=== PATIENT | female | born 1940 | race Caucasian/White ===

== ENCOUNTER 2017-08-24 09:43 | Inpatient (IN) | payer MEDICARE, OTHER ==
[~2017-08-24] VITALS: Ht 160 cm; Wt 91.3 kg
[~2017-08-24 09:43] MED LIST: ASPI81CH43 PO; ATEN-60 PO; DULO30CA2 PO; FURO20TA3 PO; GABA100C9; LEVA3NEB9 IN; LEVO200I5 IV; LEVO75TA6; LIS10T PO; MORP15TA PO; NITR0.4S29 SL; POT10T PO; SENN-58 PO; SIMV-8 PO; TIOTCAP IN
[2017-08-24] MEDS ORDERED: LEVOFLOXACIN 500MG 100 ML IV ONE (11:30)
[2017-08-24] MEDS ORDERED: methylPREDNISolone SOD SUCC 125 MG/2 ML VL IV ONE (11:30)
[2017-08-24] MEDS ORDERED: ALBUTEROL SULF 2.5 MG/0.5ML(0.5%) NEB SOLN HHN ONE (11:30)
[2017-08-24] MEDS ORDERED: IPRATROPIUM BROM 0.5 MG/2.5ML INH SOL HHN ONE (11:30)
[2017-08-24 13:25] LABS: Basophils # (auto) 0 uL; Basophils % (auto) 0.4 % (0.0-2.0); Eosinophils # (auto) 0.1 uL; Eosinophils % (auto) 0.5 % (0.0-7.0); Hematocrit 41.7 % (36.0-46.0); Hemoglobin 13.3 g/dL (12.2-16.2); Lymphocytes # (auto) 0.9 uL; Lymphocytes % (auto) 7.1 % (10.0-50.0); Mean Corpuscular Hemoglobin 26.7 pg (28.0-32.0); Mean Corpuscular Hgb Conc. 31.8 g/dL (32.0-36.0); Mean Corpuscular Volume 84.2 fL (80.0-100.0); Monocytes # (auto) 0.9 uL; Monocytes % (auto) 6.4 % (0.0-12.0); Neutrophils # (auto) 11.4 uL; Neutrophils % (auto) 85.6 % (37.0-80.0); Nucleated Red Blood Cells % 0.1 %; Platelet Count (auto) 358 10^3/uL (140-450); Red Blood Cells 4.96 10^6/uL (4.0-5.20); Red Cell Distribution Width 14.5 % (11.8-14.3); White Blood Cell 13.4 10^3/uL (4.4-10.8)
[2017-08-24 13:38] LABS: BUN/Creatinine Ratio 11.7; Bilirubin, Total 0.7 mg/dL (0.2-1.0); Calcium 8.4 mg/dL (8.5-10.1); Magnesium 2.5 mg/dL (1.6-2.6); Potassium 3.9 mmol/L (3.5-5.1); Total Protein 7.7 g/dL (6.4-8.2)
[2017-08-24] MEDS ORDERED: POTASSIUM CHL 10 Meq TABLET PO ONE (18:45)
[2017-08-24] MEDS ORDERED: FUROSEMIDE 40 MG/4 ML VIAL IV ONE (18:45)
[2017-08-24] MEDS ORDERED: SENNA 8.6 MG TAB PO PRN (19:00)
[2017-08-24] MEDS ORDERED: ACETAMINOPHEN 325 MG TAB PO PRN (19:00)
[2017-08-24] MEDS ORDERED: NITROGLYCERIN 0.4 MG SL TAB SL PRN (19:00)
[2017-08-24] MEDS ORDERED: ONDANSETRON HCL 4 MG/2 ML VIAL IV PRN (19:00)
[2017-08-24] MEDS ORDERED: cefTRIAXone 1GM/10ml IVPUSH 10 ML IV ONE (19:00)
[2017-08-24] MEDS ORDERED: TEMAZEPAM 15 MG CAP PO PRN (19:00)
[2017-08-24] MEDS ORDERED: MORPHINE SULFATE 10 MG/ML INJ 1ML SDV IV PRN ×2 (19:00)
[2017-08-24 20:00] VITALS: BP 151/56
[2017-08-24] MEDS: FAMOTIDINE 20 MG TAB PO SCH (21:35)
[2017-08-24] MEDS: SODIUM CHLOR 0.9% PF (SALINE LOCK) 10ML VIAL IV SCH (21:37)
[2017-08-25 02:40] VITALS: BP 151/56
[2017-08-25 05:52] VITALS: BP 138/69
[2017-08-25] MEDS: ALBUTEROL SULF 2.5 MG/0.5ML(0.5%) NEB SOLN NEB SCH ×4 (05:59→20:18)
[2017-08-25] MEDS: IPRATROPIUM BROM 0.5 MG/2.5ML INH SOL NEB SCH ×4 (05:59→20:18)
[2017-08-25] MEDS: SODIUM CHLOR 0.9% PF (SALINE LOCK) 10ML VIAL IV SCH ×3 (06:12→22:10)
[2017-08-25] MEDS: LEVOTHYROXINE SODIUM 50 MCG TAB PO SCH (06:13)
[2017-08-25 06:33] LABS: Basophils # (auto) 0 uL; Basophils % (auto) 0.2 % (0.0-2.0); Eosinophils # (auto) 0 uL; Hemoglobin 12.9 g/dL (12.2-16.2); Lymphocytes # (auto) 0.6 uL; Lymphocytes % (auto) 6.1 % (10.0-50.0); Mean Corpuscular Hemoglobin 27.6 pg (28.0-32.0); Mean Corpuscular Volume 83.6 fL (80.0-100.0); Monocytes # (auto) 0.3 uL; Monocytes % (auto) 2.9 % (0.0-12.0); Neutrophils % (auto) 90.8 % (37.0-80.0); Platelet Count (auto) 329 10^3/uL (140-450); Red Blood Cells 4.67 10^6/uL (4.0-5.20); Red Cell Distribution Width 14.4 % (11.8-14.3); White Blood Cell 9.9 10^3/uL (4.4-10.8)
[2017-08-25 06:59] LABS: BUN/Creatinine Ratio 21.4; Bilirubin, Total 0.5 mg/dL (0.2-1.0); Calcium 8.5 mg/dL (8.5-10.1); Potassium 4.7 mmol/L (3.5-5.1); Total Protein 7.6 g/dL (6.4-8.2)
[2017-08-25 09:01] VITALS: BP 119/60
[2017-08-25] MEDS: MELOXICAM 7.5 MG PO SCH (10:00)
[2017-08-25] MEDS: LOSARTAN POTASSIUM 50 MG TAB PO SCH ×2 (10:00→17:46)
[2017-08-25] MEDS: FAMOTIDINE 20 MG TAB PO SCH ×2 (10:00→22:00)
[2017-08-25] MEDS: POTASSIUM CHL 10 Meq TABLET PO SCH (10:02)
[2017-08-25] MEDS: ASPirin-EC 81 mg tab PO SCH (10:02)
[2017-08-25] MEDS: MULTIPLE VITAMIN TAB PO SCH (10:03)
[2017-08-25] MEDS: HYDROcodone-ACET 5/325MG TAB PO PRN (10:03)
[2017-08-25] MEDS: Boost Glucose Control 8 Ounces PO SCH ×3 (10:04→18:01)
[2017-08-25] MEDS: FUROSEMIDE 40 MG/4 ML VIAL IV SCH (10:05)
[2017-08-25 12:02] VITALS: BP 120/67
[2017-08-25] MEDS: cefTRIAXone 1GM/10ml IVPUSH 10 ML IV SCH (12:26)
[2017-08-25 16:00] VITALS: BP 147/69
[2017-08-25] MEDS ORDERED: THROAT LOZENGES(CEPASTAT) MT PRN (18:00)
[2017-08-25] MEDS: PROMETHAZINE W/CODEINE 5 ML ORAL SYRUP PO PRN ×2 (18:25→22:28)
[2017-08-25 22:32] LABS: Urine Bacteria NONE SEEN /hpf (None Seen); Urine Blood Negative /uL (Negative); Urine Specific Gravity 1.017 (1.001-1.035); Urine WBC 2 /hpf (0 - 5)
[2017-08-25 22:59] VITALS: BP 162/82
[2017-08-26] VITALS (34 sets, daily range): BP systolic 45–185; BP diastolic 26–88
[2017-08-26] MEDS: ALBUTEROL SULF 2.5 MG/0.5ML(0.5%) NEB SOLN NEB SCH ×4 (00:28→18:17)
[2017-08-26] MEDS: IPRATROPIUM BROM 0.5 MG/2.5ML INH SOL NEB SCH ×4 (00:28→18:17)
[2017-08-26] MEDS: HYDROcodone-ACET 5/325MG TAB PO PRN (01:34)
[2017-08-26] MEDS ORDERED: METOPROLOL TARTRATE 1MG/1ML-5ML VIAL IV ONE (03:00)
[2017-08-26] MEDS: LEVOTHYROXINE SODIUM 50 MCG TAB PO SCH (06:00)
[2017-08-26] MEDS: SODIUM CHLOR 0.9% PF (SALINE LOCK) 10ML VIAL IV SCH ×3 (06:13→21:56)
[2017-08-26 06:41] LABS: Basophils # (auto) 0 uL; Basophils % (auto) 0.1 % (0.0-2.0); Eosinophils # (auto) 0 uL; Eosinophils % (auto) 0.1 % (0.0-7.0); Hematocrit 38.9 % (36.0-46.0); Hemoglobin 12.9 g/dL (12.2-16.2); Lymphocytes # (auto) 0.8 uL; Lymphocytes % (auto) 7.5 % (10.0-50.0); Mean Corpuscular Hemoglobin 27.2 pg (28.0-32.0); Mean Corpuscular Hgb Conc. 33.2 g/dL (32.0-36.0); Mean Corpuscular Volume 81.8 fL (80.0-100.0); Monocytes # (auto) 1.1 uL; Monocytes % (auto) 10.3 % (0.0-12.0); Neutrophils # (auto) 8.8 uL; Nucleated Red Blood Cells % 0.1 %; Platelet Count (auto) 309 10^3/uL (140-450); Red Blood Cells 4.76 10^6/uL (4.0-5.20); Red Cell Distribution Width 14.8 % (11.8-14.3); White Blood Cell 10.7 10^3/uL (4.4-10.8)
[2017-08-26 07:27] LABS: Albumin 3.1 g/dL (3.4-5.0); BUN/Creatinine Ratio 25.6; Bilirubin, Total 0.4 mg/dL (0.2-1.0); Calcium 8.5 mg/dL (8.5-10.1); Potassium 4.3 mmol/L (3.5-5.1); Total Protein 7.6 g/dL (6.4-8.2)
[2017-08-26] MEDS ORDERED: LABETALOL HCL 5 MG/ML ML 20ML VIAL IV ONE ×2 (09:39→13:30)
[2017-08-26] MEDS: LOSARTAN POTASSIUM 50 MG TAB PO SCH (10:00)
[2017-08-26] MEDS: MULTIPLE VITAMIN TAB PO SCH (10:00)
[2017-08-26] MEDS: ASPirin-EC 81 mg tab PO SCH (10:00)
[2017-08-26] MEDS: MELOXICAM 7.5 MG PO SCH (10:00)
[2017-08-26] MEDS: POTASSIUM CHL 10 Meq TABLET PO SCH (10:00)
[2017-08-26] MEDS: FAMOTIDINE 20 MG TAB PO SCH ×2 (10:00→21:55)
[2017-08-26] MEDS ORDERED: FUROSEMIDE 40 MG/4 ML VIAL IV ONE (12:00)
[2017-08-26] MEDS ORDERED: ALBUTEROL SULF 2.5 MG/0.5ML(0.5%) NEB SOLN NEB ONE (12:00)
[2017-08-26] MEDS ORDERED: IPRATROPIUM BROM 0.5 MG/2.5ML INH SOL NEB ONE (12:00)
[2017-08-26] MEDS: Boost Glucose Control 8 Ounces PO SCH ×3 (12:00→18:00)
[2017-08-26] MEDS: cefTRIAXone 1GM/10ml IVPUSH 10 ML IV SCH (13:25)
[2017-08-26] MEDS: FUROSEMIDE 40 MG/4 ML VIAL IV SCH ×2 (13:27→20:23)
[2017-08-26] MEDS ORDERED: LORazepam 2MG/ML-1ML VIAL ONE (14:07)
[2017-08-26] MEDS ORDERED: LORazepam 2MG/ML-1ML VIAL IV ONE (14:15)
[2017-08-26] MEDS ORDERED: ETOMIDATE (2MG/ML) 20ML VIAL IV ONE (16:21)
[2017-08-26] MEDS ORDERED: ROCURONIUM 10MG/ML 10ML VIAL IV ONE (16:22)
[2017-08-26] MEDS ORDERED: SUCCINYLCHOLINE CHLORIDE 20 MG/ML 10ML VIAL IV ONE (16:22)
[2017-08-26] MEDS ORDERED: MIDAZOLAM HCL 1MG/1ML-2 ML VIAL ONE (16:28)
[2017-08-26] MEDS ORDERED: PROPOFOL 100 ML IV ONE (16:32)
[2017-08-26] MEDS ORDERED: NOREPINEPHRINE 8 MG/250ML KIT 250 ML IV ONE (18:30)
[2017-08-26] MEDS: PROPOFOL 100 ML IV SCH (19:20)
[2017-08-26] MEDS: NOREPINEPHRINE 8 MG/250ML KIT 250 ML IV SCH (20:11)
[2017-08-26] MEDS: MIDAZOLAM DRIP 50 mg/50mL 50 ML IV SCH (20:11)
[2017-08-26] MEDS: fentaNYL Drip 2500mCg/250mlNS 250 ML IV SCH (20:48)
[2017-08-26] MEDS ORDERED: POTASSIUM CHL 10 Meq TABLET PO SCH (22:00)
[2017-08-27] VITALS (105 sets, daily range): BP systolic 68–142; BP diastolic 43–79
[2017-08-27] MEDS: ALBUTEROL SULF 2.5 MG/0.5ML(0.5%) NEB SOLN NEB SCH ×4 (00:13→18:00)
[2017-08-27] MEDS: IPRATROPIUM BROM 0.5 MG/2.5ML INH SOL NEB SCH ×4 (00:14→18:00)
[2017-08-27] MEDS: MIDAZOLAM DRIP 50 mg/50mL 50 ML IV SCH ×2 (01:34→10:15)
[2017-08-27] MEDS: NOREPINEPHRINE 8 MG/250ML KIT 250 ML IV SCH ×2 (01:35→14:28)
[2017-08-27 03:27] LABS: Hemoglobin 11.8 g/dL (12.2-16.2); Mean Corpuscular Hgb Conc. 32.9 g/dL (32.0-36.0); Platelet Count (auto) 274 10^3/uL (140-450); Red Blood Cells 4.39 10^6/uL (4.0-5.20); Red Cell Distribution Width 15.1 % (11.8-14.3); White Blood Cell 7.7 10^3/uL (4.4-10.8)
[2017-08-27 03:30] LABS: Basophils % (manual) 0 (0.0-2.0); Blast Cells 0; Eosinophils % (manual) 0 (0-7); Metamyelocytes % 0; Myelocytes % 0; Promyelocytes % 0; Reactive Lymphocytes 0
[2017-08-27 04:03] LABS: Albumin 2.7 g/dL (3.4-5.0); BUN/Creatinine Ratio 23.7; Bilirubin, Total 0.6 mg/dL (0.2-1.0); Calcium 7.6 mg/dL (8.5-10.1); Potassium 3.8 mmol/L (3.5-5.1); Total Protein 6.6 g/dL (6.4-8.2)
[2017-08-27] MEDS: SODIUM CHLOR 0.9% PF (SALINE LOCK) 10ML VIAL IV SCH ×3 (05:42→21:29)
[2017-08-27] MEDS: FUROSEMIDE 40 MG/4 ML VIAL IV SCH ×2 (05:42→10:01)
[2017-08-27] MEDS: LEVOTHYROXINE SODIUM 50 MCG TAB PO SCH (06:34)
[2017-08-27 06:54] LABS: Band Neutrophils % (manual) 6; Lymphocytes % (manual) 19 (10.0-50.0); Monocytes % (manual) 22 (0-12)
[2017-08-27] MEDS: Boost Glucose Control 8 Ounces PO SCH ×2 (08:00→12:00)
[2017-08-27] MEDS: LOSARTAN POTASSIUM 50 MG TAB PO SCH (10:00)
[2017-08-27] MEDS: ASPirin-EC 81 mg tab PO SCH (10:00)
[2017-08-27] MEDS: MELOXICAM 7.5 MG PO SCH (10:00)
[2017-08-27] MEDS: MULTIPLE VITAMIN TAB PO SCH (10:01)
[2017-08-27] MEDS: FAMOTIDINE 20 MG TAB PO SCH (10:01)
[2017-08-27] MEDS: POTASSIUM CHL 10% (20 MEQ/15ML) 15ml ORAL SOLN PO SCH ×2 (10:02→21:29)
[2017-08-27] MEDS: cefTRIAXone 1GM/10ml IVPUSH 10 ML IV SCH (10:03)
[2017-08-27] MEDS ORDERED: ENOXAPARIN SOD 40 MG/0.4 ML SYRINGE SC ONE (13:00)
[2017-08-27] MEDS: CLINDAMYCIN 600MG IV 50 ML IV SCH ×2 (13:28→21:29)
[2017-08-27] MEDS: PROPOFOL 100 ML IV SCH (14:49)
[2017-08-27] MEDS: fentaNYL Drip 2500mCg/250mlNS 250 ML IV SCH (15:53)
[2017-08-27] MEDS: MIDAZOLAM DRIP 100 mg/100mL NS 100 ML IV SCH (21:30)
[2017-08-28] VITALS (100 sets, daily range): BP systolic 79–136; BP diastolic 43–99
[2017-08-28] MEDS: ALBUTEROL SULF 2.5 MG/0.5ML(0.5%) NEB SOLN NEB SCH ×5 (00:03→23:50)
[2017-08-28] MEDS: IPRATROPIUM BROM 0.5 MG/2.5ML INH SOL NEB SCH ×5 (00:03→23:50)
[2017-08-28 04:22] LABS: Basophils # (auto) 0 uL; Basophils % (auto) 0.8 % (0.0-2.0); Eosinophils # (auto) 0 uL; Eosinophils % (auto) 0.3 % (0.0-7.0); Hemoglobin 11.6 g/dL (12.2-16.2); Lymphocytes # (auto) 1.2 uL; Lymphocytes % (auto) 21.7 % (10.0-50.0); Mean Corpuscular Hemoglobin 26.8 pg (28.0-32.0); Mean Corpuscular Hgb Conc. 33.2 g/dL (32.0-36.0); Mean Corpuscular Volume 80.8 fL (80.0-100.0); Monocytes # (auto) 0.9 uL; Monocytes % (auto) 16.3 % (0.0-12.0); Neutrophils # (auto) 3.5 uL; Neutrophils % (auto) 60.9 % (37.0-80.0); Nucleated Red Blood Cells % 0.1 %; Platelet Count (auto) 231 10^3/uL (140-450); Red Blood Cells 4.34 10^6/uL (4.0-5.20); Red Cell Distribution Width 14.7 % (11.8-14.3); White Blood Cell 5.7 10^3/uL (4.4-10.8)
[2017-08-28 04:31] LABS: Potassium 3.7 mmol/L (3.5-5.1)
[2017-08-28 04:34] LABS: BUN/Creatinine Ratio 26.5; Calcium 8.2 mg/dL (8.5-10.1)
[2017-08-28] MEDS: SODIUM CHLOR 0.9% PF (SALINE LOCK) 10ML VIAL IV SCH ×3 (05:47→22:13)
[2017-08-28] MEDS: CLINDAMYCIN 600MG IV 50 ML IV SCH ×2 (05:47→14:35)
[2017-08-28] MEDS: LEVOTHYROXINE SODIUM 25 MCG TAB PO SCH (05:48)
[2017-08-28] MEDS: MIDAZOLAM DRIP 100 mg/100mL NS 100 ML IV SCH ×2 (06:43→19:00)
[2017-08-28] MEDS: cefTRIAXone 1GM/10ml IVPUSH 10 ML IV SCH (10:11)
[2017-08-28] MEDS: ENOXAPARIN SOD 40 MG/0.4 ML SYRINGE SC SCH (10:11)
[2017-08-28] MEDS: ASPirin 81 mg TAB PO SCH (10:11)
[2017-08-28] MEDS: FAMOTIDINE (10MG/ML) 2ML VL IV SCH (10:11)
[2017-08-28] MEDS: POTASSIUM CHL 10% (20 MEQ/15ML) 15ml ORAL SOLN PO SCH ×2 (10:16→22:30)
[2017-08-28] MEDS ORDERED: VANCOMYCIN PER PHARMACY 0 MG IV SCH (16:15)
[2017-08-28] MEDS ORDERED: FLUCONAZOLE 200MG/100ML 100 ML IV ONE (16:15)
[2017-08-28] MEDS ORDERED: Fibersource Hn 1 Liter GT SCH (16:15)
[2017-08-28] MEDS ORDERED: Nutren Pulmonary 1 Liter GT SCH (16:45)
[2017-08-28] MEDS: PROPOFOL 100 ML IV SCH (16:46)
[2017-08-28] MEDS: fentaNYL Drip 2500mCg/250mlNS 250 ML IV SCH ×2 (17:09→19:42)
[2017-08-28] MEDS ORDERED: VANCOMYCIN 1,250 MG in D5W 5% 250 ML IV SCH (18:00)
[2017-08-28] MEDS: NOREPINEPHRINE 8 MG/250ML KIT 250 ML IV SCH (19:42)
[2017-08-29] VITALS (101 sets, daily range): BP systolic 83–197; BP diastolic 43–131
[2017-08-29 04:40] LABS: Basophils # (auto) 0 uL; Eosinophils # (auto) 0 uL; Lymphocytes # (auto) 1.1 uL; Monocytes # (auto) 0.6 uL; Neutrophils # (auto) 2.2 uL; White Blood Cell 3.9 10^3/uL (4.4-10.8)
[2017-08-29 04:43] LABS: Basophils % (auto) 0.6 % (0.0-2.0); Eosinophils % (auto) 0.9 % (0.0-7.0); Hematocrit 34.7 % (36.0-46.0); Hemoglobin 11.4 g/dL (12.2-16.2); Lymphocytes % (auto) 27.1 % (10.0-50.0); Mean Corpuscular Hemoglobin 26.9 pg (28.0-32.0); Mean Corpuscular Hgb Conc. 32.8 g/dL (32.0-36.0); Monocytes % (auto) 15.5 % (0.0-12.0); Neutrophils % (auto) 55.9 % (37.0-80.0); Nucleated Red Blood Cells % 0.1 %; Platelet Count (auto) 189 10^3/uL (140-450); Red Blood Cells 4.23 10^6/uL (4.0-5.20); Red Cell Distribution Width 14.8 % (11.8-14.3)
[2017-08-29 04:58] LABS: BUN/Creatinine Ratio 38.3; Calcium 8.3 mg/dL (8.5-10.1); Potassium 3.5 mmol/L (3.5-5.1)
[2017-08-29] MEDS: LEVOTHYROXINE SODIUM 25 MCG TAB PO SCH (05:49)
[2017-08-29] MEDS: SODIUM CHLOR 0.9% PF (SALINE LOCK) 10ML VIAL IV SCH ×3 (05:50→21:29)
[2017-08-29] MEDS: IPRATROPIUM BROM 0.5 MG/2.5ML INH SOL NEB SCH ×3 (06:07→18:50)
[2017-08-29] MEDS: ALBUTEROL SULF 2.5 MG/0.5ML(0.5%) NEB SOLN NEB SCH ×3 (06:07→18:50)
[2017-08-29] MEDS: FLUCONAZOLE 200MG/100ML 100 ML IV SCH (09:56)
[2017-08-29] MEDS: FAMOTIDINE (10MG/ML) 2ML VL IV SCH (09:56)
[2017-08-29] MEDS: ENOXAPARIN SOD 40 MG/0.4 ML SYRINGE SC SCH (09:56)
[2017-08-29] MEDS: ASPirin 81 mg TAB PO SCH (09:56)
[2017-08-29] MEDS: POTASSIUM CHL 10% (20 MEQ/15ML) 15ml ORAL SOLN PO SCH ×2 (09:57→21:29)
[2017-08-29] MEDS: cefTRIAXone 1GM/10ml IVPUSH 10 ML IV SCH (09:57)
[2017-08-29] MEDS: PROPOFOL 100 ML IV SCH (16:46)
[2017-08-29] MEDS: VANCOMYCIN 1,250 MG in SODIUM CHL 0.9% 250 ML IV SCH (18:09)
[2017-08-29] MEDS: MIDAZOLAM DRIP 100 mg/100mL NS 100 ML IV SCH (19:00)
[2017-08-29] MEDS: NOREPINEPHRINE 8 MG/250ML KIT 250 ML IV SCH (19:18)
[2017-08-29] MEDS: fentaNYL Drip 2500mCg/250mlNS 250 ML IV SCH (21:30)
[2017-08-30] VITALS (109 sets, daily range): BP systolic 90–140; BP diastolic 41–82
[2017-08-30] MEDS: ALBUTEROL SULF 2.5 MG/0.5ML(0.5%) NEB SOLN NEB SCH ×4 (00:26→18:31)
[2017-08-30] MEDS: IPRATROPIUM BROM 0.5 MG/2.5ML INH SOL NEB SCH ×4 (00:26→18:31)
[2017-08-30 04:47] LABS: Basophils # (auto) 0 uL; Eosinophils # (auto) 0.1 uL; Lymphocytes # (auto) 1.6 uL; Monocytes # (auto) 0.7 uL; Neutrophils # (auto) 2.8 uL; Red Blood Cells 4.36 10^6/uL (4.0-5.20)
[2017-08-30 04:49] LABS: Basophils % (auto) 0.8 % (0.0-2.0); Eosinophils % (auto) 1.7 % (0.0-7.0); Hematocrit 35.7 % (36.0-46.0); Hemoglobin 11.6 g/dL (12.2-16.2); Lymphocytes % (auto) 30.3 % (10.0-50.0); Mean Corpuscular Hemoglobin 26.6 pg (28.0-32.0); Mean Corpuscular Hgb Conc. 32.4 g/dL (32.0-36.0); Mean Corpuscular Volume 81.9 fL (80.0-100.0); Monocytes % (auto) 14.2 % (0.0-12.0); Nucleated Red Blood Cells % 0.1 %; Platelet Count (auto) 215 10^3/uL (140-450); Red Cell Distribution Width 14.9 % (11.8-14.3); White Blood Cell 5.2 10^3/uL (4.4-10.8)
[2017-08-30 05:07] LABS: BUN/Creatinine Ratio 37.6; Calcium 8.6 mg/dL (8.5-10.1); Potassium 3.8 mmol/L (3.5-5.1)
[2017-08-30] MEDS: SODIUM CHLOR 0.9% PF (SALINE LOCK) 10ML VIAL IV SCH ×3 (05:50→21:41)
[2017-08-30] MEDS: LEVOTHYROXINE SODIUM 25 MCG TAB PO SCH (06:36)
[2017-08-30] MEDS: FLUCONAZOLE 200MG/100ML 100 ML IV SCH (09:42)
[2017-08-30] MEDS: FAMOTIDINE (10MG/ML) 2ML VL IV SCH (09:42)
[2017-08-30] MEDS: ENOXAPARIN SOD 40 MG/0.4 ML SYRINGE SC SCH (09:42)
[2017-08-30] MEDS: ASPirin 81 mg TAB PO SCH (09:42)
[2017-08-30] MEDS: cefTRIAXone 1GM/10ml IVPUSH 10 ML IV SCH (09:43)
[2017-08-30] MEDS: POTASSIUM CHL 10% (20 MEQ/15ML) 15ml ORAL SOLN PO SCH ×2 (09:43→21:35)
[2017-08-30] MEDS: PROPOFOL 100 ML IV SCH (16:46)
[2017-08-30] MEDS: VANCOMYCIN 1,250 MG in SODIUM CHL 0.9% 250 ML IV SCH (18:30)
[2017-08-30] MEDS: MIDAZOLAM DRIP 100 mg/100mL NS 100 ML IV SCH (19:00)
[2017-08-30] MEDS: NOREPINEPHRINE 8 MG/250ML KIT 250 ML IV SCH (19:18)
[2017-08-31] VITALS (94 sets, daily range): BP systolic 91–168; BP diastolic 48–118
[2017-08-31] MEDS: IPRATROPIUM BROM 0.5 MG/2.5ML INH SOL NEB SCH ×4 (00:09→18:46)
[2017-08-31] MEDS: ALBUTEROL SULF 2.5 MG/0.5ML(0.5%) NEB SOLN NEB SCH ×4 (00:09→18:46)
[2017-08-31 04:00] LABS: Basophils # (auto) 0 uL; Eosinophils # (auto) 0.1 uL; Lymphocytes # (auto) 1.2 uL; Neutrophils # (auto) 3.3 uL
[2017-08-31 04:03] LABS: Basophils % (auto) 0.8 % (0.0-2.0); Eosinophils % (auto) 2.3 % (0.0-7.0); Hemoglobin 11.5 g/dL (12.2-16.2); Lymphocytes % (auto) 23.1 % (10.0-50.0); Mean Corpuscular Hemoglobin 26.9 pg (28.0-32.0); Mean Corpuscular Hgb Conc. 32.7 g/dL (32.0-36.0); Mean Corpuscular Volume 82.3 fL (80.0-100.0); Monocytes # (auto) 0.6 uL; Monocytes % (auto) 11.4 % (0.0-12.0); Neutrophils % (auto) 62.4 % (37.0-80.0); Platelet Count (auto) 203 10^3/uL (140-450); Red Blood Cells 4.26 10^6/uL (4.0-5.20); Red Cell Distribution Width 14.8 % (11.8-14.3); White Blood Cell 5.4 10^3/uL (4.4-10.8)
[2017-08-31 04:18] LABS: Albumin 2.3 g/dL (3.4-5.0); BUN/Creatinine Ratio 34.1; Calcium 8.5 mg/dL (8.5-10.1); Potassium 3.9 mmol/L (3.5-5.1)
[2017-08-31 04:21] LABS: Bilirubin, Total 0.4 mg/dL (0.2-1.0); Total Protein 6.5 g/dL (6.4-8.2)
[2017-08-31] MEDS: SODIUM CHLOR 0.9% PF (SALINE LOCK) 10ML VIAL IV SCH ×3 (06:32→21:45)
[2017-08-31] MEDS: LEVOTHYROXINE SODIUM 25 MCG TAB PO SCH (06:32)
[2017-08-31] MEDS: DEXMEDETOMIDINE HCL 400 MCG in D5W 5% 96 ML IV SCH (08:51)
[2017-08-31] MEDS: cefTRIAXone 1GM/10ml IVPUSH 10 ML IV SCH (09:00)
[2017-08-31] MEDS: ASPirin 81 mg TAB PO SCH (10:21)
[2017-08-31] MEDS: ENOXAPARIN SOD 40 MG/0.4 ML SYRINGE SC SCH (10:21)
[2017-08-31] MEDS: FAMOTIDINE (10MG/ML) 2ML VL IV SCH (10:21)
[2017-08-31] MEDS: FLUCONAZOLE 200MG/100ML 100 ML IV SCH (10:21)
[2017-08-31] MEDS: POTASSIUM CHL 10% (20 MEQ/15ML) 15ml ORAL SOLN PO SCH ×2 (10:21→21:46)
[2017-08-31] MEDS ORDERED: POTASSIUM CHL 10% (20 MEQ/15ML) 15ml ORAL SOLN GT ONE (12:45)
[2017-08-31] MEDS ORDERED: FUROSEMIDE 20 MG/2 ML VIAL IV ONE (12:45)
[2017-08-31] MEDS: methylPREDNISolone SOD SUCC 40 MG/ML VL IV SCH ×2 (14:07→21:46)
[2017-08-31] MEDS: fentaNYL Drip 2500mCg/250mlNS 250 ML IV SCH (15:07)
[2017-08-31] MEDS: PROPOFOL 100 ML IV SCH (16:46)
[2017-08-31] MEDS: VANCOMYCIN 1,250 MG in SODIUM CHL 0.9% 250 ML IV SCH (18:00)
[2017-08-31] MEDS: MIDAZOLAM DRIP 100 mg/100mL NS 100 ML IV SCH (19:00)
[2017-08-31] MEDS: NOREPINEPHRINE 8 MG/250ML KIT 250 ML IV SCH (19:18)
[2017-09-01] VITALS (97 sets, daily range): BP systolic 113–185; BP diastolic 52–111
[2017-09-01] MEDS: ALBUTEROL SULF 2.5 MG/0.5ML(0.5%) NEB SOLN NEB SCH ×4 (00:29→19:52)
[2017-09-01] MEDS: IPRATROPIUM BROM 0.5 MG/2.5ML INH SOL NEB SCH ×4 (00:29→19:52)
[2017-09-01 03:51] LABS: Basophils # (auto) 0 uL; Basophils % (auto) 0.6 % (0.0-2.0); Eosinophils # (auto) 0 uL; Hematocrit 36.1 % (36.0-46.0); Lymphocytes # (auto) 0.6 uL; Lymphocytes % (auto) 12.8 % (10.0-50.0); Mean Corpuscular Hgb Conc. 33.2 g/dL (32.0-36.0); Mean Corpuscular Volume 81.4 fL (80.0-100.0); Monocytes # (auto) 0 uL; Monocytes % (auto) 1.1 % (0.0-12.0); Neutrophils # (auto) 3.7 uL; Neutrophils % (auto) 85.5 % (37.0-80.0); Nucleated Red Blood Cells % 0.1 %; Platelet Count (auto) 229 10^3/uL (140-450); Red Blood Cells 4.44 10^6/uL (4.0-5.20); Red Cell Distribution Width 14.6 % (11.8-14.3); White Blood Cell 4.3 10^3/uL (4.4-10.8)
[2017-09-01 04:13] LABS: BUN/Creatinine Ratio 29.8; Calcium 8.8 mg/dL (8.5-10.1); Potassium 4.5 mmol/L (3.5-5.1)
[2017-09-01] MEDS: DEXMEDETOMIDINE HCL 400 MCG in D5W 5% 96 ML IV SCH (04:33)
[2017-09-01] MEDS ORDERED: VANCOMYCIN 750 MG in SODIUM CHL 0.9% 250 ML IV SCH (06:00)
[2017-09-01] MEDS: methylPREDNISolone SOD SUCC 40 MG/ML VL IV SCH ×3 (06:10→21:41)
[2017-09-01] MEDS: SODIUM CHLOR 0.9% PF (SALINE LOCK) 10ML VIAL IV SCH ×3 (06:10→21:41)
[2017-09-01] MEDS: VANCOMYCIN 750 MG in D5W 5% 250 ML IV SCH ×2 (06:10→17:52)
[2017-09-01] MEDS: LEVOTHYROXINE SODIUM 25 MCG TAB PO SCH (06:51)
[2017-09-01] MEDS: cefTRIAXone 1GM/10ml IVPUSH 10 ML IV SCH (09:00)
[2017-09-01] MEDS: ASPirin 81 mg TAB PO SCH (09:31)
[2017-09-01] MEDS: FLUCONAZOLE 200MG/100ML 100 ML IV SCH (09:31)
[2017-09-01] MEDS: FAMOTIDINE (10MG/ML) 2ML VL IV SCH (09:31)
[2017-09-01] MEDS: ENOXAPARIN SOD 40 MG/0.4 ML SYRINGE SC SCH (09:32)
[2017-09-01] MEDS: POTASSIUM CHL 10% (20 MEQ/15ML) 15ml ORAL SOLN PO SCH ×2 (09:32→21:42)
[2017-09-01] MEDS ORDERED: LACTULOSE 20Gm/30ML SOLN ONE (09:41)
[2017-09-01] MEDS ORDERED: FUROSEMIDE 20 MG/2 ML VIAL IV ONE (13:00)
[2017-09-01] MEDS ORDERED: POTASSIUM CHL 10% (20 MEQ/15ML) 15ml ORAL SOLN GT ONE (13:00)
[2017-09-01] MEDS ORDERED: MORPHINE SULFATE 10 MG/ML INJ 1ML SDV IV PRN (13:00)
[2017-09-01] MEDS ORDERED: METOPROLOL TARTRATE 25 MG TAB PO ONE (13:00)
[2017-09-01] MEDS ORDERED: LACTULOSE 20Gm/30ML SOLN PO ONE (13:15)
[2017-09-01] MEDS: METOPROLOL TARTRATE 25 MG TAB PO SCH (21:42)
[2017-09-02] VITALS (28 sets, daily range): BP systolic 129–195; BP diastolic 31–118
[2017-09-02] MEDS: IPRATROPIUM BROM 0.5 MG/2.5ML INH SOL NEB SCH ×4 (00:40→19:21)
[2017-09-02] MEDS: ALBUTEROL SULF 2.5 MG/0.5ML(0.5%) NEB SOLN NEB SCH ×4 (00:40→19:21)
[2017-09-02] MEDS: MORPHINE SULF INJ 2 MG/ML SYRINGE 1ML IV PRN (02:50)
[2017-09-02] MEDS: DOCUSATE SOD 100 MG CAP PO PRN (04:17)
[2017-09-02] MEDS: VANCOMYCIN 750 MG in D5W 5% 250 ML IV SCH ×2 (06:00→18:00)
[2017-09-02] MEDS: methylPREDNISolone SOD SUCC 40 MG/ML VL IV SCH ×3 (06:23→22:10)
[2017-09-02] MEDS: LEVOTHYROXINE SODIUM 25 MCG TAB PO SCH (06:23)
[2017-09-02] MEDS: SODIUM CHLOR 0.9% PF (SALINE LOCK) 10ML VIAL IV SCH ×3 (06:23→22:00)
[2017-09-02] MEDS: cefTRIAXone 1GM/10ml IVPUSH 10 ML IV SCH (07:51)
[2017-09-02 08:32] LABS: Basophils # (auto) 0 uL; Eosinophils # (auto) 0 uL; Lymphocytes # (auto) 0.6 uL; Monocytes # (auto) 0.3 uL; White Blood Cell 8.4 10^3/uL (4.4-10.8)
[2017-09-02 08:33] LABS: Basophils % (auto) 0.3 % (0.0-2.0); Hematocrit 38.5 % (36.0-46.0); Hemoglobin 12.3 g/dL (12.2-16.2); Lymphocytes % (auto) 7.1 % (10.0-50.0); Mean Corpuscular Hemoglobin 26.5 pg (28.0-32.0); Mean Corpuscular Volume 82.8 fL (80.0-100.0); Monocytes % (auto) 3.8 % (0.0-12.0); Neutrophils # (auto) 7.5 uL; Neutrophils % (auto) 88.8 % (37.0-80.0); Platelet Count (auto) 300 10^3/uL (140-450); Red Blood Cells 4.65 10^6/uL (4.0-5.20); Red Cell Distribution Width 14.5 % (11.8-14.3)
[2017-09-02 09:02] LABS: Potassium 3.8 mmol/L (3.5-5.1)
[2017-09-02 09:03] LABS: BUN/Creatinine Ratio 36.6; Calcium 9.1 mg/dL (8.5-10.1)
[2017-09-02] MEDS: FLUCONAZOLE 200MG/100ML 100 ML IV SCH (09:05)
[2017-09-02] MEDS: METOPROLOL TARTRATE 25 MG TAB PO SCH ×2 (09:06→22:10)
[2017-09-02] MEDS: ENOXAPARIN SOD 40 MG/0.4 ML SYRINGE SC SCH (09:06)
[2017-09-02] MEDS: ASPirin 81 mg TAB PO SCH (09:06)
[2017-09-02] MEDS: POTASSIUM CHL 10% (20 MEQ/15ML) 15ml ORAL SOLN PO SCH ×2 (09:07→22:10)
[2017-09-02] MEDS: FAMOTIDINE (10MG/ML) 2ML VL IV SCH (09:07)
[2017-09-02] MEDS ORDERED: FUROSEMIDE 40 MG/4 ML VIAL IV ONE (12:30)
[2017-09-02] MEDS ORDERED: MORPHINE SULF 15mg ER tab PO ONE (12:30)
[2017-09-02] MEDS ORDERED: POTASSIUM CHL 20 Meq TABLET PO ONE ×2 (12:30)
[2017-09-02] MEDS ORDERED: MORPHINE SULF INJ 2 MG/ML SYRINGE 1ML IM ONE (13:00)
[2017-09-03] MEDS: ALBUTEROL SULF 2.5 MG/0.5ML(0.5%) NEB SOLN NEB SCH ×4 (00:18→18:59)
[2017-09-03] MEDS: IPRATROPIUM BROM 0.5 MG/2.5ML INH SOL NEB SCH ×4 (00:18→18:59)
[2017-09-03] MEDS: cloNIDine HCL 0.1 MG TAB PO PRN ×5 (00:41→23:03)
[2017-09-03 04:54] VITALS: BP 189/89
[2017-09-03] MEDS: SODIUM CHLOR 0.9% PF (SALINE LOCK) 10ML VIAL IV SCH ×3 (06:00→21:42)
[2017-09-03] MEDS: methylPREDNISolone SOD SUCC 40 MG/ML VL IV SCH (06:00)
[2017-09-03 06:28] LABS: Basophils # (auto) 0 uL; Eosinophils # (auto) 0 uL; Monocytes # (auto) 0.4 uL; Monocytes % (auto) 4.8 % (0.0-12.0); Red Cell Distribution Width 14.4 % (11.8-14.3); White Blood Cell 7.5 10^3/uL (4.4-10.8)
[2017-09-03 06:31] LABS: Basophils % (auto) 0.1 % (0.0-2.0); Hematocrit 38.8 % (36.0-46.0); Hemoglobin 12.6 g/dL (12.2-16.2); Lymphocytes # (auto) 0.5 uL; Lymphocytes % (auto) 7.3 % (10.0-50.0); Mean Corpuscular Hemoglobin 26.8 pg (28.0-32.0); Mean Corpuscular Hgb Conc. 32.6 g/dL (32.0-36.0); Mean Corpuscular Volume 82.1 fL (80.0-100.0); Neutrophils # (auto) 6.6 uL; Neutrophils % (auto) 87.8 % (37.0-80.0); Nucleated Red Blood Cells % 0.1 %; Platelet Count (auto) 318 10^3/uL (140-450); Red Blood Cells 4.72 10^6/uL (4.0-5.20)
[2017-09-03] MEDS: LEVOTHYROXINE SODIUM 25 MCG TAB PO SCH (06:44)
[2017-09-03 06:47] LABS: BUN/Creatinine Ratio 41.6; Calcium 9.3 mg/dL (8.5-10.1); Potassium 4.2 mmol/L (3.5-5.1)
[2017-09-03 07:30] VITALS: BP 189/89
[2017-09-03] MEDS: cefTRIAXone 1GM/10ml IVPUSH 10 ML IV SCH (09:28)
[2017-09-03] MEDS: FUROSEMIDE 40 MG TAB PO SCH (09:29)
[2017-09-03] MEDS: ASPirin 81 mg TAB PO SCH (09:30)
[2017-09-03] MEDS: METOPROLOL TARTRATE 25 MG TAB PO SCH ×2 (09:30→22:00)
[2017-09-03] MEDS: LISINOPRIL 10 MG TAB PO SCH (09:30)
[2017-09-03] MEDS: POTASSIUM CHL 10% (20 MEQ/15ML) 15ml ORAL SOLN PO SCH ×2 (09:31→21:59)
[2017-09-03] MEDS: ENOXAPARIN SOD 40 MG/0.4 ML SYRINGE SC SCH (09:31)
[2017-09-03] MEDS: MORPHINE SULF 15mg ER tab PO PRN ×2 (09:47→22:00)
[2017-09-03] MEDS: FLUCONAZOLE 200MG/100ML 100 ML IV SCH (09:47)
[2017-09-03] MEDS: VANCOMYCIN 1GM/250ML 250 ML IV SCH (09:49)
[2017-09-03 11:00] VITALS: BP 160/79
[2017-09-03 18:05] VITALS: BP 154/87
[2017-09-03] MEDS: DOCUSATE SOD 100 MG CAP PO PRN (19:04)
[2017-09-03] MEDS ORDERED: LACTULOSE 20Gm/30ML SOLN PO PRN (20:30)
[2017-09-03] MEDS: FAMOTIDINE 20 MG TAB PO SCH (21:59)
[2017-09-03 22:02] VITALS: BP 162/79
[2017-09-04] MEDS: ALBUTEROL SULF 2.5 MG/0.5ML(0.5%) NEB SOLN NEB SCH ×3 (00:11→13:20)
[2017-09-04] MEDS: IPRATROPIUM BROM 0.5 MG/2.5ML INH SOL NEB SCH ×3 (00:11→13:20)
[2017-09-04] MEDS: MORPHINE SULF INJ 2 MG/ML SYRINGE 1ML IV PRN (02:36)
[2017-09-04] MEDS: SODIUM CHLOR 0.9% PF (SALINE LOCK) 10ML VIAL IV SCH (05:19)
[2017-09-04 05:24] VITALS: BP 155/76
[2017-09-04 06:32] LABS: Basophils # (auto) 0 uL; Basophils % (auto) 0.1 % (0.0-2.0); Eosinophils # (auto) 0 uL; Lymphocytes # (auto) 1.5 uL
[2017-09-04 06:38] LABS: Eosinophils % (auto) 0.1 % (0.0-7.0); Hematocrit 36.6 % (36.0-46.0); Hemoglobin 11.9 g/dL (12.2-16.2); Lymphocytes % (auto) 16.1 % (10.0-50.0); Mean Corpuscular Hemoglobin 26.7 pg (28.0-32.0); Mean Corpuscular Hgb Conc. 32.4 g/dL (32.0-36.0); Mean Corpuscular Volume 82.2 fL (80.0-100.0); Monocytes % (auto) 11.3 % (0.0-12.0); Neutrophils # (auto) 6.7 uL; Neutrophils % (auto) 72.4 % (37.0-80.0); Nucleated Red Blood Cells % 0.1 %; Platelet Count (auto) 299 10^3/uL (140-450); Red Blood Cells 4.45 10^6/uL (4.0-5.20); Red Cell Distribution Width 14.4 % (11.8-14.3); White Blood Cell 9.2 10^3/uL (4.4-10.8)
[2017-09-04] MEDS: LEVOTHYROXINE SODIUM 25 MCG TAB PO SCH (06:40)
[2017-09-04 06:46] LABS: BUN/Creatinine Ratio 39.3; Calcium 8.7 mg/dL (8.5-10.1); Potassium 3.7 mmol/L (3.5-5.1)
[2017-09-04 07:30] VITALS: BP 151/72
[2017-09-04 09:00] VITALS: BP 165/84
[2017-09-04] MEDS: cefTRIAXone 1GM/10ml IVPUSH 10 ML IV SCH (09:27)
[2017-09-04] MEDS: FAMOTIDINE 20 MG TAB PO SCH (09:28)
[2017-09-04] MEDS: ASPirin 81 mg TAB PO SCH (09:28)
[2017-09-04] MEDS: LISINOPRIL 10 MG TAB PO SCH (09:28)
[2017-09-04] MEDS: METOPROLOL TARTRATE 25 MG TAB PO SCH (09:29)
[2017-09-04] MEDS: ENOXAPARIN SOD 40 MG/0.4 ML SYRINGE SC SCH (09:30)
[2017-09-04] MEDS: FUROSEMIDE 40 MG TAB PO SCH (09:30)
[2017-09-04] MEDS: POTASSIUM CHL 10% (20 MEQ/15ML) 15ml ORAL SOLN PO SCH (10:00)
[2017-09-04] MEDS ORDERED: predniSONE 20 MG TAB PO SCH (10:00)
[2017-09-04] MEDS: FLUCONAZOLE 200MG/100ML 100 ML IV SCH (10:31)
[2017-09-04] MEDS: VANCOMYCIN 1GM/250ML 250 ML IV SCH (10:31)
[2017-09-04] MEDS ORDERED: FLEET MINERAL OIL ENEMA 133 ML PR ONE (11:15)
[2017-09-04 11:55] VITALS: BP 165/84
[2017-09-04 13:00] VITALS: BP 158/85
== END 2017-09-04 14:00 | DRG 870 ==
LOC: EDBD 09:43 → ER 09:43 → TELE 09:44 → TELE-CENTR 19:50 → DOU IN ICU 08-26 16:09 → ICU WEST 08-26 23:13 → TELE-WESTW 09-02 10:57
PROVIDERS: ADMIT Internal Medicine; ATTEND Family Medicine
PROC: 5A1955Z Respiratory Ventilation, Greater than 96 Consecutive Hours (ICD-10-PCS; principal; 2017-08-26)
PROC: 0BH17EZ Insertion of Endotracheal Airway into Trachea, Via Natural or Artificial Opening (ICD-10-PCS; 2017-08-26)
PROC: 5A09357 Assistance with Respiratory Ventilation, Less than 24 Consecutive Hours, Continuous Positive Airway Pressure (ICD-10-PCS; 2017-08-26)
DX: A41.9 Sepsis, unspecified organism (principal); J96.01 Acute respiratory failure with hypoxia; I50.43 Acute on chronic combined systolic (congestive) and diastolic (congestive) heart failure; J44.0 Chronic obstructive pulmonary disease with (acute) lower respiratory infection; J15.6 Pneumonia due to other Gram-negative bacteria; G93.40 Encephalopathy, unspecified; N17.9 Acute kidney failure, unspecified; E44.0 Moderate protein-calorie malnutrition; I13.0 Hypertensive heart and chronic kidney disease with heart failure and stage 1 through stage 4 chronic kidney disease, or unspecified chronic kidney disease; J44.1 Chronic obstructive pulmonary disease with (acute) exacerbation; E87.1 Hypo-osmolality and hyponatremia; N18.3 Chronic kidney disease, stage 3 (moderate); E11.21 Type 2 diabetes mellitus with diabetic nephropathy; F03.90 Unspecified dementia, unspecified severity, without behavioral disturbance, psychotic disturbance, mood disturbance, and anxiety; E66.01 Morbid (severe) obesity due to excess calories; E11.22 Type 2 diabetes mellitus with diabetic chronic kidney disease; E03.9 Hypothyroidism, unspecified; E78.5 Hyperlipidemia, unspecified; E83.51 Hypocalcemia; F17.210 Nicotine dependence, cigarettes, uncomplicated; J20.9 Acute bronchitis, unspecified; R55 Syncope and collapse; D72.829 Elevated white blood cell count, unspecified; M19.90 Unspecified osteoarthritis, unspecified site; F41.9 Anxiety disorder, unspecified; I25.10 Atherosclerotic heart disease of native coronary artery without angina pectoris; I25.2 Old myocardial infarction; Z82.49 Family history of ischemic heart disease and other diseases of the circulatory system; Z98.1 Arthrodesis status; Z90.710 Acquired absence of both cervix and uterus
CPT/HCPCS: 36415; 36600; 70450; 71045; 80048; 80053; 80202; 81001; 82805; 82962; 83036; 83605; 83735; 83880; 84443; 84484; 85007; 85025; 85027; 87040; 87070; 87076; 87081; 87086; 87205; 92610; 93005; 93306; 94002; 94003; 94640; 94644; 94660; 94761; 96365; 96366; 96375; 97163; J0330; J1450; J1956; J2250; J2704; J3010; J3490; J7060

== ENCOUNTER → 2018-06-17 | Outpatient (CLI) | payer OTHER ==
[~2018-06-17] MED LIST changes: -DULO30CA2 PO; -GABA100C9; -LEVA3NEB9 IN; -TIOTCAP IN
[2018-06-17 09:21] LABS: Basophils # (auto) 0.1 uL; Eosinophils # (auto) 0.3 uL; Eosinophils % (auto) 4.8 % (0.0-7.0); Hematocrit 41.8 % (36.0-46.0); Lymphocytes # (auto) 1.7 uL; Lymphocytes % (auto) 27.8 % (10.0-50.0); Mean Corpuscular Hgb Conc. 33.4 g/dL (32.0-36.0); Mean Corpuscular Volume 83.9 fL (80.0-100.0); Monocytes # (auto) 0.4 uL; Monocytes % (auto) 7.1 % (0.0-12.0); Neutrophils # (auto) 3.7 uL; Neutrophils % (auto) 59.3 % (37.0-80.0); Nucleated Red Blood Cells % 0.1 %; Platelet Count (auto) 243 10^3/uL (140-450); Red Blood Cells 4.98 10^6/uL (4.0-5.20); Red Cell Distribution Width 13.2 % (11.8-14.3); White Blood Cell 6.3 10^3/uL (4.4-10.8)
[2018-06-17 09:45] LABS: Albumin 4.1 g/dL (3.4-5.0); BUN/Creatinine Ratio 13.8; Calcium 9.7 mg/dL (8.5-10.1); Potassium 4.3 mmol/L (3.5-5.1)
[2018-06-17 09:48] LABS: Bilirubin, Total 1.2 mg/dL (0.2-1.0); Total Protein 8.1 g/dL (6.4-8.2)
== END | disposition home or self-care (01) ==
LOC: LAB 08:45
PROVIDERS: ATTEND Internal Medicine
DX: Z12.11 Encounter for screening for malignant neoplasm of colon (principal); I10 Essential (primary) hypertension; E78.5 Hyperlipidemia, unspecified; E03.9 Hypothyroidism, unspecified
CPT/HCPCS: 36415; 80053; 80061; 82306; 84443; 85025

== ENCOUNTER → 2018-07-22 | Outpatient (CLI) | payer MEDICARE, OTHER | END | disposition home or self-care (01) | LOC: XYW 08:55 | PROVIDERS: ATTEND Internal Medicine | DX: I27.23 Pulmonary hypertension due to lung diseases and hypoxia (principal); I70.0 Atherosclerosis of aorta | CPT/HCPCS: 93306 ==

== ENCOUNTER → 2019-02-18 | Outpatient (CLI) | payer OTHER ==
[2019-02-18 09:02] LABS: Basophils # (auto) 0.1 uL; Basophils % (auto) 1.3 % (0.0-2.0); Eosinophils # (auto) 0.4 uL; Eosinophils % (auto) 7.9 % (0.0-7.0); Hematocrit 41.1 % (36.0-46.0); Hemoglobin 13.6 g/dL (12.2-16.2); Lymphocytes # (auto) 1.4 uL; Lymphocytes % (auto) 27.3 % (10.0-50.0); Mean Corpuscular Hgb Conc. 33.1 g/dL (32.0-36.0); Mean Corpuscular Volume 84.6 fL (80.0-100.0); Monocytes # (auto) 0.5 uL; Monocytes % (auto) 8.8 % (0.0-12.0); Neutrophils # (auto) 2.8 uL; Neutrophils % (auto) 54.7 % (37.0-80.0); Platelet Count (auto) 195 10^3/uL (140-450); Red Blood Cells 4.87 10^6/uL (4.0-5.20); Red Cell Distribution Width 13.5 % (11.8-14.3); Urine Bacteria FEW /hpf (None Seen); Urine Blood Negative /uL (Negative); Urine Specific Gravity 1.006 (1.001-1.035); Urine WBC <1 /hpf (0 - 5); White Blood Cell 5.2 10^3/uL (4.4-10.8)
[2019-02-18 09:16] LABS: Albumin 3.9 g/dL (3.4-5.0); Calcium 9.8 mg/dL (8.5-10.1); Potassium 4.4 mmol/L (3.5-5.1)
[2019-02-18 09:23] LABS: BUN/Creatinine Ratio 13.7; Bilirubin, Total 0.9 mg/dL (0.2-1.0); Total Protein 7.5 g/dL (6.4-8.2)
== END | disposition home or self-care (01) ==
LOC: LAB 08:31
PROVIDERS: ATTEND Nurse Practitioner
DX: E78.5 Hyperlipidemia, unspecified (principal); J44.9 Chronic obstructive pulmonary disease, unspecified; I11.0 Hypertensive heart disease with heart failure; I50.43 Acute on chronic combined systolic (congestive) and diastolic (congestive) heart failure
CPT/HCPCS: 36415; 80053; 80061; 81001; 84443; 85025

== ENCOUNTER 2019-09-11 23:07 | Emergency (ER) | payer OTHER ==
[~2019-09-11] VITALS: Ht 160 cm; Wt 90.7 kg
[2019-09-11 23:58] LABS: Basophils # (auto) 0.1 uL; Basophils % (auto) 1.1 % (0.0-2.0); Eosinophils # (auto) 0.4 uL; Hematocrit 40.4 % (36.0-46.0); Hemoglobin 13.2 g/dL (12.2-16.2); Lymphocytes # (auto) 1.3 uL; Lymphocytes % (auto) 17.8 % (10.0-50.0); Mean Corpuscular Hemoglobin 27.8 pg (28.0-32.0); Mean Corpuscular Hgb Conc. 32.7 g/dL (32.0-36.0); Mean Corpuscular Volume 84.8 fL (80.0-100.0); Monocytes # (auto) 0.8 uL; Monocytes % (auto) 10.9 % (0.0-12.0); Neutrophils # (auto) 4.6 uL; Neutrophils % (auto) 65.2 % (37.0-80.0); Nucleated Red Blood Cells % 0.1 %; Platelet Count (auto) 194 10^3/uL (140-450); Red Blood Cells 4.76 10^6/uL (4.0-5.20); Red Cell Distribution Width 13.2 % (11.8-14.3); White Blood Cell 7.1 10^3/uL (4.4-10.8)
[2019-09-12 00:10] LABS: INR 0.96 (0.9-1.15); Partial Thromboplastin Time 27.6 sec (23.64-32.05)
[2019-09-12 00:13] LABS: Albumin 3.5 g/dL (3.4-5.0); Anion Gap 7 (5-15); BUN/Creatinine Ratio 13.7; Blood Urea Nitrogen 14 mg/dL (7-18); Calcium 8.8 mg/dL (8.5-10.1); Carbon Dioxide 30 mmol/L (21-32); Chloride 103 mmol/L (98-107); GFR African American 67 mL/min; GFR Non-African American 56 mL/min; Glucose 102 mg/dL (74-106); Magnesium 2.6 mg/dL (1.6-2.6); Potassium 3.6 mmol/L (3.5-5.1); Sodium 140 mmol/L (136-145)
[2019-09-12 00:18] LABS: Alanine Aminotransferase 17 U/L (13-56); Alkaline Phosphatase 193 U/L (45-117); Aspartate Aminotransferase 14 U/L (15-37); Bilirubin, Total 0.5 mg/dL (0.2-1.0); Total Protein 7.4 g/dL (6.4-8.2)
[2019-09-12] MEDS ORDERED: SODIUM CHLORIDE 0.9% 1,000 ML IV ONE (01:00)
[2019-09-12] MEDS ORDERED: ALBUTEROL SULF 2.5 MG/0.5ML(0.5%) NEB SOLN NEB ONE (01:00)
[2019-09-12] MEDS ORDERED: IPRATROPIUM BROM 0.5 MG/2.5ML INH SOL NEB ONE (01:00)
[2019-09-12] MEDS ORDERED: cefTRIAXone 1GM/50ML D5W 50 ML IV ONE (01:00)
[2019-09-12 01:11] LABS: Basophils # (auto) 0.1 uL; Basophils % (auto) 0.8 % (0.0-2.0); Eosinophils # (auto) 0.3 uL; Eosinophils % (auto) 4.8 % (0.0-7.0); Hematocrit 38.9 % (36.0-46.0); Hemoglobin 12.9 g/dL (12.2-16.2); Lymphocytes # (auto) 1.2 uL; Lymphocytes % (auto) 16.5 % (10.0-50.0); Mean Corpuscular Hemoglobin 28.1 pg (28.0-32.0); Mean Corpuscular Hgb Conc. 33.3 g/dL (32.0-36.0); Mean Corpuscular Volume 84.4 fL (80.0-100.0); Monocytes # (auto) 0.7 uL; Monocytes % (auto) 10.7 % (0.0-12.0); Neutrophils # (auto) 4.7 uL; Neutrophils % (auto) 67.2 % (37.0-80.0); Platelet Count (auto) 188 10^3/uL (140-450); Red Blood Cells 4.61 10^6/uL (4.0-5.20); Red Cell Distribution Width 13.1 % (11.8-14.3)
[2019-09-12 01:30] LABS: Albumin 3.5 g/dL (3.4-5.0); BUN/Creatinine Ratio 13.4; Calcium 8.8 mg/dL (8.5-10.1); Potassium 3.7 mmol/L (3.5-5.1)
[2019-09-12 01:33] LABS: Bilirubin, Total 0.5 mg/dL (0.2-1.0); Total Protein 7.3 g/dL (6.4-8.2)
[2019-09-12 06:11] VITALS: BP 122/49
== END 2019-09-12 08:13 | disposition home or self-care (01) ==
LOC: EDBD 23:07 → ER 23:09
DX: J20.9 Acute bronchitis, unspecified (principal); E11.9 Type 2 diabetes mellitus without complications; R53.1 Weakness; I13.0 Hypertensive heart and chronic kidney disease with heart failure and stage 1 through stage 4 chronic kidney disease, or unspecified chronic kidney disease; E11.22 Type 2 diabetes mellitus with diabetic chronic kidney disease; N18.9 Chronic kidney disease, unspecified; I50.9 Heart failure, unspecified; F17.210 Nicotine dependence, cigarettes, uncomplicated
CPT/HCPCS: 36415; 71045; 80053; 83735; 83880; 84484; 85025; 85610; 85730; 87804; 94640; 96365; 99284; J0696; J7611; J7644

== ENCOUNTER → 2019-10-11 | Outpatient (CLI) | payer OTHER ==
[~2019-10-11] MED LIST changes: +LACT10SO3 PO; -LEVO75TA6; +LEVO75TA6 PO
[2019-10-11 09:41] LABS: Basophils # (auto) 0.1 uL; Basophils % (auto) 1.1 % (0.0-2.0); Eosinophils # (auto) 0.3 uL; Eosinophils % (auto) 5.3 % (0.0-7.0); Hematocrit 40.3 % (36.0-46.0); Hemoglobin 13.7 g/dL (12.2-16.2); Lymphocytes # (auto) 1.5 uL; Lymphocytes % (auto) 23.9 % (10.0-50.0); Mean Corpuscular Hemoglobin 28.8 pg (28.0-32.0); Mean Corpuscular Volume 84.7 fL (80.0-100.0); Monocytes # (auto) 0.5 uL; Monocytes % (auto) 7.6 % (0.0-12.0); Neutrophils # (auto) 3.9 uL; Neutrophils % (auto) 62.1 % (37.0-80.0); Nucleated Red Blood Cells % 0.1 %; Platelet Count (auto) 187 10^3/uL (140-450); Red Blood Cells 4.76 10^6/uL (4.0-5.20); Red Cell Distribution Width 13.5 % (11.8-14.3); White Blood Cell 6.2 10^3/uL (4.4-10.8)
[2019-10-11 09:44] LABS: Urine Bacteria FEW /hpf (None Seen); Urine Blood Negative /uL (Negative); Urine Specific Gravity 1.014 (1.001-1.035); Urine WBC 2 /hpf (0 - 5)
[2019-10-11 10:08] LABS: Potassium 3.8 mmol/L (3.5-5.1)
[2019-10-11 10:24] LABS: Albumin 3.6 g/dL (3.4-5.0); BUN/Creatinine Ratio 12.1; Bilirubin, Total 0.8 mg/dL (0.2-1.0); Calcium 9.3 mg/dL (8.5-10.1); Total Protein 7.3 g/dL (6.4-8.2)
== END | disposition home or self-care (01) ==
LOC: LAB 08:23
PROVIDERS: ATTEND Nurse Practitioner
DX: Z00.00 Encounter for general adult medical examination without abnormal findings (principal); E78.5 Hyperlipidemia, unspecified
CPT/HCPCS: 36415; 80053; 80061; 81001; 84443; 85025

== ENCOUNTER 2019-10-14 13:44 | Inpatient (IN) | payer OTHER ==
[~2019-10-14] VITALS: Ht 160 cm; Wt 90.4 kg
[~2019-10-14 13:44] MED LIST changes: -LACT10SO3 PO
[2019-10-14] MEDS ORDERED: FUROSEMIDE 40 MG/4 ML VIAL IV ONE (14:45)
[2019-10-14] MEDS ORDERED: cefTRIAXone 1GM/50ML D5W 50 ML IV ONE (14:45)
[2019-10-14] MEDS ORDERED: AZITHROMYCIN 500MG/ 250ML 250 ML IV ONE (14:45)
[2019-10-14 17:04] LABS: Urine Bacteria NONE SEEN /hpf (None Seen); Urine Blood Negative /uL (Negative); Urine Mucus FEW (None Seen); Urine Specific Gravity 1.013 (1.001-1.035); Urine WBC 2 /hpf (0 - 5)
[2019-10-14 19:13] LABS: Albumin 3.9 g/dL (3.4-5.0); Anion Gap 4 (5-15); Blood Urea Nitrogen 11 mg/dL (7-18); Calcium 9.3 mg/dL (8.5-10.1); Carbon Dioxide 31 mmol/L (21-32); Chloride 99 mmol/L (98-107); Glucose 102 mg/dL (74-106); Potassium 4.1 mmol/L (3.5-5.1); Sodium 134 mmol/L (136-145)
[2019-10-14 19:14] LABS: Basophils # (auto) 0.1 uL; Basophils % (auto) 0.6 % (0.0-2.0); Eosinophils # (auto) 0.3 uL; Eosinophils % (auto) 2.5 % (0.0-7.0); Hematocrit 43.4 % (36.0-46.0); Hemoglobin 14.2 g/dL (12.2-16.2); Lymphocytes # (auto) 1.3 uL; Lymphocytes % (auto) 11.2 % (10.0-50.0); Mean Corpuscular Hgb Conc. 32.7 g/dL (32.0-36.0); Mean Corpuscular Volume 85.4 fL (80.0-100.0); Monocytes # (auto) 0.7 uL; Monocytes % (auto) 5.7 % (0.0-12.0); Neutrophils # (auto) 9.5 uL; Nucleated Red Blood Cells % 0.3 %; Platelet Count (auto) 198 10^3/uL (140-450); Red Blood Cells 5.08 10^6/uL (4.0-5.20); Red Cell Distribution Width 13.5 % (11.8-14.3); White Blood Cell 11.8 10^3/uL (4.4-10.8)
[2019-10-14 19:15] LABS: Alanine Aminotransferase 19 U/L (13-56); Aspartate Aminotransferase 14 U/L (15-37); BUN/Creatinine Ratio 11.8; GFR African American 75 mL/min; GFR Non-African American 62 mL/min
[2019-10-14 19:20] LABS: Alkaline Phosphatase 180 U/L (45-117); Total Protein 8.3 g/dL (6.4-8.2)
[2019-10-14 19:27] LABS: INR 0.95 (0.9-1.15); Partial Thromboplastin Time 28.2 sec (23.64-32.05)
[2019-10-14] MEDS ORDERED: MORPHINE SULF 15mg ER tab PO PRN (21:15)
[2019-10-14] MEDS ORDERED: DOCUSATE SOD 100 MG CAP PO PRN (21:15)
[2019-10-14] MEDS ORDERED: HYDROcodone-ACET 5/325MG TAB PO PRN (21:15)
[2019-10-14] MEDS ORDERED: ONDANSETRON HCL 4 MG/2 ML VIAL IV PRN (21:15)
[2019-10-14 21:25] VITALS: BP 109/85
[2019-10-14] MEDS: ATORVASTATIN 20 MG TAB PO SCH (22:19)
[2019-10-14] MEDS: IPRATROPIUM BROM 0.5 MG/2.5ML INH SOL NEB PRN (22:37)
[2019-10-15 00:17] VITALS: BP 109/63
[2019-10-15] MEDS ORDERED: LACT10SO3 PO (00:55)
[2019-10-15 05:39] VITALS: BP 103/63
[2019-10-15 07:22] LABS: Basophils # (auto) 0.1 uL; Basophils % (auto) 0.4 % (0.0-2.0); Eosinophils # (auto) 0 uL; Eosinophils % (auto) 0.2 % (0.0-7.0); Hematocrit 37.7 % (36.0-46.0); Hemoglobin 12.4 g/dL (12.2-16.2); Lymphocytes # (auto) 1.4 uL; Lymphocytes % (auto) 10.1 % (10.0-50.0); Mean Corpuscular Hemoglobin 27.9 pg (28.0-32.0); Mean Corpuscular Hgb Conc. 32.8 g/dL (32.0-36.0); Monocytes % (auto) 7.3 % (0.0-12.0); Neutrophils # (auto) 11.5 uL; Platelet Count (auto) 174 10^3/uL (140-450); Red Blood Cells 4.44 10^6/uL (4.0-5.20); Red Cell Distribution Width 13.5 % (11.8-14.3)
[2019-10-15 07:38] LABS: BUN/Creatinine Ratio 13.9; Calcium 8.6 mg/dL (8.5-10.1); Potassium 3.7 mmol/L (3.5-5.1)
[2019-10-15 08:03] VITALS: BP 102/63
[2019-10-15] MEDS: MORPHINE SULF 15mg ER tab PO PRN ×3 (08:23→20:09)
[2019-10-15] MEDS: cefTRIAXone 1GM/50ML D5W 50 ML IV SCH (09:53)
[2019-10-15] MEDS: ASPirin 81 mg TAB PO SCH (09:54)
[2019-10-15] MEDS ORDERED: FUROSEMIDE 20 MG TAB PO SCH (10:00)
[2019-10-15] MEDS ORDERED: LISINOPRIL 10 MG TAB PO SCH (10:00)
[2019-10-15] MEDS ORDERED: ATENOLOL 25 MG TAB PO SCH (10:00)
[2019-10-15] MEDS: AZITHROMYCIN 500MG/ 250ML 250 ML IV SCH (11:43)
[2019-10-15 12:12] VITALS: BP 100/45
[2019-10-15] MEDS ORDERED: SODIUM CHLORIDE 0.9% 1,000 ML IV ONE (13:15)
[2019-10-15] MEDS ORDERED: LACTULOSE 20Gm/30ML SOLN PO PRN (13:45)
[2019-10-15 16:44] VITALS: BP 97/49
[2019-10-15] MEDS ORDERED: FUROSEMIDE 40 MG/4 ML VIAL IV SCH (18:00)
[2019-10-15] MEDS ORDERED: FLEET ENEMA(ADULT) 135 ML PR ONE (18:15)
[2019-10-15] MEDS ORDERED: guaiFENesin-DM 100/10mg/5ml SYR PO PRN (19:00)
[2019-10-15] MEDS: ATORVASTATIN 20 MG TAB PO SCH (22:00)
[2019-10-15 22:17] VITALS: BP 100/46
[2019-10-16 05:05] VITALS: BP 132/66
[2019-10-16 07:53] VITALS: BP 131/59
[2019-10-16] MEDS: cefTRIAXone 1GM/50ML D5W 50 ML IV SCH (09:01)
[2019-10-16] MEDS: POTASSIUM CHL 20 Meq TABLET PO SCH (09:02)
[2019-10-16] MEDS: ACETAMINOPHEN 325 MG TAB PO PRN ×2 (09:02→20:42)
[2019-10-16] MEDS: ASPirin 81 mg TAB PO SCH (09:02)
[2019-10-16] MEDS: AZITHROMYCIN 500MG/ 250ML 250 ML IV SCH (10:00)
[2019-10-16 12:49] LABS: Albumin 2.8 g/dL (3.4-5.0); Calcium 8.5 mg/dL (8.5-10.1); Potassium 4.5 mmol/L (3.5-5.1)
[2019-10-16 12:53] LABS: Bilirubin, Total 0.9 mg/dL (0.2-1.0); Total Protein 7.1 g/dL (6.4-8.2)
[2019-10-16 13:00] VITALS: BP 130/55
[2019-10-16 14:34] LABS: Basophils # (auto) 0 uL; Basophils % (auto) 0.2 % (0.0-2.0); Eosinophils # (auto) 0 uL; Eosinophils % (auto) 0.2 % (0.0-7.0); Hematocrit 35.3 % (36.0-46.0); Hemoglobin 11.6 g/dL (12.2-16.2); Lymphocytes # (auto) 0.9 uL; Lymphocytes % (auto) 5.6 % (10.0-50.0); Mean Corpuscular Hemoglobin 28.3 pg (28.0-32.0); Mean Corpuscular Volume 85.8 fL (80.0-100.0); Monocytes # (auto) 1.4 uL; Monocytes % (auto) 8.8 % (0.0-12.0); Neutrophils # (auto) 13.7 uL; Neutrophils % (auto) 85.2 % (37.0-80.0); Platelet Count (auto) 168 10^3/uL (140-450); Red Blood Cells 4.12 10^6/uL (4.0-5.20); Red Cell Distribution Width 13.6 % (11.8-14.3); White Blood Cell 16.1 10^3/uL (4.4-10.8)
[2019-10-16] MEDS ORDERED: VANCOMYCIN PER PHARMACY 0 MG IV SCH (17:30)
[2019-10-16] MEDS: VANCOMYCIN 1GM/250ML 250 ML IV SCH (17:58)
[2019-10-16] MEDS ORDERED: PIPERACILLIN-TAZOB 3.375GM 100 ML IV SCH (18:00)
[2019-10-16] MEDS: PIPERACILLIN-TAZO 4.5GM 100 ML IV SCH (20:30)
[2019-10-16] MEDS: ATORVASTATIN 20 MG TAB PO SCH (20:42)
[2019-10-16 22:00] VITALS: BP 123/62
[2019-10-17] MEDS: PIPERACILLIN-TAZO 4.5GM 100 ML IV SCH ×2 (02:36→07:04)
[2019-10-17 05:00] VITALS: BP 144/64
[2019-10-17] MEDS: ACETAMINOPHEN 325 MG TAB PO PRN ×3 (05:36→23:12)
[2019-10-17 06:07] LABS: Hemoglobin 11.9 g/dL (12.2-16.2); Mean Corpuscular Hemoglobin 27.4 pg (28.0-32.0); Mean Corpuscular Hgb Conc. 32.1 g/dL (32.0-36.0); Mean Corpuscular Volume 85.4 fL (80.0-100.0); Platelet Count (auto) 174 10^3/uL (140-450); Red Blood Cells 4.33 10^6/uL (4.0-5.20); Red Cell Distribution Width 13.5 % (11.8-14.3); White Blood Cell 18.9 10^3/uL (4.4-10.8)
[2019-10-17 06:26] LABS: Band Neutrophils % (manual) 0; Basophils % (manual) 0 (0.0-2.0); Blast Cells 0; Eosinophils % (manual) 0 (0-7); Metamyelocytes % 0; Myelocytes % 0; Promyelocytes % 0; Reactive Lymphocytes 0
[2019-10-17 06:30] LABS: Calcium 8.7 mg/dL (8.5-10.1); Potassium 4.3 mmol/L (3.5-5.1)
[2019-10-17 06:35] LABS: BUN/Creatinine Ratio 23.3
[2019-10-17 08:22] LABS: Lymphocytes % (manual) 1 (10.0-50.0); Monocytes % (manual) 11 (0-12)
[2019-10-17 09:00] VITALS: BP 126/63
[2019-10-17] MEDS: POTASSIUM CHL 20 Meq TABLET PO SCH (12:40)
[2019-10-17] MEDS: ASPirin 81 mg TAB PO SCH (12:40)
[2019-10-17] MEDS: VANCOMYCIN 1GM/250ML 250 ML IV SCH (12:40)
[2019-10-17 13:00] VITALS: BP 123/69
[2019-10-17] MEDS: PIPERACILLIN-TAZOB 3.375GM 100 ML IV SCH ×2 (14:17→18:25)
[2019-10-17 17:00] VITALS: BP 121/63
[2019-10-17 17:01] LABS: INR 1.07 (0.9-1.15); Partial Thromboplastin Time 30.1 sec (23.64-32.05)
[2019-10-17 19:43] VITALS: BP 121/63
[2019-10-17] MEDS: ATORVASTATIN 20 MG TAB PO SCH (22:00)
[2019-10-18] MEDS: PIPERACILLIN-TAZOB 3.375GM 100 ML IV SCH ×4 (01:37→18:50)
[2019-10-18 05:00] VITALS: BP 141/64
[2019-10-18 05:42] LABS: Basophils # (auto) 0.1 uL; Basophils % (auto) 0.8 % (0.0-2.0); Eosinophils # (auto) 0 uL; Eosinophils % (auto) 0.3 % (0.0-7.0); Hematocrit 35.8 % (36.0-46.0); Hemoglobin 11.9 g/dL (12.2-16.2); Lymphocytes # (auto) 0.6 uL; Lymphocytes % (auto) 4.5 % (10.0-50.0); Mean Corpuscular Hemoglobin 28.3 pg (28.0-32.0); Mean Corpuscular Hgb Conc. 33.2 g/dL (32.0-36.0); Mean Corpuscular Volume 85.3 fL (80.0-100.0); Monocytes # (auto) 1.1 uL; Monocytes % (auto) 8.4 % (0.0-12.0); Neutrophils # (auto) 11.4 uL; Platelet Count (auto) 190 10^3/uL (140-450); Red Blood Cells 4.19 10^6/uL (4.0-5.20); Red Cell Distribution Width 13.1 % (11.8-14.3); White Blood Cell 13.3 10^3/uL (4.4-10.8)
[2019-10-18] MEDS: VANCOMYCIN 1GM/250ML 250 ML IV SCH (05:58)
[2019-10-18 06:02] LABS: Calcium 8.9 mg/dL (8.5-10.1); Potassium 3.9 mmol/L (3.5-5.1)
[2019-10-18 06:06] LABS: Albumin 2.6 g/dL (3.4-5.0); BUN/Creatinine Ratio 17.7; Bilirubin, Total 1.2 mg/dL (0.2-1.0); Total Protein 6.9 g/dL (6.4-8.2)
[2019-10-18 08:56] VITALS: BP 142/57
[2019-10-18] MEDS: POTASSIUM CHL 20 Meq TABLET PO SCH ×2 (10:00→23:19)
[2019-10-18] MEDS: ASPirin 81 mg TAB PO SCH (10:00)
[2019-10-18] MEDS: metroNIDAZOLE 500MG/100ML 100 ML IV SCH ×3 (11:21→23:36)
[2019-10-18 13:00] VITALS: BP 135/67
[2019-10-18 16:49] VITALS: BP 136/62
[2019-10-18 22:00] VITALS: BP 150/73
[2019-10-18] MEDS: ATORVASTATIN 20 MG TAB PO SCH (22:00)
[2019-10-19] VITALS (37 sets, daily range): BP systolic 91–158; BP diastolic 45–86
[2019-10-19] MEDS: ACETAMINOPHEN 325 MG TAB PO PRN (00:22)
[2019-10-19] MEDS: PIPERACILLIN-TAZOB 3.375GM 100 ML IV SCH ×2 (01:09→06:22)
[2019-10-19] MEDS: metroNIDAZOLE 500MG/100ML 100 ML IV SCH ×3 (05:00→22:19)
[2019-10-19 05:26] LABS: Basophils # (auto) 0.1 uL; Basophils % (auto) 0.9 % (0.0-2.0); Eosinophils # (auto) 0.1 uL; Eosinophils % (auto) 1.4 % (0.0-7.0); Hematocrit 34.7 % (36.0-46.0); Hemoglobin 11.4 g/dL (12.2-16.2); Lymphocytes # (auto) 0.9 uL; Lymphocytes % (auto) 9.7 % (10.0-50.0); Mean Corpuscular Hemoglobin 28.1 pg (28.0-32.0); Mean Corpuscular Hgb Conc. 32.8 g/dL (32.0-36.0); Mean Corpuscular Volume 85.6 fL (80.0-100.0); Monocytes # (auto) 0.8 uL; Monocytes % (auto) 9.3 % (0.0-12.0); Neutrophils # (auto) 7.2 uL; Neutrophils % (auto) 78.7 % (37.0-80.0); Platelet Count (auto) 204 10^3/uL (140-450); Red Blood Cells 4.06 10^6/uL (4.0-5.20); Red Cell Distribution Width 13.3 % (11.8-14.3); White Blood Cell 9.1 10^3/uL (4.4-10.8)
[2019-10-19 05:53] LABS: Albumin 2.5 g/dL (3.4-5.0); Calcium 8.7 mg/dL (8.5-10.1); Potassium 3.9 mmol/L (3.5-5.1)
[2019-10-19 05:58] LABS: BUN/Creatinine Ratio 16.5; Bilirubin, Total 0.8 mg/dL (0.2-1.0); Total Protein 6.7 g/dL (6.4-8.2)
[2019-10-19] MEDS ORDERED: POVIDONE IODINE 10 % TOPICAL OINT 30GM TOP ONE (07:47)
[2019-10-19] MEDS ORDERED: SUCCINYLCHOLINE CHLORIDE 20 MG/ML 10ML VIAL IV ONE (07:47)
[2019-10-19] MEDS ORDERED: HYDROmorphone HCL 2 MG/ML VL ONE ×2 (07:49→08:26)
[2019-10-19] MEDS ORDERED: fentaNYL CITRATE 100 MCG/2 ML VL ONE (07:49)
[2019-10-19] MEDS ORDERED: MIDAZOLAM HCL 1MG/1ML-2 ML VIAL ONE ×2 (07:49→08:27)
[2019-10-19] MEDS ORDERED: ROCURONIUM 10MG/ML 10ML VIAL IV ONE ×2 (07:49→08:54)
[2019-10-19] MEDS ORDERED: PHENYLEPHRINE HCL 10 MG/ML VL ONE (08:37)
[2019-10-19] MEDS ORDERED: ETOMIDATE (2MG/ML) 20ML VIAL IV ONE (08:54)
[2019-10-19] MEDS ORDERED: HYDROmorphone HCL 2 MG/ML VL IV PRN (09:00)
[2019-10-19] MEDS ORDERED: LABETALOL HCL 5 MG/ML 4ML SYRINGE IV PRN (09:00)
[2019-10-19] MEDS ORDERED: MORPHINE SULF INJ 2 MG/ML SYRINGE 1ML IV PRN ×2 (09:00→09:15)
[2019-10-19] MEDS ORDERED: fentaNYL CITRATE 100 MCG/2 ML VL IV PRN (09:00)
[2019-10-19] MEDS ORDERED: ACCU-CHEK COMFORT CURVE STRIP VI ONE (09:00)
[2019-10-19] MEDS ORDERED: ePHEDrine SULFATE 50 MG/ML AMP IV PRN (09:00)
[2019-10-19] MEDS ORDERED: MIDAZOLAM HCL 1MG/1ML-2 ML VIAL IV PRN (09:00)
[2019-10-19] MEDS ORDERED: MIDAZOLAM DRIP 50 mg/50mL 50 ML IV ONE (09:11)
[2019-10-19] MEDS ORDERED: NITROGLYCERIN 0.4 MG SL TAB SL PRN (09:15)
[2019-10-19] MEDS: ASPirin 81 mg TAB PO SCH (10:00)
[2019-10-19 10:59] LABS: Albumin 1.9 g/dL (3.4-5.0); Calcium 8.1 mg/dL (8.5-10.1)
[2019-10-19 11:03] LABS: Bilirubin, Total 1.3 mg/dL (0.2-1.0); Total Protein 5.6 g/dL (6.4-8.2)
[2019-10-19 11:12] LABS: Basophils # (auto) 0.1 uL; Basophils % (auto) 1.1 % (0.0-2.0); Eosinophils # (auto) 0.1 uL; Eosinophils % (auto) 1.7 % (0.0-7.0); Hematocrit 32.4 % (36.0-46.0); Hemoglobin 10.5 g/dL (12.2-16.2); Lymphocytes # (auto) 0.8 uL; Lymphocytes % (auto) 10.7 % (10.0-50.0); Mean Corpuscular Hemoglobin 27.6 pg (28.0-32.0); Mean Corpuscular Hgb Conc. 32.4 g/dL (32.0-36.0); Mean Corpuscular Volume 85.1 fL (80.0-100.0); Monocytes # (auto) 0.6 uL; Monocytes % (auto) 8.1 % (0.0-12.0); Neutrophils # (auto) 5.8 uL; Neutrophils % (auto) 78.4 % (37.0-80.0); Platelet Count (auto) 182 10^3/uL (140-450); Red Cell Distribution Width 13.2 % (11.8-14.3); White Blood Cell 7.4 10^3/uL (4.4-10.8)
[2019-10-19 11:33] LABS: Potassium 3.9 mmol/L (3.5-5.1)
[2019-10-19] MEDS ORDERED: PANTOPRAZOLE 40 MG/10 ML VIAL INJ IV ONE (13:45)
[2019-10-19] MEDS ORDERED: SODIUM CHLORIDE 0.9% 1,000 ML IV SCH (13:45)
[2019-10-19] MEDS: MIDAZOLAM DRIP 50 mg/50mL 50 ML IV SCH ×2 (14:28→22:20)
[2019-10-19] MEDS: ceFAZolin 1GM/50ML 50 ML IV SCH ×2 (14:46→22:20)
[2019-10-19] MEDS: D5W/SOD CHL 0.45%/KCL 20MEQ 1,000 ML IV SCH ×2 (14:49→19:15)
[2019-10-19] MEDS ORDERED: PHENYLEPHRINE IV 0 ML IV ONE (15:49)
[2019-10-19] MEDS ORDERED: PHENYLEPHRINE IV 250 ML IV ONE (16:28)
[2019-10-19] MEDS: PHENYLEPHRINE INJ 20 MG in SODIUM CHL 0.9% 250 ML IV SCH (17:20)
[2019-10-19] MEDS: HYDROmorphone HCL 2 MG/ML VL IV PRN (17:20)
[2019-10-19] MEDS: fentaNYL Drip 2500mCg/250mlNS 250 ML IV SCH (21:12)
[2019-10-19] MEDS: ATORVASTATIN 20 MG TAB PO SCH (22:00)
[2019-10-20] VITALS (101 sets, daily range): BP systolic 84–174; BP diastolic 31–81
[2019-10-20] MEDS: D5W/SOD CHL 0.45%/KCL 20MEQ 1,000 ML IV SCH ×2 (01:58→12:08)
[2019-10-20] MEDS ORDERED: PHENYLEPHRINE IV 250 ML IV ONE (03:59)
[2019-10-20] MEDS: PHENYLEPHRINE INJ 20 MG in SODIUM CHL 0.9% 250 ML IV SCH ×3 (04:05→16:45)
[2019-10-20 05:26] LABS: Basophils # (auto) 0.1 uL; Basophils % (auto) 0.7 % (0.0-2.0); Eosinophils # (auto) 0.1 uL; Eosinophils % (auto) 1.7 % (0.0-7.0); Hematocrit 27.6 % (36.0-46.0); Hemoglobin 9.3 g/dL (12.2-16.2); Lymphocytes # (auto) 1.1 uL; Lymphocytes % (auto) 12.9 % (10.0-50.0); Mean Corpuscular Hemoglobin 28.3 pg (28.0-32.0); Mean Corpuscular Hgb Conc. 33.6 g/dL (32.0-36.0); Mean Corpuscular Volume 84.3 fL (80.0-100.0); Monocytes # (auto) 0.8 uL; Monocytes % (auto) 9.5 % (0.0-12.0); Neutrophils # (auto) 6.4 uL; Neutrophils % (auto) 75.2 % (37.0-80.0); Platelet Count (auto) 213 10^3/uL (140-450); Red Blood Cells 3.27 10^6/uL (4.0-5.20); Red Cell Distribution Width 13.3 % (11.8-14.3); White Blood Cell 8.5 10^3/uL (4.4-10.8)
[2019-10-20] MEDS: ceFAZolin 1GM/50ML 50 ML IV SCH ×3 (05:43→22:06)
[2019-10-20] MEDS: metroNIDAZOLE 500MG/100ML 100 ML IV SCH ×3 (05:43→22:06)
[2019-10-20 05:51] LABS: Potassium 3.5 mmol/L (3.5-5.1)
[2019-10-20 06:00] LABS: Albumin 1.9 g/dL (3.4-5.0); BUN/Creatinine Ratio 19.3; Bilirubin, Total 0.5 mg/dL (0.2-1.0); Calcium 7.9 mg/dL (8.5-10.1); Total Protein 5.3 g/dL (6.4-8.2)
[2019-10-20] MEDS ORDERED: FUROSEMIDE 40 MG/4 ML VIAL IV ONE ×2 (09:15→18:30)
[2019-10-20] MEDS: POTASSIUM EFFERVESENT TAB 25 MEQ PO SCH (10:12)
[2019-10-20] MEDS: ASPirin 81 mg TAB PO SCH (10:12)
[2019-10-20] MEDS: PANTOPRAZOLE 40 MG/10 ML VIAL INJ IV SCH (10:12)
[2019-10-20] MEDS: IPRATROPIUM BROM 0.5 MG/2.5ML INH SOL NEB PRN (10:39)
[2019-10-20] MEDS: HYDROmorphone HCL 2 MG/ML VL IV PRN ×3 (16:45→23:52)
[2019-10-20] MEDS: fentaNYL Drip 2500mCg/250mlNS 250 ML IV SCH (20:04)
[2019-10-20] MEDS: ATORVASTATIN 20 MG TAB PO SCH (22:06)
[2019-10-21] VITALS (26 sets, daily range): BP systolic 108–187; BP diastolic 51–81
[2019-10-21] MEDS ORDERED: FUROSEMIDE 40 MG/4 ML VIAL IV SCH (06:00)
[2019-10-21] MEDS: metroNIDAZOLE 500MG/100ML 100 ML IV SCH ×3 (06:05→22:00)
[2019-10-21] MEDS: PHENYLEPHRINE INJ 20 MG in SODIUM CHL 0.9% 250 ML IV SCH ×2 (06:06→09:25)
[2019-10-21] MEDS: ceFAZolin 1GM/50ML 50 ML IV SCH ×3 (06:06→21:30)
[2019-10-21] MEDS: D5W/SOD CHL 0.45%/KCL 20MEQ 1,000 ML IV SCH ×3 (06:06→21:15)
[2019-10-21] MEDS: MIDAZOLAM DRIP 50 mg/50mL 50 ML IV SCH (09:01)
[2019-10-21] MEDS: ASPirin 81 mg TAB PO SCH (10:00)
[2019-10-21] MEDS: SERTRALINE HCL 50 MG TAB PO SCH (10:00)
[2019-10-21] MEDS: PANTOPRAZOLE 40 MG/10 ML VIAL INJ IV SCH (10:48)
[2019-10-21] MEDS: POTASSIUM EFFERVESENT TAB 25 MEQ PO SCH (11:13)
[2019-10-21] MEDS ORDERED: LORazepam 2MG/ML-1ML VIAL IV PRN (14:15)
[2019-10-21] MEDS: ATORVASTATIN 20 MG TAB PO SCH (21:30)
[2019-10-21] MEDS: HYDROmorphone HCL 2 MG/ML VL IV PRN (23:48)
[2019-10-22] VITALS: BP 120/54
[2019-10-22 04:00] VITALS: BP 119/56
[2019-10-22] MEDS: D5W/SOD CHL 0.45%/KCL 20MEQ 1,000 ML IV SCH ×2 (04:40→17:48)
[2019-10-22] MEDS: metroNIDAZOLE 500MG/100ML 100 ML IV SCH ×3 (05:52→22:27)
[2019-10-22] MEDS: ceFAZolin 1GM/50ML 50 ML IV SCH ×3 (06:00→22:27)
[2019-10-22 06:13] LABS: BUN/Creatinine Ratio 9.7; Calcium 8.7 mg/dL (8.5-10.1)
[2019-10-22 07:40] VITALS: BP 114/66
[2019-10-22] MEDS: PANTOPRAZOLE 40 MG/10 ML VIAL INJ IV SCH (11:01)
[2019-10-22] MEDS: FUROSEMIDE 40 MG/4 ML VIAL IV SCH (11:02)
[2019-10-22] MEDS: POTASSIUM EFFERVESENT TAB 25 MEQ PO SCH (11:02)
[2019-10-22] MEDS: ASPirin 81 mg TAB PO SCH (11:03)
[2019-10-22] MEDS: SERTRALINE HCL 50 MG TAB PO SCH (11:04)
[2019-10-22 11:50] VITALS: BP 134/79
[2019-10-22] MEDS: IPRATROPIUM BROM 0.5 MG/2.5ML INH SOL NEB PRN ×2 (15:58→23:49)
[2019-10-22 17:00] VITALS: BP 160/75
[2019-10-22] MEDS: HYDROmorphone HCL 2 MG/ML VL IV PRN (21:02)
[2019-10-22 22:00] VITALS: BP 144/72
[2019-10-22] MEDS: ATORVASTATIN 20 MG TAB PO SCH (22:27)
[2019-10-23] MEDS: D5W/SOD CHL 0.45%/KCL 20MEQ 1,000 ML IV SCH ×3 (03:15→23:15)
[2019-10-23] MEDS: HYDROmorphone HCL 2 MG/ML VL IV PRN ×2 (04:27→21:00)
[2019-10-23] MEDS: metroNIDAZOLE 500MG/100ML 100 ML IV SCH ×3 (05:34→21:35)
[2019-10-23] MEDS: ceFAZolin 1GM/50ML 50 ML IV SCH ×3 (05:34→21:36)
[2019-10-23 05:36] VITALS: BP 145/76
[2019-10-23 06:43] LABS: Calcium 8.8 mg/dL (8.5-10.1); Potassium 3.7 mmol/L (3.5-5.1)
[2019-10-23 06:47] LABS: BUN/Creatinine Ratio 8.2
[2019-10-23 08:00] VITALS: BP 160/79
[2019-10-23] MEDS: IPRATROPIUM BROM 0.5 MG/2.5ML INH SOL NEB PRN ×2 (09:20→16:47)
[2019-10-23] MEDS: PANTOPRAZOLE 40 MG/10 ML VIAL INJ IV SCH (09:57)
[2019-10-23] MEDS: ASPirin 81 mg TAB PO SCH (09:58)
[2019-10-23] MEDS: POTASSIUM EFFERVESENT TAB 25 MEQ PO SCH (09:58)
[2019-10-23] MEDS: SERTRALINE HCL 50 MG TAB PO SCH (09:58)
[2019-10-23] MEDS: FUROSEMIDE 40 MG/4 ML VIAL IV SCH (09:58)
[2019-10-23 12:00] VITALS: BP 144/74
[2019-10-23 16:46] VITALS: BP 149/81
[2019-10-23] MEDS: ATORVASTATIN 20 MG TAB PO SCH (21:36)
[2019-10-23 22:00] VITALS: BP 154/89
[2019-10-23] MEDS: ACETAMINOPHEN 325 MG TAB PO PRN (23:56)
[2019-10-24] MEDS: HYDROmorphone HCL 2 MG/ML VL IV PRN ×3 (00:42→13:06)
[2019-10-24 03:10] VITALS: BP 154/89
[2019-10-24 05:27] VITALS: BP 158/80
[2019-10-24] MEDS: metroNIDAZOLE 500MG/100ML 100 ML IV SCH ×2 (06:31→14:00)
[2019-10-24] MEDS: ceFAZolin 1GM/50ML 50 ML IV SCH ×2 (06:31→14:00)
[2019-10-24 08:40] LABS: Folate (Folic Acid) 17.36 ng/mL (5.38-24)
[2019-10-24 09:00] VITALS: BP 143/62
[2019-10-24] MEDS: D5W/SOD CHL 0.45%/KCL 20MEQ 1,000 ML IV SCH (09:16)
[2019-10-24] MEDS: POTASSIUM EFFERVESENT TAB 25 MEQ PO SCH (09:45)
[2019-10-24] MEDS: ASPirin 81 mg TAB PO SCH (09:45)
[2019-10-24] MEDS: PANTOPRAZOLE 40 MG/10 ML VIAL INJ IV SCH (09:45)
[2019-10-24] MEDS: SERTRALINE HCL 50 MG TAB PO SCH (09:46)
[2019-10-24] MEDS ORDERED: POTASSIUM CHL 20 Meq TABLET PO ONE (10:45)
[2019-10-24 13:00] VITALS: BP 173/78
[2019-10-24 17:00] VITALS: BP 192/80
== END 2019-10-24 17:00 | disposition home or self-care (01) | DRG 853 ==
LOC: EDBD 13:44 → ER 13:51 → TELE 13:52 → TELE-WESTW 23:28 → ICU WEST 10-19 12:48 → DOU IN ICU 10-21 15:17 → WEST WING 10-22 14:28
PROVIDERS: ADMIT Hospitalist; ATTEND Family Medicine
PROC: 0BH17EZ Insertion of Endotracheal Airway into Trachea, Via Natural or Artificial Opening (ICD-10-PCS; 2019-10-19)
PROC: 5A1935Z Respiratory Ventilation, Less than 24 Consecutive Hours (ICD-10-PCS; 2019-10-19)
PROC: 0FT44ZZ Resection of Gallbladder, Percutaneous Endoscopic Approach (ICD-10-PCS; principal; 2019-10-19 07:55)
DX: A41.9 Sepsis, unspecified organism (principal); I50.43 Acute on chronic combined systolic (congestive) and diastolic (congestive) heart failure; J96.20 Acute and chronic respiratory failure, unspecified whether with hypoxia or hypercapnia; G93.41 Metabolic encephalopathy; J96.00 Acute respiratory failure, unspecified whether with hypoxia or hypercapnia; J18.9 Pneumonia, unspecified organism; Q24.4 Congenital subaortic stenosis; J44.1 Chronic obstructive pulmonary disease with (acute) exacerbation; F05 Delirium due to known physiological condition; N17.9 Acute kidney failure, unspecified; I13.0 Hypertensive heart and chronic kidney disease with heart failure and stage 1 through stage 4 chronic kidney disease, or unspecified chronic kidney disease; K80.00 Calculus of gallbladder with acute cholecystitis without obstruction; E03.9 Hypothyroidism, unspecified; K82.8 Other specified diseases of gallbladder; F41.9 Anxiety disorder, unspecified; M19.90 Unspecified osteoarthritis, unspecified site; I25.10 Atherosclerotic heart disease of native coronary artery without angina pectoris; E11.22 Type 2 diabetes mellitus with diabetic chronic kidney disease; E78.5 Hyperlipidemia, unspecified; F03.90 Unspecified dementia, unspecified severity, without behavioral disturbance, psychotic disturbance, mood disturbance, and anxiety; F32.9 Major depressive disorder, single episode, unspecified; N18.3 Chronic kidney disease, stage 3 (moderate); E66.9 Obesity, unspecified; M54.5 Low back pain; E66.01 Morbid (severe) obesity due to excess calories; G89.29 Other chronic pain; R34 Anuria and oliguria; I95.81 Postprocedural hypotension; I25.2 Old myocardial infarction; Z79.82 Long term (current) use of aspirin; Z68.35 Body mass index [BMI] 35.0-35.9, adult; Z90.710 Acquired absence of both cervix and uterus; Z90.49 Acquired absence of other specified parts of digestive tract; Z82.49 Family history of ischemic heart disease and other diseases of the circulatory system; Z87.891 Personal history of nicotine dependence; Z79.51 Long term (current) use of inhaled steroids; Z79.899 Other long term (current) drug therapy
CPT/HCPCS: 36415; 36600; 70450; 71045; 74176; 76705; 80048; 80053; 81001; 82140; 82607; 82746; 82805; 82962; 83036; 83605; 83880; 84484; 85007; 85025; 85027; 85610; 85730; 86850; 86900; 86901; 87040; 87070; 87081; 87086; 87205; 87804; 93005; 93306; 94002; 94003; 94640; 97116; 97530; A4565; C9113; G0378; J0330; J0690; J0696; J2250; J2543; J3490

== ENCOUNTER → 2020-02-15 | Outpatient (CLI) | payer OTHER ==
[~2020-02-15] MED LIST changes: +LACT10SO3 PO; -LEVO200I5 IV
[2020-02-15 08:46] LABS: Basophils # (auto) 0.1 10 ^3/uL (0-0.2); Basophils % (auto) 1.2 % (0.0-2.0); Eosinophils # (auto) 0.4 10 ^3/uL (0-0.8); Eosinophils % (auto) 6.5 % (0.0-7.0); Hematocrit 42.2 % (36.0-46.0); Hemoglobin 13.8 g/dL (12.2-16.2); Lymphocytes # (auto) 1.4 10 ^3/uL (0.4-5.4); Lymphocytes % (auto) 26.8 % (10.0-50.0); Mean Corpuscular Hemoglobin 27.3 pg (28.0-32.0); Mean Corpuscular Hgb Conc. 32.8 g/dL (32.0-36.0); Mean Corpuscular Volume 83.1 fL (80.0-100.0); Monocytes # (auto) 0.4 10 ^3/uL (0-1.3); Monocytes % (auto) 6.9 % (0.0-12.0); Neutrophils # (auto) 3.2 10 ^3/uL (1.6-8.6); Neutrophils % (auto) 58.6 % (37.0-80.0); Nucleated Red Blood Cells % 0.1 %; Platelet Count (auto) 213 10^3/uL (140-450); Red Blood Cells 5.08 10^6/uL (4.0-5.20); Red Cell Distribution Width 13.9 % (11.8-14.3); White Blood Cell 5.4 10^3/uL (4.4-10.8)
[2020-02-15 08:58] LABS: Urine Bacteria FEW /hpf (None Seen); Urine Blood Negative /uL (Negative); Urine Mucus FEW (None Seen); Urine Specific Gravity 1.022 (1.001-1.035); Urine WBC 3 /hpf (0 - 5)
[2020-02-15 09:02] LABS: INR 0.96 (0.9-1.15); Partial Thromboplastin Time 27.3 sec (23.64-32.05)
[2020-02-15 09:15] LABS: Albumin 3.7 g/dL (3.4-5.0); Calcium 9.1 mg/dL (8.5-10.1); Potassium 3.9 mmol/L (3.5-5.1)
[2020-02-15 09:17] LABS: BUN/Creatinine Ratio 14.5; Bilirubin, Total 0.7 mg/dL (0.2-1.0); Total Protein 7.5 g/dL (6.4-8.2)
== END | disposition home or self-care (01) ==
LOC: LAB 08:20
PROVIDERS: ATTEND Nurse Practitioner
DX: Z01.818 Encounter for other preprocedural examination (principal)
CPT/HCPCS: 36415; 80053; 81001; 85025; 85610; 85730

== ENCOUNTER → 2020-03-07 | Outpatient (CLI) | payer OTHER ==
[2020-03-07 09:20] LABS: Urine Blood Negative /uL (Negative); Urine Specific Gravity 1.005 (1.001-1.035)
[2020-03-07 09:21] LABS: Basophils # (auto) 0.1 10 ^3/uL (0-0.2); Basophils % (auto) 1.1 % (0.0-2.0); Eosinophils # (auto) 0.4 10 ^3/uL (0-0.8); Eosinophils % (auto) 6.6 % (0.0-7.0); Hematocrit 42.2 % (36.0-46.0); Hemoglobin 13.6 g/dL (12.2-16.2); Lymphocytes # (auto) 1.5 10 ^3/uL (0.4-5.4); Lymphocytes % (auto) 24.2 % (10.0-50.0); Mean Corpuscular Hgb Conc. 32.3 g/dL (32.0-36.0); Mean Corpuscular Volume 83.7 fL (80.0-100.0); Monocytes # (auto) 0.5 10 ^3/uL (0-1.3); Monocytes % (auto) 7.6 % (0.0-12.0); Neutrophils # (auto) 3.7 10 ^3/uL (1.6-8.6); Neutrophils % (auto) 60.5 % (37.0-80.0); Nucleated Red Blood Cells % 0.1 %; Platelet Count (auto) 210 10^3/uL (140-450); Red Blood Cells 5.04 10^6/uL (4.0-5.20); Red Cell Distribution Width 14.5 % (11.8-14.3); White Blood Cell 6.1 10^3/uL (4.4-10.8)
[2020-03-07 09:44] LABS: Potassium 4.5 mmol/L (3.5-5.1)
[2020-03-07 09:55] LABS: Albumin 3.8 g/dL (3.4-5.0); BUN/Creatinine Ratio 17.9; Bilirubin, Total 0.8 mg/dL (0.2-1.0); Calcium 9.5 mg/dL (8.5-10.1); Total Protein 7.8 g/dL (6.4-8.2)
[2020-03-07 10:21] LABS: INR 0.95 (0.9-1.15); Partial Thromboplastin Time 27.9 sec (23.64-32.05)
== END | disposition home or self-care (01) ==
LOC: LAB 08:49
PROVIDERS: ATTEND Specialist
DX: Z01.82 Encounter for allergy testing (principal); H25.11 Age-related nuclear cataract, right eye; D68.311 Acquired hemophilia; Z79.01 Long term (current) use of anticoagulants
CPT/HCPCS: 36415; 80053; 81003; 85025; 85610; 85730

== ENCOUNTER → 2021-04-04 | Outpatient (CLI) | payer OTHER ==
[2021-04-04 08:37] LABS: Basophils # (auto) 0.1 10 ^3/uL (0-0.2); Basophils % (auto) 1.3 % (0.0-2.0); Eosinophils # (auto) 0.5 10 ^3/uL (0-0.8); Eosinophils % (auto) 8.5 % (0.0-7.0); Hematocrit 39.2 % (36.0-46.0); Hemoglobin 13.2 g/dL (12.2-16.2); Lymphocytes # (auto) 1.8 10 ^3/uL (0.4-5.4); Lymphocytes % (auto) 29.4 % (10.0-50.0); Mean Corpuscular Hemoglobin 27.6 pg (28.0-32.0); Mean Corpuscular Hgb Conc. 33.7 g/dL (32.0-36.0); Mean Corpuscular Volume 81.8 fL (80.0-100.0); Monocytes # (auto) 0.4 10 ^3/uL (0-1.3); Monocytes % (auto) 7.1 % (0.0-12.0); Neutrophils # (auto) 3.2 10 ^3/uL (1.6-8.6); Neutrophils % (auto) 53.7 % (37.0-80.0); Red Blood Cells 4.79 10^6/uL (4.0-5.20); Red Cell Distribution Width 13.8 % (11.8-14.3)
[2021-04-04 08:47] LABS: Albumin 3.5 g/dL (3.4-5.0); Calcium 9.2 mg/dL (8.5-10.1); Potassium 4.5 mmol/L (3.5-5.1)
[2021-04-04 08:54] LABS: BUN/Creatinine Ratio 13.3; Bilirubin, Total 0.9 mg/dL (0.2-1.0); Total Protein 7.8 g/dL (6.4-8.2)
[2021-04-04 14:10] LABS: Urine Bacteria FEW /hpf (None Seen); Urine Blood Negative /uL (Negative); Urine Specific Gravity 1.007 (1.001-1.035); Urine WBC 1 /hpf (0 - 5)
== END | disposition home or self-care (01) ==
LOC: LAB 07:46
PROVIDERS: ATTEND Nurse Practitioner
DX: I10 Essential (primary) hypertension (principal); E78.5 Hyperlipidemia, unspecified
CPT/HCPCS: 36415; 80053; 80061; 81001; 84443; 85025

== ENCOUNTER 2021-09-05 06:38 | Emergency (ER) | payer OTHER ==
[~2021-09-05] VITALS: Ht 160 cm; Wt 88.5 kg
[2021-09-05 09:06] LABS: Basophils # (auto) 0 10 ^3/uL (0-0.2); Basophils % (auto) 0.4 % (0.0-2.0); Eosinophils # (auto) 0.2 10 ^3/uL (0-0.8); Eosinophils % (auto) 5.2 % (0.0-7.0); Hematocrit 39.7 % (36.0-46.0); Hemoglobin 13.1 g/dL (12.2-16.2); Lymphocytes # (auto) 0.8 10 ^3/uL (0.4-5.4); Lymphocytes % (auto) 19.9 % (10.0-50.0); Mean Corpuscular Hemoglobin 27.3 pg (28.0-32.0); Mean Corpuscular Hgb Conc. 33.1 g/dL (32.0-36.0); Mean Corpuscular Volume 82.7 fL (80.0-100.0); Monocytes # (auto) 0.4 10 ^3/uL (0-1.3); Monocytes % (auto) 9.7 % (0.0-12.0); Neutrophils # (auto) 2.6 10 ^3/uL (1.6-8.6); Neutrophils % (auto) 64.8 % (37.0-80.0); Red Cell Distribution Width 14.2 % (11.8-14.3)
[2021-09-05 09:26] LABS: INR 0.99 (0.9-1.15); Partial Thromboplastin Time 28.2 sec (23.6-33.0)
[2021-09-05 09:47] LABS: Albumin 3.6 g/dL (3.4-5.0); BUN/Creatinine Ratio 16.1; Bilirubin, Total 0.8 mg/dL (0.2-1.0); Calcium 8.7 mg/dL (8.5-10.1); Magnesium 2.5 mg/dL (1.6-2.6); Total Protein 7.5 g/dL (6.4-8.2)
[2021-09-05 11:47] LABS: Urine Bacteria FEW /hpf (None Seen); Urine Blood Negative /uL (Negative); Urine WBC 1 /hpf (0 - 5)
[2021-09-05] MEDS ORDERED: IOHEXOL 350 MG/ML 100ML IJ ONE (15:20)
[2021-09-05 15:30] VITALS: BP 134/71
[2021-09-05] MEDS ORDERED: LEVO-28 PO (16:52)
== END 2021-09-05 16:05 | disposition home or self-care (01) ==
LOC: ER 06:38 → EDSEX 06:38 → EDBD 06:38 → ER 16:05
DX: J18.9 Pneumonia, unspecified organism (principal); R42 Dizziness and giddiness; I10 Essential (primary) hypertension; E78.5 Hyperlipidemia, unspecified; I25.2 Old myocardial infarction; Z90.710 Acquired absence of both cervix and uterus; Z90.89 Acquired absence of other organs; Z79.899 Other long term (current) drug therapy; Z88.8 Allergy status to other drugs, medicaments and biological substances; Z20.822 Contact with and (suspected) exposure to COVID-19
CPT/HCPCS: 36415; 70450; 71045; 71275; 80053; 81001; 83735; 83880; 84484; 85025; 85379; 85610; 85730; 87426; 93005; 99285; Q9967

== ENCOUNTER 2022-03-31 00:30 | Inpatient (IN) | payer OTHER ==
[~2022-03-31] VITALS: Ht 157.5 cm; Wt 90.9 kg
[~2022-03-31 00:30] MED LIST changes: +ACYC-166 PO; +CEPH-509 PO; +LEVO-28 PO
[2022-03-31 01:18] LABS: Basophils # (auto) 0.1 10 ^3/uL (0-0.2); Basophils % (auto) 1.3 % (0.0-2.0); Eosinophils # (auto) 0.5 10 ^3/uL (0-0.8); Eosinophils % (auto) 9.5 % (0.0-7.0); Hematocrit 37.6 % (36.0-46.0); Hemoglobin 12.4 g/dL (12.2-16.2); Lymphocytes # (auto) 1.4 10 ^3/uL (0.4-5.4); Mean Corpuscular Hemoglobin 27.5 pg (28.0-32.0); Mean Corpuscular Volume 83.4 fL (80.0-100.0); Monocytes # (auto) 0.5 10 ^3/uL (0-1.3); Monocytes % (auto) 10.4 % (0.0-12.0); Neutrophils # (auto) 2.6 10 ^3/uL (1.6-8.6); Neutrophils % (auto) 50.8 % (37.0-80.0); Red Blood Cells 4.51 10^6/uL (4.0-5.20); Red Cell Distribution Width 13.6 % (11.8-14.3); White Blood Cell 5.1 10^3/uL (4.4-10.8)
[2022-03-31 01:20] LABS: INR 0.93 (0.9-1.15); Partial Thromboplastin Time 28.1 sec (24.6-33.4)
[2022-03-31 01:25] LABS: Albumin 3.5 g/dL (3.4-5.0); Calcium 8.9 mg/dL (8.5-10.1); Magnesium 2.8 mg/dL (1.6-2.6); Potassium 4.1 mmol/L (3.5-5.1)
[2022-03-31 01:30] LABS: Bilirubin, Total 0.5 mg/dL (0.2-1.0); Total Protein 7.2 g/dL (6.4-8.2)
[2022-03-31] MEDS: IPRATROPIUM BROM 0.5 MG/2.5ML INH SOL NEB ONE ×2 (02:27→03:01)
[2022-03-31] MEDS ORDERED: ALBUTEROL SULF 2.5 MG/0.5ML(0.5%) NEB SOLN NEB ONE (02:30)
[2022-03-31] MEDS ORDERED: MAGNESIUM SULFATE 1GM/100ML 100 ML IV ONE (02:30)
[2022-03-31] MEDS ORDERED: DexAMETHasone SOD PHOS 10MG/1ML VIAL INJ IV ONE (02:30)
[2022-03-31 03:05] LABS: Urine Bacteria FEW /hpf (None Seen); Urine Blood Negative /uL (Negative); Urine Hyaline Cast FEW /lpf (0 - 2); Urine Specific Gravity 1.016 (1.001-1.035); Urine WBC 5 /hpf (0 - 5)
[2022-03-31] MEDS ORDERED: LEVALBUTEROL HCL 1.25 MG/3 ML NEB NEB SCH (06:00)
[2022-03-31] MEDS ORDERED: ACETAMINOPHEN 500 MG TAB PO PRN (11:15)
[2022-03-31] MEDS ORDERED: AZITHROMYCIN 500MG/ 250ML 250 ML IV ONE (11:15)
[2022-03-31] MEDS ORDERED: cefTRIAXone 1GM/50ML D5W 50 ML IV ONE (11:15)
[2022-03-31] MEDS ORDERED: MORPHINE SULFATE INJ 2 MG/ml SYRG IV PRN (11:15)
[2022-03-31] MEDS ORDERED: NITROGLYCERIN 0.4 MG SL TAB SL PRN (11:15)
[2022-03-31 13:00] LABS: CRP High Sensitivity 0.5 mg/dL (< 0.3); Magnesium 2.8 mg/dL (1.6-2.6)
[2022-03-31 13:03] LABS: Lactic Acid w/Reflex 3.2 mmol/L (0.4-2.0)
[2022-03-31 13:10] LABS: Thyroid Stimulating Hormone 2.27 uIU/mL (0.358-3.74)
[2022-03-31 21:04] VITALS: BP 134/74
[2022-03-31 22:00] VITALS: BP 161/72
[2022-03-31] MEDS ORDERED: ALBUTEROL SULF HFA 90MCG INH 200DOSE IN SCH (22:00)
[2022-03-31] MEDS: ENOXAPARIN SOD 40 MG/0.4 ML SYRINGE SC SCH (22:36)
[2022-03-31] MEDS: BUDESONIDE (INHALATION) 180 MCG IH IN SCH (22:38)
[2022-03-31] MEDS ORDERED: traMADol HCL 50 MG TAB PO ONE (23:00)
[2022-04-01] VITALS (7 sets, daily range): BP systolic 131–172; BP diastolic 58–76
[2022-04-01 05:56] LABS: Basophils # (auto) 0 10 ^3/uL (0-0.2); Eosinophils # (auto) 0 10 ^3/uL (0-0.8); Eosinophils % (auto) 0.3 % (0.0-7.0); Hemoglobin 11.7 g/dL (12.2-16.2); Lymphocytes # (auto) 1.3 10 ^3/uL (0.4-5.4); Neutrophils # (auto) 3.5 10 ^3/uL (1.6-8.6)
[2022-04-01 05:58] LABS: Basophils % (auto) 0.4 % (0.0-2.0); Lymphocytes % (auto) 23.9 % (10.0-50.0); Mean Corpuscular Hgb Conc. 31.7 g/dL (32.0-36.0); Mean Corpuscular Volume 85.1 fL (80.0-100.0); Monocytes # (auto) 0.5 10 ^3/uL (0-1.3); Neutrophils % (auto) 66.4 % (37.0-80.0); Nucleated Red Blood Cells % 0.1 %; Red Blood Cells 4.35 10^6/uL (4.0-5.20); Red Cell Distribution Width 13.3 % (11.8-14.3); White Blood Cell 5.3 10^3/uL (4.4-10.8)
[2022-04-01 06:16] LABS: Albumin 3.3 g/dL (3.4-5.0); Potassium 4.5 mmol/L (3.5-5.1)
[2022-04-01 06:22] LABS: BUN/Creatinine Ratio 28.1; Bilirubin, Total 0.5 mg/dL (0.2-1.0); Total Protein 6.9 g/dL (6.4-8.2)
[2022-04-01] MEDS: BUDESONIDE (INHALATION) 180 MCG IH IN SCH ×2 (06:58→22:58)
[2022-04-01] MEDS: ASCORBIC ACID 1,000 MG TAB PO SCH (08:44)
[2022-04-01] MEDS: CHOLECALCIFEROL (VITD3) 2,000 UNIT CAP/TAB PO SCH (08:44)
[2022-04-01] MEDS: cefTRIAXone 1GM/50ML D5W 50 ML IV SCH (08:44)
[2022-04-01] MEDS: DexAMETHasone SOD PHOS 10MG/1ML VIAL INJ IV SCH (08:45)
[2022-04-01] MEDS ORDERED: AZITHROMYCIN 500MG/ 250ML 250 ML IV SCH (10:00)
[2022-04-01] MEDS ORDERED: ZINC220C10 PO (10:29)
[2022-04-01] MEDS ORDERED: AZITTAB PO (10:29)
[2022-04-01] MEDS ORDERED: METH4PAK PO (10:29)
[2022-04-01] MEDS ORDERED: LACTULOSE 20Gm/30ML SOLN PO ONE (10:30)
[2022-04-01] MEDS ORDERED: ATENOLOL 25 MG TAB PO ONE ×2 (10:30→13:45)
[2022-04-01] MEDS ORDERED: LISINOPRIL 10 MG TAB PO ONE (10:30)
[2022-04-01] MEDS: AZITHROMYCIN 500MG/ 250ML 250 ML IV SCH (10:38)
[2022-04-01] MEDS: ZINC SULFATE 220mg CAP or TAB PO SCH (10:42)
[2022-04-01] MEDS: ENOXAPARIN SOD 40 MG/0.4 ML SYRINGE SC SCH ×2 (13:39→21:17)
[2022-04-01] MEDS: MUPIROCIN 2% OINT 15gm or 22gm FOR MRSA NARES EACHNOSTRI SCH (21:45)
[2022-04-02 05:00] VITALS: BP 134/53
[2022-04-02] MEDS: BUDESONIDE (INHALATION) 180 MCG IH IN SCH (07:46)
[2022-04-02 09:00] VITALS: BP 137/68
[2022-04-02] MEDS: ZINC SULFATE 220mg CAP or TAB PO SCH (09:00)
[2022-04-02] MEDS: cefTRIAXone 1GM/50ML D5W 50 ML IV SCH (09:00)
[2022-04-02] MEDS: MUPIROCIN 2% OINT 15gm or 22gm FOR MRSA NARES EACHNOSTRI SCH (09:00)
[2022-04-02] MEDS: ENOXAPARIN SOD 40 MG/0.4 ML SYRINGE SC SCH (09:01)
[2022-04-02] MEDS: CHOLECALCIFEROL (VITD3) 2,000 UNIT CAP/TAB PO SCH (09:01)
[2022-04-02] MEDS: ASCORBIC ACID 1,000 MG TAB PO SCH (09:01)
[2022-04-02] MEDS: DexAMETHasone SOD PHOS 10MG/1ML VIAL INJ IV SCH (09:51)
[2022-04-02] MEDS: AZITHROMYCIN 500MG/ 250ML 250 ML IV SCH (09:52)
[2022-04-02 13:00] VITALS: BP 157/77
[2022-04-02 16:19] VITALS: BP 141/61
[2022-04-02] MEDS ORDERED: DOXYCYCLINE 100 MG TAB/CAP PO SCH (22:00)
== END 2022-04-02 22:40 | DRG 178 ==
LOC: EDUNIT# 00:30 → ER 00:30 → EDBD 00:30 → TELE 11:22 → TELE-CENTR 21:15 → CENTRAL 04-01 23:26
PROVIDERS: ADMIT Registered Nurse; ATTEND Internal Medicine Nephrology
DX: U07.1 COVID-19 (principal); J44.1 Chronic obstructive pulmonary disease with (acute) exacerbation; N39.0 Urinary tract infection, site not specified; E03.9 Hypothyroidism, unspecified; E66.01 Morbid (severe) obesity due to excess calories; E78.5 Hyperlipidemia, unspecified; I12.9 Hypertensive chronic kidney disease with stage 1 through stage 4 chronic kidney disease, or unspecified chronic kidney disease; I25.10 Atherosclerotic heart disease of native coronary artery without angina pectoris; M41.9 Scoliosis, unspecified; N18.2 Chronic kidney disease, stage 2 (mild); Z86.16 Personal history of COVID-19; Z82.49 Family history of ischemic heart disease and other diseases of the circulatory system; Z87.891 Personal history of nicotine dependence; Z90.710 Acquired absence of both cervix and uterus; Z68.36 Body mass index [BMI] 36.0-36.9, adult
CPT/HCPCS: 36415; 71045; 80053; 80061; 81001; 82306; 82728; 83036; 83605; 83615; 83735; 83880; 84443; 84484; 85025; 85379; 85610; 85730; 86141; 87040; 87081; 87086; 93005; 94640; 96365; 96367; 96375; G0378; J0696; J1100

== ENCOUNTER → 2023-04-07 | Outpatient (CLI) | payer OTHER ==
[~2023-04-07] MED LIST changes: -ACYC-166 PO; +ACYC1TAB3 PO; +AZITTAB PO; -CEPH-509 PO; -LEVO-28 PO; +METH4PAK PO; -SIMV-8 PO; +SIMV20TA20 PO; +ZINC220C10 PO
[2023-04-07 07:50] LABS: Basophils # (auto) 0.1 10 ^3/uL (0-0.2); Basophils % (auto) 1.2 % (0.0-2.0); Eosinophils # (auto) 0.4 10 ^3/uL (0-0.8); Eosinophils % (auto) 7.7 % (0.0-7.0); Hematocrit 41.3 % (36.0-46.0); Hemoglobin 13.5 g/dL (12.2-16.2); Lymphocytes # (auto) 1.5 10 ^3/uL (0.4-5.4); Mean Corpuscular Hemoglobin 27.8 pg (28.0-32.0); Mean Corpuscular Hgb Conc. 32.7 g/dL (32.0-36.0); Monocytes # (auto) 0.4 10 ^3/uL (0-1.3); Monocytes % (auto) 7.1 % (0.0-12.0); Neutrophils # (auto) 3.2 10 ^3/uL (1.6-8.6); Nucleated Red Blood Cells % 0.1 %; Red Blood Cells 4.87 10^6/uL (4.0-5.20); Red Cell Distribution Width 13.5 % (11.8-14.3); White Blood Cell 5.6 10^3/uL (4.4-10.8)
[2023-04-07 08:25] LABS: Urine Bacteria FEW /hpf (None Seen); Urine Blood Negative /uL (Negative); Urine Clarity HAZY (Clear); Urine Color Yellow (Yellow); Urine Protein, UAD TRACE (Negative); Urine Specific Gravity 1.014 (1.001-1.035); Urine Urobilinogen Normal (Negative); Urine WBC 8 /hpf (0 - 5)
[2023-04-07 08:42] LABS: Albumin 3.7 g/dL (3.4-5.0); Potassium 4.2 mmol/L (3.5-5.1)
[2023-04-07 08:50] LABS: Bilirubin, Total 1.2 mg/dL (0.2-1.0); Calcium 9.1 mg/dL (8.5-10.1); Total Protein 7.7 g/dL (6.4-8.2)
== END | disposition home or self-care (01) ==
LOC: LAB 07:30
PROVIDERS: ATTEND Nurse Practitioner
DX: I10 Essential (primary) hypertension (principal); E78.5 Hyperlipidemia, unspecified; R73.9 Hyperglycemia, unspecified
CPT/HCPCS: 36415; 80053; 80061; 81001; 83036; 84443; 85025

== ENCOUNTER → 2024-06-30 | Outpatient (CLI) | payer OTHER ==
[2024-06-30 08:27] LABS: Basophils # (auto) 0.1 10 ^3/uL (0-0.2); Basophils % (auto) 1.4 % (0.0-2.0); Eosinophils # (auto) 0.3 10 ^3/uL (0-0.8); Eosinophils % (auto) 6.3 % (0.0-7.0); Hematocrit 43.6 % (36.0-46.0); Lymphocytes # (auto) 1.3 10 ^3/uL (0.4-5.4); Lymphocytes % (auto) 23.4 % (10.0-50.0); Mean Corpuscular Hemoglobin 27.3 pg (28.0-32.0); Mean Corpuscular Hgb Conc. 32.2 g/dL (32.0-36.0); Mean Corpuscular Volume 84.7 fL (80.0-100.0); Monocytes # (auto) 0.4 10 ^3/uL (0-1.3); Monocytes % (auto) 8.2 % (0.0-12.0); Neutrophils # (auto) 3.3 10 ^3/uL (1.6-8.6); Neutrophils % (auto) 60.7 % (37.0-80.0); Platelet Count (auto) 197 10^3/uL (140-450); Red Blood Cells 5.14 10^6/uL (4.0-5.20); Red Cell Distribution Width 14.7 % (11.8-14.3); White Blood Cell 5.4 10^3/uL (4.4-10.8)
[2024-06-30 08:42] LABS: Urine Bacteria MOD /hpf (None Seen); Urine Blood Negative /uL (Negative); Urine Clarity Ex.Turbid (Clear); Urine Color Light-Orange (Yellow); Urine Mucus FEW (None Seen); Urine Protein, UAD 1+ (Negative); Urine Specific Gravity 1.019 (1.001-1.035); Urine Urobilinogen 2 mg/dL (Negative); Urine WBC 21 /hpf (0 - 5); Urine WBC Clumps PRESENT /hpf (None Seen); Urine pH 7.5 (5.0-9.0)
[2024-06-30 09:04] LABS: Alanine Aminotransferase 14 U/L (7-40); Albumin 4.4 g/dL (3.2-4.8); Alkaline Phosphatase 192 U/L (46-116); Anion Gap 4 (5-15); Aspartate Aminotransferase 13 U/L (13-40); BUN/Creatinine Ratio 14.4 (10.0-20.0); Blood Urea Nitrogen 14 mg/dL (9-23); Carbon Dioxide 33 mmol/L (20-31); Chloride 104 mmol/L (98-107); Cholesterol 163 mg/dL (< 200); Glucose 103 mg/dL (74-106); HDL Cholesterol 50 mg/dL (40-59); LDL Cholesterol 84 mg/dL (< 100); Potassium 4.5 mmol/L (3.5-5.1); Sodium 141 mmol/L (136-145); Triglycerides 152 mg/dL (< 150)
[2024-06-30 09:05] LABS: Bilirubin, Total 0.9 mg/dL (0.2-1.0); Total Protein 7.3 g/dL (5.7-8.2)
== END | disposition home or self-care (01) ==
LOC: LAB 07:57
PROVIDERS: ATTEND Nurse Practitioner
DX: E78.5 Hyperlipidemia, unspecified (principal); I10 Essential (primary) hypertension; E03.9 Hypothyroidism, unspecified
CPT/HCPCS: 36415; 80053; 80061; 81001; 83036; 84443; 85025

== ENCOUNTER 2024-07-14 13:06 | Inpatient (IN) | payer OTHER ==
[~2024-07-14] VITALS: Ht 160 cm; Wt 95.8 kg
--- NOTE | 2024-07-14 13:33 | ED.PDOC ---
SOB-HPI HPI Comments 83y F who presents to the ED via EMS for chief complaint of shortness of breath. EMS states pt lives in assisted care and states pt has been having cold and flu- like symptoms for the past 2 days. Pt states she has been having rhinorrhea, fever, cough, chills and yellow/clear phlegm. Pt states today, she started to have chest tightness and called EMS. Pt states she often gets these symptoms around this time of year and in the past was diagnosed with pneumonia. EMS states pt has stable vitals in the ED, with noted 02 sat of 94% on room air and no noted respiratory distress. Pt otherwise has noted stable vitals and pt denies any other symptoms at this time. Chief Complaint: Shortness of Breath Time Seen by MD: 13:30 Primary Care Provider: Timothy Mark notes: Medications Information Source: Patient, Emergency Med Personnel Mode of Arrival: EMS Brought in by: EMS Past Medical History PAST MEDICAL HISTORY: CAD, COPD, High Lipids, HTN, MO, Thyroid Surgical History: Hysterectomy, Tonsillectomy PLASTERER STUCCO History: No Pertinent PLASTERER STUCCO History Family History Family History: Family hx of heart claire, Family hx of HTN Social History Smoker: Quit Less Than 1 Year Alcohol: Rarely Drugs: Denies Drug Use Lives In: Assisted Care Constitutional: reports: chills, fatigue, fever; denies: diaphoresis, malaise, sweats, weakness, others EENTM: denies: blurred vision, double vision, ear bleeding, ear discharge, ear drainage, ear pain, ear ringing, eye pain, eye redness, hearing loss, mouth pain, mouth swelling, nasal discharge, nose bleeding, nose congestion, nose pain, photophobia, tearing, throat pain, throat swelling, voice changes, others Respiratory: reports: cough; denies: hemoptysis, orthopnea, SOB at rest, shortness of breath, SOB with excertion, stridor, wheezing, others Cardiovascular: denies: chest pain, dizzy spells, diaphoresis, Dyspnea on exertion, edema, irregular heart beat, left arm pain, lightheadedness, palpitations, PND, syncope, others Gastrointestinal: denies: abdomen distended, abdominal pain, blood streaked bowels, constipated, diarrhea, dysphagia, difficulty swallowing, hematemesis, melena, nausea, poor appetite, poor fluid intake, rectal bleeding, rectal pain, vomiting, others Genitourinary: denies: abnormal vagina bleeding, burning, dyspareunia, dysuria, flank pain, frequency, hematuria, incontinence, pain, , vagina discharge, urgency, others Neurological: denies: dizziness, fainting, headache, left sided numbness, left sided weakness, numbness, paresthesia, pre-existing deficit, right sided numb ness, right sided weakness, seizure, speech problems, tingling, tremors, weakness, others Musculoskeletal: denies: back pain, gout, joint pain, joint swelling, muscle pain, muscle stiffness, neck pain, others Integumetry: denies: bruises, change in color, change in hair/nails, dryness, laceration, lesions, lumps, rash, wounds, others Allergic/Immunocompromised: denies: Difficulty Healing, Frequent Infections, Hives, Itching, others Hematologic/Lymphatic: denies: anemia, blood clots, easy bleeding, easy bruising, swollen glands, others Endocrine: denies: excessive hunger, excessive sweating, excessive thirst, excessive urination, flushing, intolerance to cold, intolerance to heat, unexplained weight gain, unexplained weight loss, others Psychiatric: denies: anxiety, bipolar disorder, depression, hopeless, panic disorder, schizophrenia, sleepless, suicidal, others All Other Systems: Reviewed and Negative Physical Exam General Appearance: No Apparent Distress, Normal HEENT: Normal ENT Inspection, Pharynx Normal, TMs Normal Neck: Full Range of Motion, Non-Tender, Normal, Normal Inspection Respiratory: Chest Non-Tender, Lungs Clear, No Accessory Muscle Use, No Respiratory Distress, Normal Breath Sounds Cardiovascular: No Edema, No JVD, No Murmur, No Gallop, Normal Peripheral Pulses, Regular Rate/Rhythm Breast Exam: Deferred Gastrointestinal: No Organomegaly, Non Tender, No Pulsatile Mass, Normal Bowel Sounds, Soft Genitalia: Deferred Pelvic: Deferred Rectal: Deferred Extremities: No calf tenderness, Normal capillary refill, Normal inspection, Normal range of motion, Non-tender, No pedal edema Musculoskeletal : Apperance: Normal Neurologic: Alert, tile erector II-XII nml as Tested, No Motor Deficits, Normal Affect, Normal Mood, No Sensory Deficits Cerebellar Function: NOT DONE Reflexes: NOT DONE Skin: Dry, Normal Color, Warm Lymphatic: No Adenopathy Was a procedure done? Was a procedure done?: No Differential Dx Differential Diagnosis: Bronchitis, CHF, COPD, Pneumonia, Pulmonary Embolism, Respiratory Distress, URI Comments Influenza A and B, COVID X-Ray, Labs, Meds, VS Vital Signs Date Time Temp Pulse Resp B/P (MAP) Pulse Ox O2 Delivery O2 Flow Rate FiO2 07/14/24 13:24 99.5 97 20 142/80 (100) 94 Lab Test 07/14/24 15:32 07/14/24 14:00 07/14/24 13:25 Range/Units Troponin I High Sensitivity Pending 13 </=34 ng/L White Blood Count 9.2 4.4-10.8 10^3/uL Red Blood Count 5.11 4.0-5.20 10^6/uL Hemoglobin 14.5 12.2-16.2 g/dL Hematocrit 43.1 36.0-46.0 % Mean Corpuscular Volume 84.3 80.0-100.0 fL Mean Corpuscular Hemoglobin 28.4 28.0-32.0 pg Mean Corpuscular Hemoglobin Concent 33.7 32.0-36.0 g/dL Red Cell Distribution Width 14.5 H 11.8-14.3 % Platelet Count 190 140-450 10^3/uL Mean Platelet Volume 9.0 6.9-10.8 fL Neutrophils (%) (Auto) 77.5 37.0-80.0 % Lymphocytes (%) (Auto) 8.9 L 10.0-50.0 % Monocytes (%) (Auto) 10.6 0.0-12.0 % Eosinophils (%) (Auto) 2.1 0.0-7.0 % Basophils (%) (Auto) 0.9 0.0-2.0 % Neutrophils # (Auto) 7.1 1.6-8.6 10 ^3/uL Lymphocytes # (Auto) 0.8 0.4-5.4 10 ^3/uL Monocytes # (Auto) 1.0 0-1.3 10 ^3/uL Eosinophils # (Auto) 0.2 0-0.8 10 ^3/uL Basophils # (Auto) 0.1 0-0.2 10 ^3/uL Nucleated Red Blood Cells 0.0 % Sodium Level 139 136-145 mmol/L Potassium Level 4.3 3.5-5.1 mmol/L Chloride Level 101 98-107 mmol/L Carbon Dioxide Level 32 H 20-31 mmol/L Anion Gap 6 5-15 Blood Urea Nitrogen 23 9-23 mg/dL Creatinine 1.08 H 0.550-1.02 mg/dL Glomerular Filtration Rate Calc 51 >90 mL/min BUN/Creatinine Ratio 21.3 H 10.0-20.0 Serum Glucose 87 74-106 mg/dL Lactic Acid Level 1.7 0.4-2.0 mmol/L Calcium Level 10.1 8.7-10.4 mg/dL Urine Color Light-yellow Yellow Urine Clarity Clear Clear Urine pH 7.0 5.0-9.0 Urine Specific [place] 1.012 1.001-1.035 Urine Protein Negative Negative Urine Ketones Negative Negative Urine Blood Negative Negative /uL Urine Nitrite Negative Negative Urine Bilirubin Negative Negative Urine Urobilinogen Normal Negative mg/dL Urine Leukocyte Esterase Negative Negative /uL Urine RBC 3 0 - 4 /hpf Urine WBC <1 0 - 5 /hpf Urine Squamous Epithelial Cells Few <5 /hpf Urine Bacteria None seen None Seen /hpf Urine Glucose Normal Normal mg/dL [place] [id number] Ph: [phone] DIAGNOSTIC IMAGING Diagnostic Imaging Report : [id number] Signed PATIENT: GARRETT MONTEMAYOR MACCT: [id number] UNIT: [id number] : 1940 LOC: ER ROOM / BED: / AGE / SEX: 83 / F ADM STATUS: REG ER SERVICE 1323 ORDERING PHYSICIAN: WILFREDO DONNELLY MD PROCEDURE(s): CXRP - CHEST PORTABLE REASON: sob ORDER NUMBER(s): [id number], ACCESSION NUMBER(s): [id number] EXAM: XY CHEST PORTABLE TECHNIQUE: Single frontal chest radiograph CLINICAL HISTORY: sob COMPARISON: CHEST PORTABLE on DOS: 03/31/22, CHEST PORTABLE on DOS: 09/05/21, CHEST PORTABLE on DOS: 10/21/19 Findings/Impression: Frontal chest radiograph demonstrates no acute osseous or superficial soft tissue abnormalities. Marked S shaped curvature of the thoracolumbar spine. The trachea is midline. The cardiac silhouette and mediastinum are within normal limits. No pneumothorax, pleural effusions, or consolidations. ATED BY: VAL DOMINGUEZ DO DICTATED DATE/TIME: 07/14/241401 SIGNED BY: VAL DOMINGUEZ DO SIGNED DATE/TIME: 07/14/241401 CC: Time of 1ST Reevaluation: 14:00 Reevaluation 1ST: Unchanged Patient Education/Counseling: Diagnosis, Treatment Family Education/Counseling: No Family Present Departure 1 Departure Time of Disposition: 16:16 (Patient presented with chest pain that was concerning for possible STEMI, ACS, PE, Pneumonia, Muscle Strain, COPD, Dissection. Data: 1. I ordered and reviewed the result of at least 3 labs including a CBC, BMP, and Troponin. 2. I independently interpreted the following tests: EKG which shows block and Chest X-ray which shows vascular congestion.Risk:This patient has a high risk of morbidity due to further diagnostic testing or treatment and may suffer from an acute cardiac or respiratory disorder. Workup reveals concern for viral syndrome versus acute on chronic CHF exacerbation and patient should be admitted for further workup and possible expert consultation. ) Impression: Primary Impression: Shortness of breath Additional Impression: Acute chest pain Disposition: ADMITTED INPATIENT Admit to: Med Surg Condition: Serious Critical Care Note Critical Care Time?: Yes Critical care comment: Acute chest pain Authorized and Performed by: Wilfredo Donnelly MD Total critical care time: Approximately 38 minutes Due to a high probability of clinically significant, life threatening deterioration, the patient required my highest level of preparedness to intervene emergently and I personally spent this critical care time directly and personally managing the patient. This critical care time included obtaining a history; examining the patient; pulse oximetry; ordering and review of studies; arranging urgent treatment with development of a management plan; evaluation of patient's response to treatment; frequent reassessment; and, discussions with other providers. This critical care time was performed to assess and manage the high probability of imminent, life-threatening deterioration that could result in multi-organ failure. It was exclusive of separately billable procedures and treating other patients and teaching time. Please see my other sections and the rest of the note for further information on patient assessment and treatment. Stability Stability form required: No Heart Score Heart Score: Heart Score Response (Comments) Value History N/A 0 EKG N/A 0 Age N/A 0 Risk Factors N/A 0 Troponin N/A 0 Total 0 I personally scribed for WILFREDO DONNELLY MD ([email or web address]) on 07/14/24 at 13:32. Electronically submitted by Rosa Saleh ([facility]). I personally scribed for WILFREDO DONNELLY MD ([facility]) on 07/14/24 at 14:17. Electronically submitted by Rosa Saleh ([facility]). WILFREDO DONNELLY MD Jul 14, 2024 13:32
[2024-07-14 13:51] LABS: Urine Bacteria None Seen /hpf (None Seen)
[2024-07-14 14:02] LABS: Urine Blood Negative /uL (Negative); Urine Clarity Clear (Clear); Urine Color Light-Yellow (Yellow); Urine Protein, UAD Negative (Negative); Urine Specific Gravity 1.012 (1.001-1.035); Urine Urobilinogen Normal (Negative); Urine WBC <1 /hpf (0 - 5)
--- NOTE | 2024-07-14 14:04 | DVH ---
EXAM: XY CHEST PORTABLE TECHNIQUE: Single frontal chest radiograph CLINICAL HISTORY: sob COMPARISON: CHEST PORTABLE on DOS: 03/31/22, CHEST PORTABLE on DOS: 09/05/21, CHEST PORTABLE on DOS: 09/25 04/12 Findings/Impression: Frontal chest radiograph demonstrates no acute osseous or superficial soft tissue abnormalities. Wayne ed S shaped curvature of the thoracolumbar spine. The trachea is midline. The cardiac silhouette and mediastinum are within normal limits. No pneumothorax, pleural effusions, or consolidations.
[2024-07-14 14:26] LABS: Chloride 101 mmol/L (98-107); Potassium 4.3 mmol/L (3.5-5.1); Sodium 139 mmol/L (136-145)
[2024-07-14 14:27] LABS: Anion Gap 6 (5-15); Basophils # (auto) 0.1 10 ^3/uL (0-0.2); Basophils % (auto) 0.9 % (0.0-2.0); Calcium 10.1 mg/dL (8.7-10.4); Carbon Dioxide 32 mmol/L (20-31); Eosinophils # (auto) 0.2 10 ^3/uL (0-0.8); Eosinophils % (auto) 2.1 % (0.0-7.0); Hematocrit 43.1 % (36.0-46.0); Hemoglobin 14.5 g/dL (12.2-16.2); Lymphocytes # (auto) 0.8 10 ^3/uL (0.4-5.4); Lymphocytes % (auto) 8.9 % (10.0-50.0); Mean Corpuscular Hemoglobin 28.4 pg (28.0-32.0); Mean Corpuscular Hgb Conc. 33.7 g/dL (32.0-36.0); Mean Corpuscular Volume 84.3 fL (80.0-100.0); Monocytes % (auto) 10.6 % (0.0-12.0); Neutrophils # (auto) 7.1 10 ^3/uL (1.6-8.6); Neutrophils % (auto) 77.5 % (37.0-80.0); Platelet Count (auto) 190 10^3/uL (140-450); Red Blood Cells 5.11 10^6/uL (4.0-5.20); Red Cell Distribution Width 14.5 % (11.8-14.3); White Blood Cell 9.2 10^3/uL (4.4-10.8)
[2024-07-14 14:32] LABS: BUN/Creatinine Ratio 21.3 (10.0-20.0); Blood Urea Nitrogen 23 mg/dL (9-23); Glucose 87 mg/dL (74-106)
--- NOTE | 2024-07-14 19:10 | ECG ---
[facility] Test Date: 2024-07-14 Test Time: 13:10:09 Pat Name: GARRETT MONTEMAYOR Department: ED Room: 0233T Gender: F Automatic Presser: EDUARDO : 1940 Requested By: WILFREDO DONNELLY Order Number: [id number] Reading MD: Sammy Swift Measurements Intervals [place] Rate: 100 P: 179 ND: 206 QRS: -37 QRSD: 112 T: 117 QT: 364 QTc: 470 Interpretive Statements Sinus or ectopic atrial tachycardia LVH with IVCD, LAD and secondary repol abnrm Inferior infarct, acute (RCA) Probable RV involvement, suggest recording right precordial leads Electronically Signed On 07-15-2024 17:44:53 PST by Sammy Swift Please click the below link to view image of tracing.
[2024-07-14 19:42] LABS: Rapid Influenza A Negative (Negative); Rapid Influenza B Negative (Negative)
[2024-07-14 19:45] LABS: COVID19 ANTIGEN SOFIA FIA POSITIVE (NEGATIVE)
[2024-07-14 21:04] VITALS: PULSE 82; RESP 16; O2SAT 96
--- NOTE | 2024-07-14 21:22 | DVHHPRES ---
History of Present Illness Resident Creating Document: MICA BURRELL RESIDENT History of Present Illness Patient is 83 years old female with past medical history of coronary artery disease, COPD, hyperlipidemia, hypertension, thyroid disease, arthritis came with a complaint of cough and shortness of breath for 2 days. As per patient she is having dry cough for last 2 days associated with some shortness of breath which worsened a little bit with walking. Patient also endorsed some fever but she does not know the record of temperature temperature that was taken in the correction. Patient reported that she has been having runny nose for last 4 days and was feeling tired, fatigue and some malaise. Patient has been around sick people at the correction. Patient has also bilateral leg swelling but she said this has been going on for off and on that increased with walking and decreased with sitting. Patient denied any chest pain, palpitation, constipation or diarrhea, dizziness, acute joint swelling or dysarthria. Initial lab workup revealed elevated creatinine 1.08,, low GFR 51, alkaline phosphatase 22, serum creatinine 0.1, Patient tested positive for COVID-19, negative for influenza type a or B . Urinalysis negative for UTI. Patient was also admitted at [facility] on May with COVID-19 Past Medical History coronary artery disease, COPD, hyperlipidemia, hypertension, thyroid disease, arthritis Past Surgical History Hysterectomy, tonsillectomy, cholecystectomy, cataract surgery, history of lumbar spine surgery Family History Mom had hypertension, coronary artery disease, stroke, dad was healthy Past Social History Patient is ex-smoker, last smoking 1 year before, ex alcoholic, denies drug abuse, lives in a correction or assisted living facility name [facility] Review of Systems Review of Systems Allergy- albuterol Personal History/ Social History- Patient was seen today at the bedside. Patient reports some cough and shortness of breaths and feeling tired Cardiovascular- deny acute chest pain or palpitation Gastrointestinal- denies any rectal bleeding, nausea or vomiting Musculoskeletal-denies acute joint swelling or tenderness or redness Neurological- denies acute dysarthria, dysphagia, change in vision Psychiatry- denies depression or SI or HI Skin- denies acute rash or purpura Allergies: Coded Allergies: Albuterol (Verified Allergy, Unknown, 10/14/19) Exam Vital Signs Vital Signs Date Time Temp Pulse Resp B/P (MAP) Pulse Ox O2 Delivery O2 Flow Rate FiO2 07/14/24 21:04 99.5 82 16 135/59 (84) 96 99.5 07/14/24 21:04 Nasal Cannula* 2 28 Exam General examination- HEENT- PEERLA, no acute nasal discharge Cardiovascular- S1-S2 audible, rate and rhythm regular, no murmur Respiratory- CTAB, no wheeze or rhonchi Gastrointestinal-nontender, bowel sound+. Nondistended Musculoskeletal-no acute joint swelling or tenderness or redness# Lower extremity- Neurological- cranial nerves intact, no acute dysarthria or dysphagia Psychiatry- denies depression or SI or HI Skin- no acute rash or purpura Labs/Xrays Labs Test 07/14/24 18:50 07/14/24 17:32 07/14/24 14:00 07/14/24 13:25 Range/Units Influenza Type A Antigen Negative Negative Influenza Type B Antigen Negative Negative SARS-CoV-2 Antigen (Rapid) Positive NEGATIVE Troponin I High Sensitivity 17 </=34 ng/L White Blood Count 9.2 4.4-10.8 10^3/uL Red Blood Count 5.11 4.0-5.20 10^6/uL Hemoglobin 14.5 12.2-16.2 g/dL Hematocrit 43.1 36.0-46.0 % Mean Corpuscular Volume 84.3 80.0-100.0 fL Mean Corpuscular Hemoglobin 28.4 28.0-32.0 pg Mean Corpuscular Hemoglobin Concent 33.7 32.0-36.0 g/dL Red Cell Distribution Width 14.5 H 11.8-14.3 % Platelet Count 190 140-450 10^3/uL Mean Platelet Volume 9.0 6.9-10.8 fL Neutrophils (%) (Auto) 77.5 37.0-80.0 % Lymphocytes (%) (Auto) 8.9 L 10.0-50.0 % Monocytes (%) (Auto) 10.6 0.0-12.0 % Eosinophils (%) (Auto) 2.1 0.0-7.0 % Basophils (%) (Auto) 0.9 0.0-2.0 % Neutrophils # (Auto) 7.1 1.6-8.6 10 ^3/uL Lymphocytes # (Auto) 0.8 0.4-5.4 10 ^3/uL Monocytes # (Auto) 1.0 0-1.3 10 ^3/uL Eosinophils # (Auto) 0.2 0-0.8 10 ^3/uL Basophils # (Auto) 0.1 0-0.2 10 ^3/uL Nucleated Red Blood Cells 0.0 % Sodium Level 139 136-145 mmol/L Potassium Level 4.3 3.5-5.1 mmol/L Chloride Level 101 98-107 mmol/L Carbon Dioxide Level 32 H 20-31 mmol/L Anion Gap 6 5-15 Blood Urea Nitrogen 23 9-23 mg/dL Creatinine 1.08 H 0.550-1.02 mg/dL Glomerular Filtration Rate Calc 51 >90 mL/min BUN/Creatinine Ratio 21.3 H 10.0-20.0 Serum Glucose 87 74-106 mg/dL Lactic Acid Level 1.7 0.4-2.0 mmol/L Calcium Level 10.1 8.7-10.4 mg/dL Urine Color Light-yellow Yellow Urine Clarity Clear Clear Urine pH 7.0 5.0-9.0 Urine Specific [place] 1.012 1.001-1.035 Urine Protein Negative Negative Urine Ketones Negative Negative Urine Blood Negative Negative /uL Urine Nitrite Negative Negative Urine Bilirubin Negative Negative Urine Urobilinogen Normal Negative mg/dL Urine Leukocyte Esterase Negative Negative /uL Urine RBC 3 0 - 4 /hpf Urine WBC <1 0 - 5 /hpf Urine Squamous Epithelial Cells Few <5 /hpf Urine Bacteria None seen None Seen /hpf Urine Glucose Normal Normal mg/dL Assessment/Plan Assessment/Plan # acute hypoxic respiratory failure likely due to pneumonia Gram-positive versus Gram-negative/acute exacerbation of COPD -bilateral wheezing on lung auscultation -CXR right lung base opacity, cardiomegaly -ordered CT chest without contrast for further evaluation and care -continue ceftriaxone 1 g IV daily -continue azithromycin iv 500 mg daily -continue prednisone 40 mg p.o. daily -pending sputum CS # acute exacerbation of COPD likely due to pneumonia Gram-positive versus Gram-negative/COVID-19 -patient tested positive COVID-19 --bilateral wheezing on lung auscultation -CXR right lung base opacity, cardiomegaly -ordered CT chest without contrast for further evaluation and care -continue ceftriaxone 1 g IV daily -continue azithromycin iv 500 mg daily -continue prednisone 40 mg p.o. daily -pending sputum CS --on isolation and contact precaution # COVID-19 infection -patient tested positive for COVID-19 -continue current management -on NC O2 2 liter/minute -on isolation and contact precaution # bilateral leg edema likely due to congestive heart failure systolic versus diastolic -pending BNP report -pending echo 2D -continue Lasix 20 mg p.o. daily # coronary artery disease -continue aspirin 81 mg p.o. daily -continue simvastatin 40 mg p.o. q.h.s. # hypertension -continue lisinopril 10 mg p.o. q.d. -continue hydralazine 10 mg IV q.6h p.r.n. -monitor BP # of hypothyroidism -TSH -2.83 -continue levothyroxine 75 mcg q.a.m. # obesity, BMI 29.7 -patient was counseled about the healthy diet, weight reduction, physical activity # arthritis -continue pain medication as prescribed PCP-Dr. Babar Mon Goals of care/advance care planning; FULL CODE; discussed with the patient >15 minutes PUD prophylaxis: Pantoprazole DVT prophylaxis: Lovenox Plan discussed with Dr. Collier, nursing staff, patient Total time spent on patient evaluation, chart review, assessment and plan, discussion discussion >30 minutes Plan discussed with: Patient Plan discussed with: Patient, Other (RN) Date of Service: Jul 14, 2024 Billing Provider: MATEUS COLLIER MD Common Visit Codes: [id number] INP/OBS CARE (HIGH) Secondary Visit Codes: [id number] CARE PLAN 30 MINUTES MICA BURRELL RESIDENT Jul 14, 2024 21:22 MATEUS COLLIER MD Jul 16, 2024 08:24
[2024-07-14] MEDS ORDERED: ONDANSETRON HCL 4 MG/2 ML VIAL IV PRN (21:30)
[2024-07-14] MEDS ORDERED: NITROGLYCERIN 0.4 MG SL TAB SL PRN (21:30)
[2024-07-14] MEDS ORDERED: MORPHINE SULFATE INJ 2 MG/ml SYRG IV PRN ×2 (21:30)
[2024-07-14] MEDS: SODIUM CHLOR 0.9% PF (SALINE LOCK) 10ML VIAL/SYR IV SCH (22:03)
[2024-07-14] MEDS ORDERED: ALBUTEROL SULF 2.5 MG/0.5ML(0.5%) NEB SOLN NEB PRN (23:00)
[2024-07-14] MEDS ORDERED: IPRATROPIUM BROM 0.5 MG/2.5ML INH SOL NEB PRN (23:00)
[2024-07-14] MEDS ORDERED: ALBUTEROL SULF 2.5 MG/0.5ML(0.5%) NEB SOLN NEB ONE (23:00)
[2024-07-14] MEDS: LISINOPRIL 5 MG TAB PO ONE (23:00)
[2024-07-14] MEDS: IPRATROPIUM BROM 0.5 MG/2.5ML INH SOL NEB ONE (23:24)
[2024-07-14 23:27] LABS: Alanine Aminotransferase 16 U/L (7-40); Albumin 4.8 g/dL (3.2-4.8); Alkaline Phosphatase 202 U/L (46-116); Anion Gap 11 (5-15); Aspartate Aminotransferase 24 U/L (13-40); BUN/Creatinine Ratio 20.6 (10.0-20.0); Blood Urea Nitrogen 22 mg/dL (9-23); Calcium 10.7 mg/dL (8.7-10.4); Carbon Dioxide 27 mmol/L (20-31); Chloride 101 mmol/L (98-107); Glucose 119 mg/dL (74-106); Potassium 4.4 mmol/L (3.5-5.1); Sodium 139 mmol/L (136-145)
[2024-07-14 23:28] LABS: Bilirubin, Total 0.8 mg/dL (0.2-1.0); Total Protein 7.8 g/dL (5.7-8.2)
[2024-07-14] MEDS: methylPREDNISolone SOD SUCC 40 MG/ML VL IV ONE (23:36)
[2024-07-14] MEDS: cefTRIAXone 1GM/50ML D5W 50 ML IV ONE (23:36)
[2024-07-14] MEDS ORDERED: LISINOPRIL 5 MG TAB ONE (23:42)
[2024-07-14 23:44] VITALS: BP 135/59; RESP 18; TEMP 99.5; O2SAT 96
[2024-07-15] VITALS (9 sets, daily range): BP systolic 101–129; BP diastolic 48–93; PULSE 71–85; RESP 16–18; TEMP 97.3–98.8; O2SAT 94–97
[2024-07-15] MEDS: PANTOPRAZOLE 40 MG TAB PO ONE ×2 (00:45→02:58)
[2024-07-15] MEDS: AZITHROMYCIN 500MG/ 250ML 250 ML IV ONE ×2 (02:18→02:29)
[2024-07-15] MEDS: ACETAMINOPHEN 325 MG TAB PO PRN (02:24)
[2024-07-15] MEDS ORDERED: LISINOPRIL 5 MG TAB ONE (02:50)
[2024-07-15] MEDS ORDERED: PANTOPRAZOLE 40 MG TAB PO ONE (02:51)
[2024-07-15] MEDS: LISINOPRIL 5 MG TAB PO ONE (02:58)
[2024-07-15 05:36] LABS: Basophils # (auto) 0 10 ^3/uL (0-0.2); Basophils % (auto) 0.4 % (0.0-2.0); Eosinophils # (auto) 0 10 ^3/uL (0-0.8); Eosinophils % (auto) 0.1 % (0.0-7.0); Hematocrit 40.7 % (36.0-46.0); Hemoglobin 13.9 g/dL (12.2-16.2); Lymphocytes # (auto) 0.8 10 ^3/uL (0.4-5.4); Lymphocytes % (auto) 8.8 % (10.0-50.0); Mean Corpuscular Hemoglobin 28.5 pg (28.0-32.0); Mean Corpuscular Hgb Conc. 34.1 g/dL (32.0-36.0); Mean Corpuscular Volume 83.6 fL (80.0-100.0); Monocytes # (auto) 0.2 10 ^3/uL (0-1.3); Neutrophils # (auto) 7.8 10 ^3/uL (1.6-8.6); Neutrophils % (auto) 88.7 % (37.0-80.0); Platelet Count (auto) 170 10^3/uL (140-450); Red Blood Cells 4.87 10^6/uL (4.0-5.20); Red Cell Distribution Width 14.7 % (11.8-14.3); White Blood Cell 8.8 10^3/uL (4.4-10.8)
[2024-07-15] MEDS: PANTOPRAZOLE 40 MG TAB PO SCH (06:00)
[2024-07-15 06:05] LABS: Alanine Aminotransferase 13 U/L (7-40); Albumin 4.5 g/dL (3.2-4.8); Alkaline Phosphatase 175 U/L (46-116); Anion Gap 7 (5-15); Aspartate Aminotransferase 18 U/L (13-40); BUN/Creatinine Ratio 20.6 (10.0-20.0); Bilirubin, Total 0.9 mg/dL (0.2-1.0); Blood Urea Nitrogen 21 mg/dL (9-23); Calcium 9.9 mg/dL (8.7-10.4); Carbon Dioxide 29 mmol/L (20-31); Chloride 100 mmol/L (98-107); Glucose 172 mg/dL (74-106); Magnesium 2.4 mg/dL (1.6-2.6); Potassium 4.2 mmol/L (3.5-5.1); Sodium 136 mmol/L (136-145); Total Protein 7.2 g/dL (5.7-8.2)
[2024-07-15] MEDS: ENOXAPARIN SOD 40 MG/0.4 ML SYRINGE SC SCH (10:00)
--- NOTE | 2024-07-15 10:03 | DVH ---
Procedure: CT CHEST WITHOUT CONTRAST Reason for study/Clinical History: Shortness of breath. Comparison Study: 09/05/2021 Exam Date: 07/15/2024 09:16 AM TECHNIQUE: Multidetector CT of the chest was performed from the lung apices to the upper abdomen with out the use of intravenous contract. Axial, coronal and sagittal multiplanar reformats were performed . Radiation Dose Information: CT Dose: CTDI volume is 15.48 mGy. Dose-length product is 553.01 mGy*cm The dose indicators for CT are the volume Computed Tomography (CT) Dose Index (CTDIvol) and the Dose Length Product (DLP), and are measured in units of mGy and mGy-cm, respectively. These indicators are not patient dose, but values generated from the CT scanner acquisition factors. The report includes radiation exposure data for exposures received during this examination. Radiation optimization: All CT scans at this facility use at least one of these dose optimization blanca hniques: automated exposure control mA and/or kV adjustment per patient size (includes targeted exam s where dose is matched to clinical indication) or iterative reconstruction. FINDINGS Lungs: There is a stable 4 mm subpleural nodule in the anterior right upper lobe. There is no new elsa picious appearing pulmonary nodule or mass. There is no lung consolidation. There is mild scarring v ersus atelectasis in the lung bases. Heart/Vascular Structures: Normal heart size. No pericardial effusion. There are coronary artery calc ifications. Lymph Nodes: No significant thoracic lymphadenopathy. Pleura: No pleural effusion or significant pneumothorax. Musculoskeletal: There is moderate dextroconvex scoliosis of the thoracic spine with multilevel spond ylosis. Soft tissues: Unremarkable. Upper abdomen: Visualized solid abdominal viscera grossly appears unremarkable. IMPRESSION: 1. There is no acute intrathoracic abnormality. 2. Stable 4 mm subpleural nodule in the anterior right upper lobe. There is no new suspicious appea ring pulmonary nodule or mass. 3. Moderate dextroconvex scoliosis of the thoracic spine with multilevel spondylosis. HS:Y
[2024-07-15] MEDS: FUROSEMIDE 20 MG TAB PO SCH (10:11)
[2024-07-15] MEDS: predniSONE 20 MG TAB PO SCH (10:12)
[2024-07-15] MEDS: LISINOPRIL 5 MG TAB PO SCH (10:12)
[2024-07-15] MEDS: ASPirin 81 mg TAB PO SCH (10:12)
[2024-07-15] MEDS: LEVOTHYROXINE SODIUM 50 MCG TAB PO SCH (10:13)
[2024-07-15] MEDS: SENNA 8.6 MG TAB PO SCH (10:13)
--- NOTE | 2024-07-15 17:34 | DVHPN2 ---
Subjective Seen and examined on bedside, on 2L oxygen. Changes from previous H/P or p: No Changes Objective Vitals Vital Signs Date Time Temp Pulse Resp B/P (MAP) Pulse Ox O2 Delivery O2 Flow Rate FiO2 07/15/24 17:00 98.1 79 18 101/59 (73) 97 98.1 07/15/24 08:00 Nasal Cannula* 2 28 Intake/Output Intake and Output 07/15/24 07:00 Intake Total 600 ml Output Total 0 ml Balance 600 ml Intake Oral 600 ml Output Urine Total 0 ml Exam Gen: in bed NAD Cvs: N S1/S2, RRR Resp: Wheezing Abd: Soft, NT, BS+ Food Preparer: AAO x 4 Medications Current Medications Medications Dose Ordered Sig/Vamshi Route Start Time Stop Time Status Last Admin Dose Admin Sodium Chloride 10 ml Q8HR IV 07/14/24 22:00 07/15/24 14:10 10 ML Ondansetron HCl 4 mg Q4HP PRN IV 07/14/24 21:30 Enoxaparin Sodium 40 mg DAILY SC 07/15/24 10:00 Acetaminophen 650 mg Q6HP PRN PO 07/14/24 21:30 07/15/24 02:24 650 MG Morphine Sulfate 2 mg Q4HPRN PRN IV 07/14/24 21:30 Nitroglycerin 0.4 mg Q5MINP PRN SL 07/14/24 21:30 Morphine Sulfate 2 mg Q30M PRN IV 07/14/24 21:30 Prednisone 40 mg DAILY PO 07/15/24 10:00 07/15/24 10:12 40 MG Ipratropium [place] 0.5 mg Q6HPRN PRN NEB 07/14/24 23:00 Ceftriaxone Sodium 50 ml @ 100 mls/hr DAILY@2100 IV 07/15/24 21:00 Azithromycin 250 ml @ 125 mls/hr DAILY@2200 IV 07/15/24 22:00 Aspirin 81 mg DAILY PO 07/15/24 10:00 07/15/24 10:12 81 MG Furosemide 20 mg DAILY PO 07/15/24 10:00 07/15/24 10:11 20 MG Sennosides 8.6 mg BID PO 07/15/24 10:00 07/15/24 10:13 8.6 MG Lisinopril 10 mg DAILY PO 07/15/24 10:00 07/15/24 10:12 10 MG Levothyroxine Sodium 50 mcg DAILY PO 07/15/24 10:00 07/15/24 10:13 50 MCG Atorvastatin Calcium 20 mg HS PO 07/15/24 22:00 Pantoprazole Sodium 40 mg DAILY@0600 PO 07/15/24 06:00 Laboratory Results Laboratory Tests 07/15/24 05:06 Chemistry Test 07/15/24 05:06 Albumin 4.5 g/dL (3.2-4.8) Calcium Level 9.9 mg/dL (8.7-10.4) Magnesium Level 2.4 mg/dL (1.6-2.6) Total Protein 7.2 g/dL (5.7-8.2) Cardiac Markers Test 07/15/24 05:06 B-Type Natriuretic Peptide 218.31 pg/mL (0-100) LFT Test 07/15/24 05:06 Alanine Aminotransferase (ALT) 13 U/L (7-40) Alkaline Phosphatase 175 U/L (46-116) H Aspartate Amino Transferase (AST) 18 U/L (13-40) Total Bilirubin 0.9 mg/dL (0.2-1.0) Urinalysis Test 07/14/24 13:25 Urine Color Light-yellow (Yellow) Urine Clarity Clear (Clear) Urine pH 7.0 (5.0-9.0) Urine Specific [place] 1.012 (1.001-1.035) Urine Protein Negative (Negative) Urine Ketones Negative (Negative) Urine Blood Negative /uL (Negative) Urine Nitrite Negative (Negative) Urine Bilirubin Negative (Negative) Urine Urobilinogen Normal mg/dL (Negative) Urine Leukocyte Esterase Negative /uL (Negative) Urine RBC 3 /hpf (0 - 4) Urine WBC <1 /hpf (0 - 5) Urine Squamous Epithelial Cells Few /hpf (<5) Urine Bacteria None seen /hpf (None Seen) Urine Glucose Normal mg/dL (Normal) Microbiology Microbiology Date/Time Source Procedure Growth Status 07/14/24 14:10 Blood Blood Culture - Preliminary NO GROWTH AFTER 24 HOURS OF INCUBATION. Resulted Assessment/Plan Assessment/Plan # acute exacerbation of COPD likely due to pneumonia Gram-positive versus Gram-negative/COVID-19 -patient tested positive COVID-19 --bilateral wheezing on lung auscultation -CXR right lung base opacity, cardiomegaly -ordered CT chest without contrast for further evaluation and care -continue ceftriaxone 1 g IV daily -continue azithromycin iv 500 mg daily -continue prednisone 40 mg p.o. daily -pending sputum CS --on isolation and contact precaution # COVID-19 infection -patient tested positive for COVID-19 -continue current management -on NC O2 2 liter/minute -on isolation and contact precaution # bilateral leg edema likely due to congestive heart failure systolic versus diastolic -pending BNP report -pending echo 2D -continue Lasix 20 mg p.o. daily # coronary artery disease -continue aspirin 81 mg p.o. daily -continue simvastatin 40 mg p.o. q.h.s. # hypertension -continue lisinopril 10 mg p.o. q.d. -continue hydralazine 10 mg IV q.6h p.r.n. -monitor BP # of hypothyroidism -TSH -2.83 -continue levothyroxine 75 mcg q.a.m. # obesity, BMI 29.7 -patient was counseled about the healthy diet, weight reduction, physical activity Plan discussed with: Patient My Orders Orders - MATEUS COLLIER MD Procedure Category Date Status Time Furosemide Injection PHA 07/15/24 Verified (Lasix Injection) 17:45 Furosemide Injection PHA 07/16/24 Verified (Lasix Injection) 06:00 Basic Metabolic Panel LAB 07/16/24 Verified 04:00 Date of Service: Jul 15, 2024 Billing Provider: MATEUS COLLIER MD Common Visit Codes: [id number] INP/OBS CARE(HIGH) MATEUS COLLIER MD Jul 15, 2024 17:34
[2024-07-15] MEDS: FUROSEMIDE 20 MG/2 ML VIAL IV ONE (17:56)
[2024-07-15] MEDS: cefTRIAXone 1GM/50ML D5W 50 ML IV SCH (20:37)
[2024-07-15] MEDS: AZITHROMYCIN 500MG/ 250ML 250 ML IV SCH (22:33)
[2024-07-15] MEDS: ATORVASTATIN 20 MG TAB PO SCH (22:35)
--- NOTE | 2024-07-16 02:07 | DVHSR ---
APPROVED REPORT EXAM: Two-dimensional and M-mode echocardiogram with Doppler and color Doppler. Blood Pressure: 120/56 mmHg INDICATION SOB, B/L leg swelling. Rule out CHF RISK FACTORS Height: 63, Weight: 211 DIMENSIONS LVDd (3.8-5.7cm)LA (2D)3.7 (1.9-4.0cm)Aortic Root (2.0-3.7cm) EF (%) 54.0 (55-70%)Rt. Atrium3.6 (1.9-4.0cm)Asc. Aorta cm Mitral Valve MitralMitral Stenosis E wave1.20m/sMV Mean GR.5mmHg A wave1.33m/sMV Peak GR.165mmHg E/A ratio0.92D MVAcm2 DECEL [id number] 1/2 [id number] IVRTmsDop MVA2.34cm2 Aortic Valve Aortic ValveAortic Stenosis V1m/[place] Mean GR.19mmHg V22.87m/[place] Peak GR.35mmHg LVOT Diameter2.1 (1.8-2.4cm)Doppler AVAcm2 Pulmonic Valve V21.05m/s Tricuspid Valve TR Velocity2.69m/s [id number] Other Information Technically limited study due to body habitus and patient position. Conclusion MILD LVH AND MILD LV DIASTOLIC DYSFUNCTION LV EJECTION FRACTION IS 65% HEAVILY CALCIFIED AORTIC LEAFLETS AND HAS DECREASED OPENING PEAK GRADIENT ACROSS AORTIC VALVE IS 35 MM OF HG AND MEAN GRADIENT IS 19 MM OF HG STUDY HIGHLY SUGGESTIVE OF MILD TO MODERATE DEGREE AORTIC STENOSIS AORTIC VALVE AREA IS NOT CALCULATED POSTIOR MITRAL LEAFLET IS MODERATELY CALCIFIED NORMAL RV FUNCTION NO EFFUSION
[2024-07-16] MEDS: FUROSEMIDE 20 MG/2 ML VIAL IV SCH (05:28)
[2024-07-16 05:39] VITALS: BP 128/69; PULSE 86; RESP 18; TEMP 98.2; O2SAT 93
[2024-07-16 06:50] LABS: Calcium 9.5 mg/dL (8.7-10.4); Chloride 99 mmol/L (98-107); Sodium 134 mmol/L (136-145)
[2024-07-16 06:51] LABS: Anion Gap 8 (5-15); Carbon Dioxide 27 mmol/L (20-31)
[2024-07-16 06:57] LABS: BUN/Creatinine Ratio 21.7 (10.0-20.0); Blood Urea Nitrogen 20 mg/dL (9-23); Glucose 98 mg/dL (74-106)
[2024-07-16 09:00] VITALS: BP 125/43; PULSE 82; RESP 19; TEMP 98.5; O2SAT 92
[2024-07-16] MEDS ORDERED: METH4PAK PO (10:26)
[2024-07-16] MEDS ORDERED: AZITTAB PO (10:26)
--- NOTE | 2024-07-16 10:30 | DVHDS2 ---
Discharge Summary Date of Admission Jul 14, 2024 at 22:35 Date of Discharge: Jul 16, 2024 Admitting Diagnosis COVID19 Labs/Diagnostic Data: Laboratory Results Test 07/16/24 05:36 07/15/24 05:06 07/14/24 18:50 07/14/24 17:32 Sodium Level 134 mmol/L (136-145) Potassium Level 4.0 mmol/L (3.5-5.1) Chloride Level 99 mmol/L (98-107) Carbon Dioxide Level 27 mmol/L (20-31) Anion Gap 8 (5-15) Blood Urea Nitrogen 20 mg/dL (9-23) Creatinine 0.92 mg/dL (0.550-1.02) Glomerular Filtration Rate Calc 61 mL/min (>90) BUN/Creatinine Ratio 21.7 (10.0-20.0) Serum Glucose 98 mg/dL (74-106) Calcium Level 9.5 mg/dL (8.7-10.4) White Blood Count 8.8 10^3/uL (4.4-10.8) Red Blood Count 4.87 10^6/uL (4.0-5.20) Hemoglobin 13.9 g/dL (12.2-16.2) Hematocrit 40.7 % (36.0-46.0) Mean Corpuscular Volume 83.6 fL (80.0-100.0) Mean Corpuscular Hemoglobin 28.5 pg (28.0-32.0) Mean Corpuscular Hemoglobin Concent 34.1 g/dL (32.0-36.0) Red Cell Distribution Width 14.7 % (11.8-14.3) Platelet Count 170 10^3/uL (140-450) Mean Platelet Volume 8.9 fL (6.9-10.8) Neutrophils (%) (Auto) 88.7 % (37.0-80.0) Lymphocytes (%) (Auto) 8.8 % (10.0-50.0) Monocytes (%) (Auto) 2.0 % (0.0-12.0) Eosinophils (%) (Auto) 0.1 % (0.0-7.0) Basophils (%) (Auto) 0.4 % (0.0-2.0) Neutrophils # (Auto) 7.8 10 ^3/uL (1.6-8.6) Lymphocytes # (Auto) 0.8 10 ^3/uL (0.4-5.4) Monocytes # (Auto) 0.2 10 ^3/uL (0-1.3) Eosinophils # (Auto) 0 10 ^3/uL (0-0.8) Basophils # (Auto) 0 10 ^3/uL (0-0.2) Nucleated Red Blood Cells 0.0 % Magnesium Level 2.4 mg/dL (1.6-2.6) Total Bilirubin 0.9 mg/dL (0.2-1.0) Aspartate Amino Transferase (AST) 18 U/L (13-40) Alanine Aminotransferase (ALT) 13 U/L (7-40) Alkaline Phosphatase 175 U/L (46-116) B-Type Natriuretic Peptide 218.31 pg/mL (0-100) Total Protein 7.2 g/dL (5.7-8.2) Albumin 4.5 g/dL (3.2-4.8) Influenza Type A Antigen Negative (Negative) Influenza Type B Antigen Negative (Negative) SARS-CoV-2 Antigen (Rapid) Positive (NEGATIVE) Troponin I High Sensitivity 17 ng/L (</=34) Thyroid Stimulating Hormone (TSH) 2.83 uIU/mL (0.55-4.78) Test 07/14/24 14:00 07/14/24 13:25 Lactic Acid Level 1.7 mmol/L (0.4-2.0) Vitamin B12 Level 646 pg/mL (211-911) Vitamin D 25-Hydroxy 35.4 ng/mL (30.0-100) Urine Color Light-yellow (Yellow) Urine Clarity Clear (Clear) Urine pH 7.0 (5.0-9.0) Urine Specific [place] 1.012 (1.001-1.035) Urine Protein Negative (Negative) Urine Ketones Negative (Negative) Urine Blood Negative /uL (Negative) Urine Nitrite Negative (Negative) Urine Bilirubin Negative (Negative) Urine Urobilinogen Normal mg/dL (Negative) Urine Leukocyte Esterase Negative /uL (Negative) Urine RBC 3 /hpf (0 - 4) Urine WBC <1 /hpf (0 - 5) Urine Squamous Epithelial Cells Few /hpf (<5) Urine Bacteria None seen /hpf (None Seen) Urine Glucose Normal mg/dL (Normal) Other Laboratory Tests 07/16/24 05:36 07/15/24 05:06 Brief Hx & Hospital Course: Patient is 83 years old female with past medical history of coronary artery disease, COPD, hyperlipidemia, hypertension, thyroid disease, arthritis came with a complaint of cough and shortness of breath for 2 days. As per patient she is having dry cough for last 2 days associated with some shortness of breath which worsened a little bit with walking. Patient also endorsed some fever but she does not know the record of temperature temperature that was taken in the custodial. Patient reported that she has been having runny nose for last 4 days and was feeling tired, fatigue and some malaise. Patient has been around sick people at the custodial. Patient has also bilateral leg swelling but she said this has been going on for off and on that increased with walking and decreased with sitting. Patient denied any chest pain, palpitation, constipation or diarrhea, dizziness, acute joint swelling or dysarthria. Initial lab workup revealed elevated creatinine 1.08,, low GFR 51, alkaline phosphatase 22, serum creatinine 0.1, Patient tested positive for COVID-19, negative for influenza type a or B . Urinalysis negative for UTI. Patient is on room air now, feeling better. Will be discharged home to [place]. CT Chest was done. Operations or Procedures APPROVED REPORT EXAM: Two-dimensional and M-mode echocardiogram with Doppler and color Doppler. Blood Pressure: 120/56 mmHg INDICATION SOB, B/L leg swelling. Rule out CHF RISK FACTORS Height: 63, Weight: 211 DIMENSIONS LVDd (3.8-5.7cm) LA (2D) 3.7 (1.9-4.0cm) Aortic Root (2.0-3.7cm) EF (%) 54.0 (55-70%) Rt. Atrium 3.6 (1.9-4.0cm) Asc. Aorta cm Mitral Valve Mitral Mitral Stenosis E wave 1.20m/s MV Mean GR. 5mmHg A wave 1.33m/s MV Peak GR. 165mmHg E/A ratio 0.9 2D MVA cm2 DECEL Time 282ms PRESS 1/2 Time 94ms IVRT ms Dop MVA 2.34cm2 Aortic Valve Aortic Valve Aortic Stenosis V1 m/s AO Mean GR. 19mmHg V2 2.87m/s AO Peak GR. 35mmHg LVOT Diameter 2.1 (1.8-2.4cm) Doppler STEVEN cm2 Pulmonic Valve V2 1.05m/s Tricuspid Valve TR Velocity 2.69m/s RVSP 42mmHg Other Information Technically limited study due to body habitus and patient position. Conclusion MILD LVH AND MILD LV DIASTOLIC DYSFUNCTION LV EJECTION FRACTION IS 65% HEAVILY CALCIFIED AORTIC LEAFLETS AND HAS DECREASED OPENING PEAK GRADIENT ACROSS AORTIC VALVE IS 35 MM OF HG AND MEAN GRADIENT IS 19 MM OF HG STUDY HIGHLY SUGGESTIVE OF MILD TO MODERATE DEGREE AORTIC STENOSIS AORTIC VALVE AREA IS NOT CALCULATED POSTIOR MITRAL LEAFLET IS MODERATELY CALCIFIED NORMAL RV FUNCTION NO EFFUSION Procedure: CT CHEST WITHOUT CONTRAST Reason for study/Clinical History: Shortness of breath. Comparison Study: 09/05/2021 Exam Date: 07/15/2024 09:16 AM TECHNIQUE: Multidetector CT of the chest was performed from the lung apices to the upper abdomen without the use of intravenous contract. Axial, coronal and sagittal multiplanar reformats were performed. Radiation Dose Information: CT Dose: CTDI volume is 15.48 mGy. Dose-length product is 553.01 mGy*cm The dose indicators for CT are the volume Computed Tomography (CT) Dose Index (CTDIvol) and the Dose Length Product (DLP), and are measured in units of mGy and mGy-cm, respectively. These indicators are not patient dose, but values generated from the CT scanner acquisition factors. The report includes radiation exposure data for exposures received during this examination. Radiation optimization: All CT scans at this facility use at least one of these dose optimization techniques: automated exposure control mA and/or kV adjustment per patient size (includes targeted exams where dose is matched to clinical indication) or iterative reconstruction. FINDINGS Lungs: There is a stable 4 mm subpleural nodule in the anterior right upper lobe. There is no new suspicious appearing pulmonary nodule or mass. There is no lung consolidation. There is mild scarring versus atelectasis in the lung bases. Heart/Vascular Structures: Normal heart size. No pericardial effusion. There are coronary artery calcifications. Lymph Nodes: No significant thoracic lymphadenopathy. Pleura: No pleural effusion or significant pneumothorax. Musculoskeletal: There is moderate dextroconvex scoliosis of the thoracic spine with multilevel spondylosis. Soft tissues: Unremarkable. Upper abdomen: Visualized solid abdominal viscera grossly appears unremarkable. IMPRESSION: 1. There is no acute intrathoracic abnormality. 2. Stable 4 mm subpleural nodule in the anterior right upper lobe. There is no new suspicious appearing pulmonary nodule or mass. 3. Moderate dextroconvex scoliosis of the thoracic spine with multilevel spondylosis. Condition at Discharge: Poor Final Diagnosis/Problems List COVID19 COPD Exacerbation Obesity Chronic Diastolic CHF Discharge Disposition: Home Discharge Instruct/Medications Diet: Regular Activity: Light activity Follow Up/Referral: PCP in 2 weeks Medications: see [facility] Discharge Statement: "Patient was advised to return to the ER or call 911 if any headaches, dizziness, shortness of breath, chest pain, abdominal pain, bleeding, fevers, or worsening of medical condition. Patient was counseled about treatment plan, medications, possible side effects, patientverbalized understanding. All questions were answered to the best of my ability. This discharge took greater then 30 minutes in planning, reviewing documentation, counseling the patient, and discussing with other team members." ASSESSMENT ASSESSMENT Assessment Date of Service: Jul 16, 2024 Billing Provider: MATEUS COLLEIR MD Common Visit Codes: [id number]/[id number] DISCH DAY >30min MATEUS COLLIER MD Jul 16, 2024 10:29
== END 2024-07-16 11:45 | disposition home or self-care (01) | DRG 177 ==
LOC: EDBD 13:06 → ER 13:06 → OVERFLOW 21:26 → UNDOADMIN 21:26 → TELE 22:35 → OVERFLOW 23:41 → TELE-EAST 23:41
PROVIDERS: ADMIT Internal Medicine; ATTEND Internal Medicine
DX: U07.1 COVID-19 (principal); J96.01 Acute respiratory failure with hypoxia; J44.1 Chronic obstructive pulmonary disease with (acute) exacerbation; I50.32 Chronic diastolic (congestive) heart failure; E66.9 Obesity, unspecified; I25.10 Atherosclerotic heart disease of native coronary artery without angina pectoris; E78.5 Hyperlipidemia, unspecified; M19.09 Primary osteoarthritis, other specified site; E03.9 Hypothyroidism, unspecified; I11.0 Hypertensive heart disease with heart failure; Z79.82 Long term (current) use of aspirin; Z79.899 Other long term (current) drug therapy; Z82.49 Family history of ischemic heart disease and other diseases of the circulatory system; Z87.891 Personal history of nicotine dependence; Z90.710 Acquired absence of both cervix and uterus; Z90.49 Acquired absence of other specified parts of digestive tract; Z68.29 Body mass index [BMI] 29.0-29.9, adult
CPT/HCPCS: 36415; 71045; 71250; 80048; 80053; 81001; 82306; 82607; 83605; 83735; 83880; 84443; 84484; 85025; 87040; 87426; 87804; 93005; 93306; 94640; 99291; G0378

== ENCOUNTER 2024-08-02 01:45 | Inpatient (IN) | payer OTHER ==
[~2024-08-02] VITALS: Ht 160 cm; Wt 93.7 kg
[2024-08-02] VITALS (17 sets, daily range): BP systolic 98–135; BP diastolic 40–53; PULSE 52–86; RESP 16–20; TEMP 97.3–98.6; O2SAT 90–98
[~2024-08-02 01:45] MED LIST changes: -MORP15TA PO
[2024-08-02] MEDS ORDERED: NITROGLYCERIN 0.4 MG SL TAB SL PRN (02:45)
[2024-08-02] MEDS ORDERED: MORPHINE SULFATE INJ 2 MG/ml SYRG IV PRN ×3 (02:45→06:00)
--- NOTE | 2024-08-02 02:46 | DVHHPRES ---
History of Present Illness Resident Creating Document: CHADWICK FRAZIER RESIDENT History of Present Illness Ms. Savage, a 83-year-old female with a past medical history of coronary artery disease, COPD, hyperlipidemia, hypertension, thyroid disease, arthritis, hysterectomy, tonsillectomy, cholecystectomy, cataract surgery, and lumbar spine surgery,a resident of [facility], was transferred from [facility] for further care and evaluation. The patient was initially brought to [facility] on 08/01/2024 for lower back pain and right hip pain following a fall while attempting to get out of bed. She landed on her bottom, denied hitting her head, losing consciousness, neck pain, or being on blood thinners but takes aspirin daily. Also reported feeling short of breath and having intermittent needle-like right-sided chest pain. During hospitalization, she was found to have 96% SpO2 with 2 L of nasal cannula oxygen, bilateral wheezing, and back and hip pain rated 9/10. NT-proBNP was elevated at 1856, but other labs were unremarkable. Some CO2 retention was noted from blood gas, and she tested positive for COVID-19 but negative for RSV and influenza. A CT head without contrast on 08/01 showed no acute intracranial abnormality, age-related changes, cerebral volume loss, and findings of chronic microvascular angiopathy. A CT lumbar+Thoracic + Cervical spine, revealed no spinal stenosis or posttraumatic pathology, but noted right convex scoliotic curvature. The patient was given ceftriaxone 2 g, Zofran, and morphine before being transferred to [facility]. She was also admitted to [facility] in May with COVID-19, and on July 14, 2022, she was seen with cough and shortness of breath,with likely COPD exacerbation/ pneumonia with long COVID. Cardiovascular: CAD, HTN, hyperipidemia Pulmonary: COPD Musculoskeletal: Osteoarthritis Endocrine: Hypothyroidism Past Surgical History: Cholecystectomy, Cataract Removal, Hysterectomy, Other (several lumbar spinal surgery. ), Tonsillectomy Family History Mom had hypertension, coronary artery disease, stroke, dad was healthy Smoke: Quit ALCOHOL: none Drugs: None Lives: Other (fecility ) Domestic Violence: Neg Past Social History Patient is ex-smoker, last smoking 1 year before, ex alcoholic, denies drug abuse, lives in a alf or assisted living facility [facility] Review of Systems Constitutional: Yes: Weakness; No: Fever, Chills, Sweats, Malaise, Other Eyes: No: Pain, Vision change, Conjunctivae inflammation, Eyelid inflammation, Other, Redness ENT: No: Ear pain, Ear discharge, Nose pain, Nose discharge, Nose congestion, Mouth pain, Mouth swelling, Throat pain, Throat swelling, Other Respiratory: Cough, Shortness of breath, Wheezing, Pleuritic Pain; No: Dry, SOB with excertion, Hemoptysis, Sputum, Wheezing, Other Cardiovascular: Chest Pain; No: Palpitations, Orthopnea, Paroxysmal Noc. Dyspnea, Edema, Lt Headedness, Other Gastrointestinal: No: Nausea, Vomiting, Abdominal Pain, Diarrhea, Constipation, Melena, Hematochezia, Other Genitourinary: No Dysuria, No Frequency, No Incontinence, No Hematuria, No Retention, No Other Musculoskeletal: back pain; No: other, neck pain, shoulder pain, arm pain, hand pain, leg pain, foot pain Skin: No: Rash, Lesions, Jaundice, Bruising, Other Neurological: Weakness; No: Numbness, Incoordination, Change in speech, Confusion, Seizures, Other Allergies: Coded Allergies: Albuterol (Verified Allergy, Unknown, 10/14/19) Exam Vital Signs Vital Signs Date Time Temp Pulse Resp B/P (MAP) Pulse Ox O2 Delivery O2 Flow Rate FiO2 08/02/24 01:50 97.7 52 20 127/49 (75) 98 97.7 General Appearance: Alert, Oriented X3, Cooperative, No acute distress HEENT: Atraumatic, PERRLA, EOMI, Mucous membr. moist/pink Respiratory: Clear to auscultation, Normal air movement, Other (Basal rales and crackles.) Cardiovascular: Regular rate, Normal S1, Normal S2, No murmurs Abdominal: Normal bowel sounds, Soft, No tenderness, No hepatospenomegaly Extremities: No clubbing, No cyanosis, Normal pulses, Other (Mildly edema bilateral lower limb) Skin: No rashes, No breakdown, No significant lesion Neuro: Normal speech, Strength at 5/5 X4 ext (Strength oral 4/5 equal streng th), Normal tone, Sensation intact, Cranial nerves 3-12 NL, Other (Deferred gait) Psych/Mental Status: Mental status NL, Mood NL Assessment/Plan Assessment/Plan Assessment: Ms. Savage, an 83-year-old female with multiple chronic conditions, was transferred from [facility] to [facility] for further evaluation after a fall, presenting with lower back and hip pain, shortness of breath, and intermittent chest pain, and was found to have COVID-19, bilateral wheezing, and elevated NT-proBNP. Plan: #1 low back pain: Likely secondary due to fall with existing degenerative disc disease and osteoarthritis. Patient on as needed pain medication, gabapentin 300. #2 Known hypothyroidism: patient takes levothyroxine 50 mcg daily. Continue #3 Hyperlipidemia: Home pravastatin 20 mg to continue. #4 known CAD: Aspirin 81 mg with simvastatin 20 mg daily. At home patient takes aspirin 81 mg daily. As needed nitroglycerin 0.4 for chest pain. Check BNP troponin hospital. #5 Known constipation: on senna 8.6 And lactulose as needed #6 Chronic back pain: patient takes gabapentin 300 mg cap daily as needed pain medications. Poor historian. #7 depression/ anxiety: sertraline 50 mg daily #8 chronic COVID: We will check for COVID, as needed oxygen likely patient is oxygen dependent we will make sure patient has oxygen at discharge. #9 COPD: As needed albuterol and ipratropium #10 Known history of urinary retention/ urge incontinence: check urinalysis for possible underlying UTI. Check urinary retention with bladder scan. If more than 400 cc of urine retained, use catheterization along with the oxybutynin. #11 Recent fall: Could be mechanical fall, PT evaluation needed with possible need of DME, although patient has known cardiac history / aortic sclerosis could be contributory. Check for orthostatic vitals. #12 acute on chronic congestive heart failure: NT pro BNP elevated in recent labs, repeat BNP troponin, IV Lasix 40 mg daily to continue with close input and output with 2 g salt restriction and cardiac diet. #13 Known history of HFpEF, recent echo in past 1 month. 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 If patient becomes hypertensive we will reintroduce home medications of 10 losartan otherwise monitor. PUD prophylaxis: protonix 40mg daily oral DVT prophylaxis: Levonox 40mg /brisk movement as high-risk of DVT with minimal movement. Barriers to discharge: Medical diagnosis and management in progress. Patient lives with Facility. physical therapy evaluation and advanced discharge planning with . PCP: Dr. Sauceda. Case discussed with Dr. Morataya. Code Status: Full Code. Care discussion needed total 27 minutes bedside. Plan discussed with: Patient, Other (Primary team, RN) My Orders Orders - CHADWICK FRAZIER Procedure Category Date Status Time Admit ADMIT 08/02/24 Verified 02:44 Nitroglycerin PHA 08/02/24 Verified Sublingual (Ntrostat 02:45 Morphine Sulfate [facility] 08/02/24 Verified Injection 02:45 Oxygen By Nasal RT 08/02/24 Verified Cannula 02:44 Stat Ekg For Chest [facility] 08/02/24 Verified Pain 02:44 Notify Md Of Changes [facility] 08/02/24 Verified From Base 02:44 [employer] Crewmember For [facility] 08/02/24 Verified 24 Hours 02:44 Emergency Dysrhythmia [facility] 08/02/24 Verified Protocol 02:44 Rhythm Strips Once [facility] 08/02/24 Verified Every Shift 02:44 Date of Service: Aug 02, 2024 Billing Provider: MATEUS MORATAYA MD Common Visit Codes: [id number] INP/OBS CARE (HIGH) Secondary Visit Codes: [id number] CARE PLAN 30 MINUTES CHADWICK FRAZIER Aug 02, 2024 02:46 MATEUS MORATAYA MD Aug 02, 2024 07:54
[2024-08-02] MEDS: ACETAMINOPHEN 500 MG TAB or CAP PO SCH (05:00)
[2024-08-02] MEDS: ACETAMINOPHEN 325 MG TAB PO PRN (05:00)
[2024-08-02] MEDS ORDERED: LACTULOSE 20Gm/30ML SOLN PO PRN (06:15)
[2024-08-02] MEDS: PANTOPRAZOLE 40 MG TAB PO SCH (06:23)
[2024-08-02] MEDS: FUROSEMIDE 40 MG/4 ML VIAL IV SCH (06:24)
[2024-08-02] MEDS: LEVOTHYROXINE SODIUM 50 MCG TAB PO ONE (06:27)
--- NOTE | 2024-08-02 06:32 | DVH ---
CHEST RADIOGRAPH Indication: sob Technique: Single frontal chest radiograph Comparison: XY CHEST PORTABLE on DOS: 07/14/24, CHEST PORTABLE on DOS: 03/31/22, CHEST PORTABLE on DOS: 09/05/21, CHEST PORTABLE on DOS: 10/21/19, CHEST XRAY 1 VIEW on DOS: 10/19/19, XY CHEST PORTABLE on DOS : 07/14/24 FINDINGS: Frontal chest radiograph demonstrates no acute osseous or superficial soft tissue abnormalities. Wayne ed S shaped curvature of the thoracolumbar spine. The trachea is midline. The cardiac silhouette and mediastinum are within normal limits. No pneumothorax, pleural effusions, or consolidations. IMPRESSION: 1. No acute disease
[2024-08-02 07:30] LABS: Hematocrit 38.5 % (36.0-46.0); Hemoglobin 12.7 g/dL (12.2-16.2); Mean Corpuscular Hemoglobin 27.8 pg (28.0-32.0); Mean Corpuscular Hgb Conc. 33.1 g/dL (32.0-36.0); Platelet Count (auto) 154 10^3/uL (140-450); Red Blood Cells 4.58 10^6/uL (4.0-5.20); Red Cell Distribution Width 14.5 % (11.8-14.3)
[2024-08-02 07:46] LABS: Albumin 3.7 g/dL (3.2-4.8); Anion Gap 6 (5-15); BUN/Creatinine Ratio 25.6 (10.0-20.0); Bilirubin, Total 0.4 mg/dL (0.2-1.0); Blood Urea Nitrogen 23 mg/dL (9-23); Calcium 9.8 mg/dL (8.7-10.4); Carbon Dioxide 31 mmol/L (20-31); Chloride 100 mmol/L (98-107); Glucose 93 mg/dL (74-106); Potassium 4.7 mmol/L (3.5-5.1); Sodium 137 mmol/L (136-145)
[2024-08-02 07:49] LABS: Alanine Aminotransferase 108 U/L (7-40); Alkaline Phosphatase 170 U/L (46-116); Aspartate Aminotransferase 94 U/L (13-40)
[2024-08-02 07:57] LABS: Basophils % (manual) 0 (0.0-2.0); Blast Cells 0; Eosinophils % (manual) 0 (0-7); Metamyelocytes % 0; Myelocytes % 0; Promyelocytes % 0; Reactive Lymphocytes 0
[2024-08-02] MEDS: OXYBUTYNIN CHL 5 MG TAB PO SCH (08:43)
[2024-08-02] MEDS: ASPirin 81 mg TAB PO SCH (08:43)
[2024-08-02] MEDS: SERTRALINE HCL 50 MG TAB PO SCH (08:43)
[2024-08-02] MEDS: ENOXAPARIN SOD 40 MG/0.4 ML SYRINGE SC SCH (08:44)
[2024-08-02] MEDS: LIDOCAINE 5% TOPICAL PATCH TOP SCH (10:00)
[2024-08-02 10:57] LABS: Rapid Influenza A Negative (Negative); Rapid Influenza B Negative (Negative)
[2024-08-02 10:58] LABS: COVID19 ANTIGEN SOFIA FIA NEGATIVE (NEGATIVE)
[2024-08-02 11:18] LABS: Band Neutrophils % (manual) 2; Lymphocytes % (manual) 23 (10.0-50.0); Monocytes % (manual) 14 (0-12)
[2024-08-02 11:19] LABS: Platelet Estimate Adequate
[2024-08-02] MEDS ORDERED: ALBUTEROL SULF 2.5 MG/0.5ML(0.5%) NEB SOLN NEB SCH (12:00)
[2024-08-02] MEDS: IPRATROPIUM BROM 0.5 MG/2.5ML INH SOL NEB SCH (12:14)
[2024-08-02] MEDS: traMADol HCL 50 MG TAB PO PRN (20:24)
[2024-08-02] MEDS: SENNA 8.6 MG TAB PO SCH (21:17)
[2024-08-02] MEDS: PRAVASTATIN SODIUM 20 MG TAB PO SCH (21:17)
[2024-08-02] MEDS: GABAPENTIN 300 MG CAP PO SCH (21:17)
[2024-08-03] VITALS (8 sets, daily range): BP systolic 110–141; BP diastolic 50–61; PULSE 63–71; RESP 16–20; TEMP 98–98.6; O2SAT 90–98
[2024-08-03] MEDS: LEVOTHYROXINE SODIUM 50 MCG TAB PO SCH (05:25)
--- NOTE | 2024-08-03 10:59 | DVHDS2 ---
Discharge Summary Date of Admission Aug 02, 2024 at 01:45 Date of Discharge: Aug 03, 2024 Labs/Diagnostic Data: Laboratory Results Test 08/02/24 06:15 08/02/24 05:00 Influenza Type A Antigen Negative (Negative) Influenza Type B Antigen Negative (Negative) SARS-CoV-2 Antigen (Rapid) Negative (NEGATIVE) White Blood Count 4.0 10^3/uL (4.4-10.8) Red Blood Count 4.58 10^6/uL (4.0-5.20) Hemoglobin 12.7 g/dL (12.2-16.2) Hematocrit 38.5 % (36.0-46.0) Mean Corpuscular Volume 84.0 fL (80.0-100.0) Mean Corpuscular Hemoglobin 27.8 pg (28.0-32.0) Mean Corpuscular Hemoglobin Concent 33.1 g/dL (32.0-36.0) Red Cell Distribution Width 14.5 % (11.8-14.3) Platelet Count 154 10^3/uL (140-450) Mean Platelet Volume 9.2 fL (6.9-10.8) Neutrophils (%) (Auto) % (37.0-80.0) Lymphocytes (%) (Auto) % (10.0-50.0) Monocytes (%) (Auto) % (0.0-12.0) Basophils (%) (Auto) % (0.0-2.0) Neutrophils # (Auto) 10 ^3/uL (1.6-8.6) Lymphocytes # (Auto) 10 ^3/uL (0.4-5.4) Monocytes # (Auto) 10 ^3/uL (0-1.3) Differential Total Cells Counted 100.0 (100) Neutrophils % (Manual) 61 (37.0-80.0) Band Neutrophils % (Manual) 2 Lymphocytes % (Manual) 23 (10.0-50.0) Monocytes % (Manual) 14 (0-12) Eosinophils % (Manual) 0 (0-7) Basophils % (Manual) 0 (0.0-2.0) Metamyelocytes % (manual) 0 Myelocytes % (Manual) 0 Promyelocytes % (Manual) 0 Blast Cells % (Manual) 0 Reactive Lymphocytes 0 Platelet Estimate Adequate D-Dimer, Quantitative 3.91 mg/L FEU (0.0-0.49) Sodium Level 137 mmol/L (136-145) Potassium Level 4.7 mmol/L (3.5-5.1) Chloride Level 100 mmol/L (98-107) Carbon Dioxide Level 31 mmol/L (20-31) Anion Gap 6 (5-15) Blood Urea Nitrogen 23 mg/dL (9-23) Creatinine 0.90 mg/dL (0.550-1.02) Glomerular Filtration Rate Calc 63 mL/min (>90) BUN/Creatinine Ratio 25.6 (10.0-20.0) Serum Glucose 93 mg/dL (74-106) Calcium Level 9.8 mg/dL (8.7-10.4) Total Bilirubin 0.4 mg/dL (0.2-1.0) Aspartate Amino Transferase (AST) 94 U/L (13-40) Alanine Aminotransferase (ALT) 108 U/L (7-40) Alkaline Phosphatase 170 U/L (46-116) Creatine Kinase 51 U/L (34-145) Total Protein 6.0 g/dL (5.7-8.2) Albumin 3.7 g/dL (3.2-4.8) Vitamin B12 Level 630 pg/mL (211-911) Vitamin D 25-Hydroxy 32.0 ng/mL (30.0-100) Thyroid Stimulating Hormone (TSH) 1.36 uIU/mL (0.55-4.78) Other Laboratory Tests 08/02/24 05:00 Brief Hx & Hospital Course: Patient was transferred from [facility] after having a fall. Feeling better, will be discharged to [place]. Condition at Discharge: Stable Final Diagnosis/Problems List s/p fall shortness of breath COVID - resulted negative Discharge Disposition: Assisted Living Facility Discharge Instruct/Medications Diet: Cardiac 2g Na,low cholest Activity: No Restrictions, As Tolerated Follow Up/Referral: Follow up with PCP in 1-2 weeks Discharge back to [facility] Medications: Resume home meds Discharge Statement: "Patient was advised to return to the ER or call 911 if any headaches, dizziness, shortness of breath, chest pain, abdominal pain, bleeding, fevers, or worsening of medical condition. Patient was counseled about treatment plan, medications, possible side effects, patientverbalized understanding. All questions were answered to the best of my ability. This discharge took greater then 30 minutes in planning, reviewing documentation, counseling the patient, and discussing with other team members." ASSESSMENT ASSESSMENT Assessment s/p fall shortness of breath COVID - resulted negative Date of Service: Aug 03, 2024 Billing Provider: MATEUS COLLIER MD Common Visit Codes: 90979-QYL/OBS DISCH DAY >30min MATEUS COLLIER MD Aug 03, 2024 10:59
== END 2024-08-03 11:25 | disposition home or self-care (01) | DRG 291 ==
LOC: TELE-EAST 01:45
PROVIDERS: ADMIT Internal Medicine; ATTEND Internal Medicine
DX: I11.0 Hypertensive heart disease with heart failure (principal); I50.33 Acute on chronic diastolic (congestive) heart failure; M54.50 Low back pain, unspecified; E78.5 Hyperlipidemia, unspecified; F41.9 Anxiety disorder, unspecified; I25.10 Atherosclerotic heart disease of native coronary artery without angina pectoris; J44.9 Chronic obstructive pulmonary disease, unspecified; Z20.822 Contact with and (suspected) exposure to COVID-19; E03.9 Hypothyroidism, unspecified; K59.00 Constipation, unspecified; F32.A Depression, unspecified; Z90.49 Acquired absence of other specified parts of digestive tract; Z90.710 Acquired absence of both cervix and uterus; Z82.49 Family history of ischemic heart disease and other diseases of the circulatory system; Z82.3 Family history of stroke; Z87.891 Personal history of nicotine dependence; Z79.82 Long term (current) use of aspirin; Z79.899 Other long term (current) drug therapy
CPT/HCPCS: 36415; 71045; 80053; 82306; 82550; 82607; 84443; 85007; 85027; 85379; 87040; 87081; 87426; 87804; 94640; 97163; G0378

== ENCOUNTER → 2024-11-24 | Outpatient (CLI) | payer OTHER ==
[2024-11-24 08:26] LABS: Basophils # (auto) 0.1 10 ^3/uL (0-0.2); Basophils % (auto) 1.9 % (0.0-2.0); Eosinophils # (auto) 0.2 10 ^3/uL (0-0.8); Eosinophils % (auto) 5.4 % (0.0-7.0); Hematocrit 41.4 % (36.0-46.0); Hemoglobin 13.9 g/dL (12.2-16.2); Lymphocytes # (auto) 1.5 10 ^3/uL (0.4-5.4); Lymphocytes % (auto) 33.2 % (10.0-50.0); Mean Corpuscular Hemoglobin 28.1 pg (28.0-32.0); Mean Corpuscular Hgb Conc. 33.5 g/dL (32.0-36.0); Mean Corpuscular Volume 83.8 fL (80.0-100.0); Monocytes # (auto) 0.5 10 ^3/uL (0-1.3); Monocytes % (auto) 11.3 % (0.0-12.0); Neutrophils # (auto) 2.1 10 ^3/uL (1.6-8.6); Neutrophils % (auto) 48.2 % (37.0-80.0); Nucleated Red Blood Cells % 0.1 %; Platelet Count (auto) 175 10^3/uL (140-450); Red Blood Cells 4.93 10^6/uL (4.0-5.20); Red Cell Distribution Width 13.7 % (11.8-14.3); White Blood Cell 4.4 10^3/uL (4.4-10.8)
[2024-11-24 08:27] LABS: Urine Bacteria MANY /hpf (None Seen); Urine Blood Negative /uL (Negative); Urine Clarity Ex.Turbid (Clear); Urine Color Colorless (Yellow); Urine Protein, UAD TRACE (Negative); Urine Specific Gravity 1.014 (1.001-1.035); Urine Squamous Epithelial Cell MANY /hpf (<5); Urine Urobilinogen Normal (Negative); Urine WBC 7 /HPF (0-5)
[2024-11-24 08:42] LABS: Alanine Aminotransferase 11 U/L (7-40); Albumin 4.5 g/dL (3.2-4.8); Anion Gap 5 (5-15); Aspartate Aminotransferase 15 U/L (13-40); BUN/Creatinine Ratio 17.7 (10.0-20.0); Blood Urea Nitrogen 17 mg/dL (9-23); Chloride 103 mmol/L (98-107); Glucose 101 mg/dL (74-106); Potassium 4.5 mmol/L (3.5-5.1); Sodium 140 mmol/L (136-145); Total Protein 7.3 g/dL (5.7-8.2); Triglycerides 149 mg/dL (< 150)
[2024-11-24 08:43] LABS: Alkaline Phosphatase 174 U/L (46-116); Bilirubin, Total 0.5 mg/dL (0.2-1.0); Carbon Dioxide 32 mmol/L (20-31); Cholesterol 236 mg/dL (< 200); HDL Cholesterol 44 mg/dL (40-59); LDL Cholesterol 165 mg/dL (< 100)
== END | disposition home or self-care (01) ==
LOC: LAB 07:59
PROVIDERS: ATTEND Nurse Practitioner
DX: J44.9 Chronic obstructive pulmonary disease, unspecified (principal); I50.33 Acute on chronic diastolic (congestive) heart failure; E03.9 Hypothyroidism, unspecified; E78.5 Hyperlipidemia, unspecified
CPT/HCPCS: 36415; 80053; 80061; 81001; 84443; 85025

== ENCOUNTER → 2024-12-08 | Outpatient (CLI) | payer OTHER ==
[2024-12-08] MEDS: REGADENOSON 0.4 MG/5 ML SYRG IV ONE ×2 (10:07→10:10)
--- NOTE | 2024-12-08 13:24 | DVHSR ---
APPROVED REPORT Exam: Nuclear Stress Test BMI: 0 Stress Test Details HR Max Heart Rate (APMHR): 135.368368 bpm Target HR (85% APMHR): 114.498112 bpm BP ECG Stress ECG Conclusion lvef 54% no severe ischemia noted normal lvef normal perfusion NM EXAM: Myocardial Perfusion REST/STRESS Imaging Protocol: Rest Tc-99m/Stress Tc-99m 1 day Resting Data Rest SPECT myocardial perfusion imaging was performed in supine position 60 minutes following the int ravenous injection of 12.0 mCi of Tc-99m Sestamibi. Time of rest injection: 08:54 Date: 12/08/2024 Time of rest imagin:54 Date: 12/08/2024 Administration Route: IV Administration Site: Right Hand Pharmacologic Stress Pharmacologic stress test was performed by injecting Regadenoson 0.4 mg IV push followed by the intra venous injection of 33.2 mCi of Tc-99m Sestamibi. Time of stress injection: 10:11 Date: 12/08/2024 Time of stress imagin:11 Date: 12/08/2024 Administration Route: IV Administration Site: Right Hand The images were gated to evaluate regional wall motion and calculate left ventricular ejection fracti on. Stress only was performed in the Supine position. Nuclear Conclusion Nuclear Findings: negative for ischemia lvef 54% no severe ischemia noted normal lvef normal perfusion
== END | disposition home or self-care (01) ==
LOC: XYW 08:01
PROVIDERS: ATTEND Internal Medicine
DX: R07.9 Chest pain, unspecified (principal)
CPT/HCPCS: 78452; 93017; A9500; J2785